=== PATIENT | male | born 1945 | race Caucasian/White ===

== ENCOUNTER 2017-07-15 11:39 | Emergency (ER) | payer MEDICARE, OTHER ==
[2017-07-15 12:06] VITALS: BP 147/75
--- NOTE | 2017-07-15 12:42 | EDM.PDOC ---
ED HPI GENERAL MEDICAL PROBLEM - General Chief Complaint: Gastrointestinal Problem Stated Complaint: PAIN IN BOTTOM Time Seen by Provider: 07/15/17 12:24 Source of Information: Reports: Patient History Limitations: Reports: No Limitations - History of Present Illness INITIAL COMMENTS - FREE TEXT/NARRATIVE: HISTORY AND PHYSICAL: History of present illness: Patient is a 71-year-old male who presents to the emergency room with complaints of abdominal pain related to constipation. He states for the past 3 days he has had difficulty having a bowel movement. He reports he tried to digitally extracted himself but was only able to get "a tablespoon or so out". Has taken several doses of oral laxatives without relief. Does report that he has had difficulty urinating, "because there is so much pressure". He denies any fever, chills, chest pain or shortness of breath. He denies any nausea or vomiting. Review of systems: As per history of present illness and below otherwise all systems reviewed and negative. Past medical history: As per history of present illness and as reviewed below otherwise noncontributory. Surgical history: As per history of present illness and as reviewed below otherwise noncontributory. Social history: No reported history of drug or alcohol abuse. Family history: As per history of present illness and as reviewed below otherwise noncontributory. Physical exam: Gen.: Developed and well-nourished 71-year-old male. Alert and oriented. Nontoxic appearing and in no acute distress. HEENT: Atraumatic, normocephalic, pupils reactive, negative for conjunctival pallor or scleral icterus, mucous membranes moist, throat clear, neck supple, nontender, trachea midline. Lungs: Clear to auscultation, breath sounds equal bilaterally, chest nontender. Heart: S1S2, regular, negative for clicks, rubs, or JVD. Abdomen: Semi-firm, obese, nontender. Negative for masses or hepatosplenomegaly. Negative for costovertebral tenderness. Pelvis: Stable nontender. Genitourinary: Deferred. Rectal: This done with a chaparone at the bedside. Rectal hemorrhoids noted. There is no stool within the distal portion of the rectum that was palpated. Extremities: Atraumatic, moves all extremities per self, negative for cords or calf pain. Neurovascular unremarkable. Neuro: Awake, alert, oriented. Cranial nerves II through XII unremarkable. Cerebellum unremarkable. Motor and sensory unremarkable throughout. Exam nonfocal. Abdominal x-ray shows no obstruction is minimal gas and stool pattern. Patient states he has not been able to void very much. Patient was up to the bathroom and voided approximately 100 mls. Post void bladder scanner was done which showed around 300 left. I will do a CT of the abdomen and pelvis to further assess. CT of the abdomen/pelvis shows no bowel or colonic obstruction. Constipation noted. Obstructive 2 mm stone in the left intrarental collecting system. Labs are within normal limits. This was shared with the patient and at bedside. We discussed in length follow-up with urology. The patient and are adamant that he straight catheter to drain his bladder regardless of him being able to void. He is aware that the urinary retention is likely due to his history of BPH. This does sound chronic in nature. Give him Anusol HC for the rectal pain he is experiencing with straining to have a bowel movement. He will follow-up with urology and/or his primary caregiver in the next couple days. Diagnostics: CBC, CMP, Abdominal Flat Plat, UA Therapeutics: Enema Impression: Constipation Urinary retention Plan: 1. Please take 1/2 bottle of magnesium citrate for constipation. Start taking a Colace daily. Anusol- HC cream has been prescribed for you for the rectal pain. Please apply 2-4 times daily; after bowel movement. 2. Your urinary retention is likely due to BPH. Please follow up with your urologist, Dr Barker within the next week. 3. Follow-up with your primary caregiver in the next 1-2 days. Return to the ED as needed and as discussed. Definitive disposition and diagnosis as appropriate pending reevaluation and review of above. Rectal Pain Score (Numeric/FACES): 10 - Related Data Allergies Allergy/AdvReac Type Severity Reaction Status Date / Time Penicillins Allergy Swelling Verified 07/15/17 12:06 shellfish derived Allergy Airway Verified 07/15/17 12:06 Tightness tetanus immune globulin Allergy Cannot Verified 07/15/17 12:06 Remember Home Meds: Home Meds Levothyroxine [Synthroid] 100 mcg PO DAILY 12/04/13 [History] Metoprolol Succinate 25 mg PO DAILY 12/04/13 [History] Simvastatin 40 tab PO DAILY 12/04/13 [History] Tamsulosin HCl 0.4 mg PO DAILY 12/04/13 [History] Aspirin [Parker Chewable Aspirin] 81 mg PO DAILY 08/01/14 [History] Sennosides/Docusate Sodium [Stool Softener] 1 tab PO BID 08/01/14 [History] Gabapentin [Neurontin] 300 mg PO TID 03/11/16 [History] Isosorbide Mononitrate [Isosorbide Mononitrate ER] 30 mg PO DAILY 03/11/16 [ History] metFORMIN HCl [Metformin HCl] 500 mg PO DAILY 03/11/16 [History] Past Medical History HEENT History: Reports: Hard of Hearing Other HEENT History: wears glasses, has upper and lower dentures, has bilateral hearing aides Cardiovascular History: Reports: High Cholesterol, Hypertension Respiratory History: Reports: Sleep Apnea Other Respiratory History: does NOT use CPAP Gastrointestinal History: Reports: Colon Polyp Genitourinary History: Reports: Prostate Disorder Musculoskeletal History: Reports: Fracture Other Musculoskeletal History: fingers Neurological History: Reports: Neuropathy, Peripheral Psychiatric History: Reports: None Endocrine/Metabolic History: Reports: Hypothyroidism, Obesity/BMI 30+ Other Endocrine/Metabolic History: takes Metformin for diabetes Hematologic History: Reports: Blood Transfusion(s) Immunologic History: Reports: None Oncologic (Cancer) History: Reports: None Dermatologic History: Reports: None - Infectious Disease History Infectious Disease History: Reports: Chicken Pox, Measles, Mumps - Past Surgical History Head Surgeries/Procedures: Reports: None GI Surgical History: Reports: Colonoscopy, Hernia, Abdominal Endocrine Surgical History: Reports: None Musculoskeletal Surgical History: Reports: None Oncologic Surgical History: Reports: None Dermatological Surgical History: Reports: None Social & Family History - Family History Family Medical History: Noncontributory - Tobacco Use Smoking Status *Q: Never Smoker Years of Tobacco use: 40 Second Hand Smoke Exposure: No - Alcohol Use Days Per Week of Alcohol Use: 0 - Recreational Drug Use Recreational Drug Use: No Drug Use in Last 12 Months: No ED ROS GENERAL - Review of Systems Review Of Systems: ROS reveals no pertinent complaints other than HPI. ED EXAM, GI/ABD - Physical Exam Exam: See Below (See dictation) Course - Vital Signs Last Recorded V/S: Last Vital Signs Temp 97.8 F 07/15/17 12:04 Pulse 83 07/15/17 12:04 Resp 18 03/21/18 12:04 BP 147/75 H 03/21/18 12:04 Pulse Ox 94 L 07/15/17 12:04 - Orders/Labs/Meds Orders: Active Orders 24 hr Category Date Time Status Communication Order [RC] STAT Care 07/15/17 12:25 Active Enema [RC] ASDIRECTED Care 07/15/17 13:11 Active Abdomen Pelvis wo Cont [CT] Stat Exams 07/15/17 13:22 Taken Labs: Laboratory Tests 07/15/17 07/15/17 07/15/17 Range/Units 12:46 12:46 13:25 WBC 9.92 (4.0-11.0) K/uL RBC 4.24 L (4.50-5.90) M/uL Hgb 13.8 (13.0-17.0) g/dL Hct 40.0 (38.0-50.0) % MCV 94.3 (80.0-98.0) fL MCH 32.5 H (27.0-32.0) pg MCHC 34.5 (31.0-37.0) g/dL RDW Std Deviation 44.5 (28.0-62.0) fl RDW Coeff of [place] 13 (11.0-15.0) % Plt Count 221 (150-400) K/uL MPV 9.60 (7.40-12.00) fL Neut % (Auto) 72.5 (48.0-80.0) % Lymph % (Auto) 17.5 (16.0-40.0) % Pike % (Auto) 8.3 (0.0-15.0) % Eos % (Auto) 1.4 (0.0-7.0) % Baso % (Auto) 0.3 (0.0-1.5) % Neut # (Auto) 7.2 H (1.4-5.7) K/uL Lymph # (Auto) 1.7 (0.6-2.4) K/uL Pike # (Auto) 0.8 (0.0-0.8) K/uL Eos # (Auto) 0.1 (0.0-0.7) K/uL Baso # (Auto) 0.0 (0.0-0.1) K/uL Nucleated RBC % 0.0 /100WBC Nucleated RBCs # 0 K/uL Sodium 136 (136-148) mmol/L Potassium 4.0 (3.5-5.1) mmol/L Chloride 102 (98-107) mmol/L Carbon Dioxide 26.5 (21.0-32.0) mmol/L BUN 16 (7.0-18.0) mg/dL Creatinine 1.0 (0.8-1.3) mg/dL Est Cr Clr Drug Dosing 70.97 mL/min Estimated GFR (MDRD) > 60.0 ml/min Glucose 96 (74-106) mg/dL Calcium 9.0 (8.5-10.1) mg/dL Total Bilirubin 0.4 (0.2-1.0) mg/dL AST 36 (15-37) IU/L ALT 43 (14-63) IU/L Alkaline Phosphatase 71 (46-116) U/L Total Protein 7.1 (6.4-8.2) g/dL Albumin 3.7 (3.4-5.0) g/dL Globulin 3.4 (2.0-3.5) g/dL Albumin/Globulin Ratio 1.1 L (1.3-2.8) Urine Color YELLOW Urine Appearance CLEAR Urine pH 6.0 (5.0-8.0) Ur Specific Daphne 1.015 (1.001-1.035) Urine Protein NEGATIVE (NEGATIVE) mg/dL Urine Glucose (UA) NEGATIVE (NEGATIVE) mg/dL Urine Ketones NEGATIVE (NEGATIVE) mg/dL Urine Occult Blood NEGATIVE (NEGATIVE) Urine Nitrite NEGATIVE (NEGATIVE) Urine Bilirubin NEGATIVE (NEGATIVE) Urine Urobilinogen 0.2 (<2.0) EU/dL Ur Leukocyte Esterase NEGATIVE (NEGATIVE) Urine RBC 0-1 (0-2/HPF) Urine WBC 0-1 (0-5/HPF) Ur Epithelial Cells RARE (NONE-FEW) Urine Bacteria RARE (NEGATIVE) Departure - Departure Time of Disposition: 15:06 Disposition: Home, Self-Care 01 Clinical Impression: Urinary retention Constipation Qualifiers: Constipation type: unspecified constipation type Qualified Code(s): K59.00 - Constipation, unspecified - Discharge Information Instructions: Constipation, Adult, Acute Urinary Retention, Male, [id number] Referrals: PCP,None [Primary Care Provider] - Forms: ED Department Discharge Additional Instructions: The following information is given to patients seen in the emergency department who are being discharged to home. This information is to outline your options for follow-up care. We provide all patients seen in our emergency department with a follow-up referral. The need for follow-up, as well as the timing and circumstances, are variable depending upon the specifics of your emergency department visit. If you don't have a primary care physician on staff, we will provide you with a referral. We always advise you to contact your personal physician following an emergency department visit to inform them of the circumstance of the visit and for follow-up with them and/or the need for any referrals to a consulting specialist. The emergency department will also refer you to a specialist when appropriate. This referral assures that you have the opportunity for follow-up care with a specialist. All of these measure are taken in an effort to provide you with optimal care, which includes your follow-up. Under all circumstances we always encourage you to contact your private physician who remains a resource for coordinating your care. When calling for follow-up care, please make the office aware that this follow-up is from your recent emergency room visit. If for any reason you are refused follow-up, please contact the [facility] Emergency Department at and asked to speak to the emergency department charge nurse. [facility] - Urology [address] [place] [id number] [facility] [address] [place] [id number] 1. Please take 1/2 bottle of magnesium citrate for constipation (Can pick up operator over the counter). Start taking a Colace once daily. Anusol- HC cream has been prescribed for you for the rectal pain. Please apply 2-4 times daily; after bowel movement. 2. Your urinary retention is likely due to BPH. Please follow up with your urologist, Dr Barker within the next week. 3. Follow-up with your primary caregiver in the next 1-2 days. Return to the ED as needed and as discussed. - My Orders Last 24 Hours: My Active Orders 07/15/17 12:25 Communication Order [RC] STAT 07/15/17 13:11 Enema [RC] ASDIRECTED 07/15/17 13:22 Abdomen Pelvis wo Cont [CT] Stat - Assessment/Plan Last 24 Hours: My Active Orders 07/15/17 12:25 Communication Order [RC] STAT 07/15/17 13:11 Enema [RC] ASDIRECTED 07/15/17 13:22 Abdomen Pelvis wo Cont [CT] Stat
--- NOTE | 2017-07-15 13:06 | CR ---
EXAMINATION: Abdomen HISTORY: Pain COMPARISON: None TECHNIQUE: AP and upright views FINDINGS: There is no free air under the diaphragm. No abnormal calcifications project over the kidne ys. There is a nonobstructive bowel gas pattern with a small amount of stool and gas within the colon . Postsurgical changes projecting over the pelvis. Degenerative changes noted within the lower lumbar spine without acute osseous abdomen bodies. IMPRESSION: No acute findings demonstrated within the abdomen.
[2017-07-15 13:19] LABS: CHLORIDE,CL 102 mmol/L (98-107); SODIUM,NA 136 mmol/L (136-148)
--- NOTE | 2017-07-16 10:29 | CT ---
EXAM DATE: 07/15/17 PATIENT'S AGE: 71 Patient: RADHA COOPER Facility: [place], [place] Site . Site : 1945 Study: CT Abdomen [id number]/21/2018 2:31:05 PM Ordering Physician: Doctor Peterson Final Report: INDICATION: Pain. Bloating. HISTORY: Abdominal pain and bloating. COMPARISON: None. TECHNIQUE: CT of the abdomen and pelvis. No intravenous contrast. Coronal/sagittal reconstruction images. FINDINGS: Lung bases: There is no pleural or pericardial effusion. The heart size is normal. The lung bases demonstrate no acute airspace disease. No basilar pneumothorax. Abdomen/pelvis: There is no solid hepatic mass. The hepatic morphology is normal. No inflammatory changes at the gallbladder. Minor perinephric stranding. Benign right renal cysts. The largest is seen in the right kidney, measuring 4.0 cm in image 59, series 201. Vascular calcifications, along with a 2 mm stone in the left kidney on image 42. No obstructive urolith. Prostate does not appear enlarged. Constipation. Colonic diverticulosis. No findings for diverticulitis. No transition point to indicate a mechanical small bowel or colonic obstruction. Normal caliber appendix. Moderate arterial calcifications in a normal caliber abdominal aorta. No adenopathy by size criteria in the pelvis, retroperitoneum, gastrohepatic ligament, small bowel mesentery. Postoperative changes about the anterior abdominal wall, presumably related to an umbilical hernia repair. The bone windows demonstrate bridging osteophytes at the right SI joint. No lytic or blastic bone lesions. The alignment is preserved. On sagittal reconstruction images, vertebral body heights are maintained. IMPRESSION: 1. No small bowel or colonic obstruction. 2. Constipation. 3. Colonic diverticulosis, but no findings for diverticulitis. 4. Benign right renal cysts. 5. Nonobstructive, 2 mm stone in the left intrarenal collecting system. Additional calcifications about the renal jose antonio are most likely vascular in nature. Dictated by Guerrero Orellana MD @ 07/15/2017 2:53:36 PM Dictated by: Guerrero Orellana MD @ 07/15/2017 14:53:49 (Electronic Signature) Report Signed by Proxy. [facility]
== END 2017-07-15 16:04 | disposition home or self-care (01) ==
LOC: MW.ED 11:39
DX: K59.00 Constipation, unspecified (principal); R33.9 Retention of urine, unspecified; E78.00 Pure hypercholesterolemia, unspecified; I10 Essential (primary) hypertension; E11.42 Type 2 diabetes mellitus with diabetic polyneuropathy; E03.9 Hypothyroidism, unspecified; Z88.0 Allergy status to penicillin; Z91.013 Allergy to seafood; Z79.899 Other long term (current) drug therapy; Z79.84 Long term (current) use of oral hypoglycemic drugs; Z79.82 Long term (current) use of aspirin
CPT/HCPCS: 36415; 74019; 74019-26; 74176; 74176-26; 80053; 81001; 85025; 99283; 99284

== ENCOUNTER 2017-07-18 21:19 | Emergency (ER) | payer MEDICARE, OTHER ==
--- NOTE | 2017-07-18 21:32 | EDM.PDOC ---
ED HPI GENERAL MEDICAL PROBLEM - General Chief Complaint: Genitourinary Problem Stated Complaint: PROSTATE PROBLEMS Time Seen by Provider: 07/18/17 21:31 Source of Information: Reports: Patient - History of Present Illness INITIAL COMMENTS - FREE TEXT/NARRATIVE: HISTORY AND PHYSICAL: History of present illness: [Patient is been in the ER a couple of times over the last week with difficulty with urination history of enlarged prostate on Flomax, he is scheduled to see urology on Thursday in [place] one week from today. He had a complaint of inability to urinate however he was able to urinate and provide a urine sample, 178 mL's post void residual on bladder scan. Secondary complaint is that of hemorrhoids and pain with bowel movement, he was advised to use a laxative such as MiraLAX previously he did this one day with good benefit but discontinued. He has been using Preparation H No fever nausea vomiting chills sweats no chest pain shortness breath headache dizziness or palpitation ] Review of systems: As per history of present illness and below otherwise all systems reviewed and negative. Past medical history: As per history of present illness and as reviewed below otherwise noncontributory. Surgical history: As per history of present illness and as reviewed below otherwise noncontributory. Social history: No reported history of drug or alcohol abuse. Family history: As per history of present illness and as reviewed below otherwise noncontributory. Physical exam: HEENT: Atraumatic, normocephalic, pupils reactive, negative for conjunctival pallor or scleral icterus, mucous membranes moist, throat clear, neck supple, nontender, trachea midline. Lungs: Clear to auscultation, breath sounds equal bilaterally, chest nontender. Heart: S1S2, regular, negative for clicks, rubs, or JVD. Abdomen: Soft, nondistended, nontender. Negative for masses or hepatosplenomegaly. Negative for costovertebral tenderness. Pelvis: Stable nontender. Genitourinary: Deferred. Rectal: Deferred. Extremities: Atraumatic, negative for cords or calf pain. Neurovascular unremarkable. Neuro: Awake, alert, oriented. Cranial nerves II through XII unremarkable. Cerebellum unremarkable. Motor and sensory unremarkable throughout. Exam nonfocal. Diagnostics: [bladder scan cbc, cmp, ua urine culture Patient refuses flat and upright x-ray Therapeutics: ] Continue current medications MiraLAX daily Baby wipes post bowel movement Continue Preparation H, we did discuss rectal suppositories as well Impression: History of prostate enlargement History of hemorrhoids Chronic history of baseline Definitive disposition and diagnosis as appropriate pending reevaluation and review of above. Hypogastric Pain Score (Numeric/FACES): 5 - Related Data Allergies Allergy/AdvReac Type Severity Reaction Status Date / Time Penicillins Allergy Swelling Verified 07/15/17 12:06 shellfish derived Allergy Airway Verified 07/15/17 12:06 Tightness tetanus immune globulin Allergy Cannot Verified 07/15/17 12:06 Remember Home Meds: Home Meds Levothyroxine [Synthroid] 100 mcg PO DAILY 12/04/13 [History] Metoprolol Succinate 25 mg PO DAILY 12/04/13 [History] Simvastatin 40 tab PO DAILY 12/04/13 [History] Tamsulosin HCl 0.4 mg PO DAILY 12/04/13 [History] Aspirin [Parker Chewable Aspirin] 81 mg PO DAILY 08/01/14 [History] Sennosides/Docusate Sodium [Stool Softener] 1 tab PO BID 08/01/14 [History] Gabapentin [Neurontin] 300 mg PO BID 03/11/16 [History] Isosorbide Mononitrate [Isosorbide Mononitrate ER] 30 mg PO DAILY 03/11/16 [ History] metFORMIN HCl [Metformin HCl] 500 mg PO DAILY 03/11/16 [History] Past Medical History HEENT History: Reports: Hard of Hearing Other HEENT History: wears glasses, has upper and lower dentures, has bilateral hearing aides Cardiovascular History: Reports: High Cholesterol, Hypertension Respiratory History: Reports: Sleep Apnea Other Respiratory History: does NOT use CPAP Gastrointestinal History: Reports: Colon Polyp Genitourinary History: Reports: Prostate Disorder Musculoskeletal History: Reports: Fracture Other Musculoskeletal History: fingers Neurological History: Reports: Neuropathy, Peripheral Psychiatric History: Reports: None Endocrine/Metabolic History: Reports: Hypothyroidism, Obesity/BMI 30+ Other Endocrine/Metabolic History: takes Metformin for diabetes Hematologic History: Reports: Blood Transfusion(s) Immunologic History: Reports: None Oncologic (Cancer) History: Reports: None Dermatologic History: Reports: None - Infectious Disease History Infectious Disease History: Reports: Chicken Pox, Measles, Mumps - Past Surgical History Head Surgeries/Procedures: Reports: None GI Surgical History: Reports: Colonoscopy, Hernia, Abdominal Endocrine Surgical History: Reports: None Musculoskeletal Surgical History: Reports: None Oncologic Surgical History: Reports: None Dermatological Surgical History: Reports: None Social & Family History - Family History Family Medical History: Noncontributory - Tobacco Use Smoking Status *Q: Never Smoker Years of Tobacco use: 40 Second Hand Smoke Exposure: No - Alcohol Use Days Per Week of Alcohol Use: 0 - Recreational Drug Use Recreational Drug Use: No Drug Use in Last 12 Months: No ED ROS GENERAL - Review of Systems Review Of Systems: ROS reveals no pertinent complaints other than HPI. ED EXAM, GENERAL - Physical Exam Exam: See Below Course - Vital Signs Last Recorded V/S: Last Vital Signs Temp 98.4 F 07/18/17 21:19 Pulse 70 07/18/17 21:19 Resp 18 07/18/17 21:19 BP 118/68 07/18/17 21:19 Pulse Ox 95 07/18/17 21:19 - Orders/Labs/Meds Orders: Active Orders 24 hr Category Date Time Status CULTURE URINE [RM] Stat Lab 07/18/17 21:55 Received Labs: Laboratory Tests 07/18/17 07/18/17 07/18/17 Range/Units 21:48 21:48 21:48 WBC 7.24 (4.0-11.0) K/uL RBC 4.13 L (4.50-5.90) M/uL Hgb 13.4 (13.0-17.0) g/dL Hct 38.8 (38.0-50.0) % MCV 93.9 (80.0-98.0) fL MCH 32.4 H (27.0-32.0) pg MCHC 34.5 (31.0-37.0) g/dL RDW Std Deviation 44.8 (28.0-62.0) fl RDW Coeff of [place] 13 (11.0-15.0) % Plt Count 228 (150-400) K/uL MPV 9.60 (7.40-12.00) fL Neut % (Auto) 54.2 (48.0-80.0) % Lymph % (Auto) 31.8 (16.0-40.0) % [place] % (Auto) 9.0 (0.0-15.0) % Eos % (Auto) 4.6 (0.0-7.0) % Baso % (Auto) 0.4 (0.0-1.5) % Neut # (Auto) 3.9 (1.4-5.7) K/uL Lymph # (Auto) 2.3 (0.6-2.4) K/uL [place] # (Auto) 0.7 (0.0-0.8) K/uL Eos # (Auto) 0.3 (0.0-0.7) K/uL Baso # (Auto) 0.0 (0.0-0.1) K/uL Nucleated RBC % 0.0 /100WBC Nucleated RBCs # 0 K/uL Sodium 139 (136-148) mmol/L Potassium 3.8 (3.5-5.1) mmol/L Chloride 106 (98-107) mmol/L Carbon Dioxide 24.4 (21.0-32.0) mmol/L BUN 18 (7.0-18.0) mg/dL Creatinine 1.1 (0.8-1.3) mg/dL Est Cr Clr Drug Dosing 64.52 mL/min Estimated GFR (MDRD) > 60.0 ml/min Glucose 100 (74-106) mg/dL Calcium 9.1 (8.5-10.1) mg/dL Total Bilirubin 0.2 (0.2-1.0) mg/dL AST 32 (15-37) IU/L ALT 39 (14-63) IU/L Alkaline Phosphatase 78 (46-116) U/L Total Protein 6.8 (6.4-8.2) g/dL Albumin 3.6 (3.4-5.0) g/dL Globulin 3.2 (2.0-3.5) g/dL Albumin/Globulin Ratio 1.1 L (1.3-2.8) Prostate Specific Ag 1.90 (0.05-4.00) ng/mL Urine Color Urine Appearance Urine pH (5.0-8.0) Ur Specific [place] (1.001-1.035) Urine Protein (NEGATIVE) mg/dL Urine Glucose (UA) (NEGATIVE) mg/dL Urine Ketones (NEGATIVE) mg/dL Urine Occult Blood (NEGATIVE) Urine Nitrite (NEGATIVE) Urine Bilirubin (NEGATIVE) Urine Urobilinogen (<2.0) EU/dL Ur Leukocyte Esterase (NEGATIVE) Urine RBC (0-2/HPF) Urine WBC (0-5/HPF) Ur Epithelial Cells (NONE-FEW) Urine Bacteria (NEGATIVE) Urine Mucus (NONE-MOD) 07/18/17 Range/Units 21:55 WBC (4.0-11.0) K/uL RBC (4.50-5.90) M/uL Hgb (13.0-17.0) g/dL Hct (38.0-50.0) % MCV (80.0-98.0) fL MCH (27.0-32.0) pg MCHC (31.0-37.0) g/dL RDW Std Deviation (28.0-62.0) fl RDW Coeff of [place] (11.0-15.0) % Plt Count (150-400) K/uL MPV (7.40-12.00) fL Neut % (Auto) (48.0-80.0) % Lymph % (Auto) (16.0-40.0) % [place] % (Auto) (0.0-15.0) % Eos % (Auto) (0.0-7.0) % Baso % (Auto) (0.0-1.5) % Neut # (Auto) (1.4-5.7) K/uL Lymph # (Auto) (0.6-2.4) K/uL [place] # (Auto) (0.0-0.8) K/uL Eos # (Auto) (0.0-0.7) K/uL Baso # (Auto) (0.0-0.1) K/uL Nucleated RBC % /100WBC Nucleated RBCs # K/uL Sodium (136-148) mmol/L Potassium (3.5-5.1) mmol/L Chloride (98-107) mmol/L Carbon Dioxide (21.0-32.0) mmol/L BUN (7.0-18.0) mg/dL Creatinine (0.8-1.3) mg/dL Est Cr Clr Drug Dosing mL/min Estimated GFR (MDRD) ml/min Glucose (74-106) mg/dL Calcium (8.5-10.1) mg/dL Total Bilirubin (0.2-1.0) mg/dL AST (15-37) IU/L ALT (14-63) IU/L Alkaline Phosphatase (46-116) U/L Total Protein (6.4-8.2) g/dL Albumin (3.4-5.0) g/dL Globulin (2.0-3.5) g/dL Albumin/Globulin Ratio (1.3-2.8) Prostate Specific Ag (0.05-4.00) ng/mL Urine Color YELLOW Urine Appearance CLEAR Urine pH 6.0 (5.0-8.0) Ur Specific [place] 1.025 (1.001-1.035) Urine Protein NEGATIVE (NEGATIVE) mg/dL Urine Glucose (UA) NEGATIVE (NEGATIVE) mg/dL Urine Ketones NEGATIVE (NEGATIVE) mg/dL Urine Occult Blood NEGATIVE (NEGATIVE) Urine Nitrite NEGATIVE (NEGATIVE) Urine Bilirubin NEGATIVE (NEGATIVE) Urine Urobilinogen 0.2 (<2.0) EU/dL Ur Leukocyte Esterase NEGATIVE (NEGATIVE) Urine RBC NONE SEEN (0-2/HPF) Urine WBC 0-1 (0-5/HPF) Ur Epithelial Cells NOT SEEN (NONE-FEW) Urine Bacteria RARE (NEGATIVE) Urine Mucus FEW (NONE-MOD) Departure - Departure Time of Disposition: 22:50 Disposition: Home, Self-Care 01 Condition: Good Clinical Impression: Hemorrhoids - Discharge Information Referrals: PCP,None [Primary Care Provider] - Forms: ED Department Discharge Additional Instructions: Continue current home medications Again as discussed sitz bath and baby wipes post bowel movement Rectal suppositories may benefit Return if symptoms persist or worsen Follow-up with urology as scheduled next week The following information is given to patients seen in the emergency department who are being discharged to home. This information is to outline your options for follow-up care. We provide all patients seen in our emergency department with a follow-up referral. The need for follow-up, as well as the timing and circumstances, are variable depending upon the specifics of your emergency department visit. If you don't have a primary care physician on staff, we will provide you with a referral. We always advise you to contact your personal physician following an emergency department visit to inform them of the circumstance of the visit and for follow-up with them and/or the need for any referrals to a consulting specialist. The emergency department will also refer you to a specialist when appropriate. This referral assures that you have the opportunity for follow-up care with a specialist. All of these measure are taken in an effort to provide you with optimal care, which includes your follow-up. Under all circumstances we always encourage you to contact your private physician who remains a resource for coordinating your care. When calling for follow-up care, please make the office aware that this follow-up is from your recent emergency room visit. If for any reason you are refused follow-up, please contact the [facility] emergency department at and asked to speak to the emergency department charge nurse. - My Orders Last 24 Hours: My Active Orders 07/18/17 21:55 CULTURE URINE [RM] Stat - Assessment/Plan Last 24 Hours: My Active Orders 07/18/17 21:55 CULTURE URINE [RM] Stat
[2017-07-18] MEDS ORDERED: Enalaprilat 1.25 MG/ML SDV IVPUSH ONE (22:08)
[2017-07-18 22:21] LABS: CHLORIDE,CL 106 mmol/L (98-107); SODIUM,NA 139 mmol/L (136-148)
[2017-07-18 22:53] VITALS: BP 116/70
== END 2017-07-18 22:58 | disposition home or self-care (01) ==
LOC: MW.ED 21:19
DX: K64.9 Unspecified hemorrhoids (principal); I10 Essential (primary) hypertension; E11.9 Type 2 diabetes mellitus without complications; E03.9 Hypothyroidism, unspecified; E78.00 Pure hypercholesterolemia, unspecified; Z79.82 Long term (current) use of aspirin; Z88.0 Allergy status to penicillin; Z88.7 Allergy status to serum and vaccine; Z79.84 Long term (current) use of oral hypoglycemic drugs; Z91.013 Allergy to seafood; Z79.899 Other long term (current) drug therapy
CPT/HCPCS: 36415; 80053; 81001; 84153; 85025; 87086; 99283

== ENCOUNTER 2018-08-11 12:34 | Emergency (ER) | payer MEDICARE, OTHER ==
--- NOTE | 2018-08-11 13:02 | EDM.PDOC ---
ED HPI GENERAL MEDICAL PROBLEM - General Chief Complaint: Gastrointestinal Problem Stated Complaint: CONSTIPATED AND DIFFICULTY URINATING Time Seen by Provider: 08/11/18 12:57 Source of Information: Reports: Patient History Limitations: Reports: No Limitations - History of Present Illness INITIAL COMMENTS - FREE TEXT/NARRATIVE: HISTORY AND PHYSICAL: History of present illness: Patient is a 72-year-old male who presents to the emergency room today with complaints of constipation and decreased urinary output. He states he voided a appropriate amount at 7 AM this morning but has not been able to void since that time. He states he feels like his bladder is full but and able to start her initiate stream. Patient does have a history of enlarged prostate and has been on Flomax in the past. He has also seen Dr. Barker for this issue. He is also concerned as he has not had a bowel movement yet today. He states he routinely has a bowel movement daily and gave himself an enema this morning without any results. Yesterday's BM was normal. Denies any blood or mucousy stools. Patient denies any fever, chills, headache, change in vision, syncope or near syncope. Denies any chest pain, back pain, shortness of breath or cough. Denies any abdominal pain, nausea, vomiting. Has not noted any blood in urine or stool. Patient has been eating and drinking appropriately. Review of systems: As per history of present illness and below otherwise all systems reviewed and negative. Past medical history: As per history of present illness and as reviewed below otherwise noncontributory. Surgical history: As per history of present illness and as reviewed below otherwise noncontributory. Social history: See social history for further information Family history: As per history of present illness and as reviewed below otherwise noncontributory. Physical exam: General: Well-developed and well-nourished 72-year-old male. Alert and oriented. Nontoxic appearing and in no acute distress. HEENT: Atraumatic, normocephalic, pupils equal and reactive bilaterally, negative for conjunctival pallor or scleral icterus, mucous membranes moist, TMs normal bilaterally, throat clear, neck supple, nontender, trachea midline. No drooling or trismus noted. No meningeal signs. No hot potato voice noted. Lungs: Clear to auscultation, breath sounds equal bilaterally, chest nontender. Heart: S1S2, regular rate and rhythm without overt murmur Abdomen: Obese, semifirm, nontender. Negative for masses. Negative for costovertebral tenderness. Pelvis: Stable nontender. Genitourinary: Deferred. Rectal: Deferred. Skin: Intact, warm, dry. No lesions or rashes noted. Extremities: Atraumatic, moves all extremities per self with difficulty or deficits, negative for cords or calf pain. Neurovascular unremarkable. Neuro: Awake, alert, oriented. Cranial nerves II through XII unremarkable. Cerebellum unremarkable. Motor and sensory unremarkable throughout. Exam nonfocal. Notes: Upon patient arrival he states he needs to have a bowel movement. Patient states he had a large bowel movement and no longer has concerns of his constipation. Therefore the x-ray will be canceled at this time. We discussed [id number] medications he can take for routine/regular bowel movements. Bladder scanner shows 396cc preop void. Patient states he is unable to give a urine sample. Fully catheter was inserted for urinalysis. UA shows no evidence of a bladder infection. Dr Barker was consulted on this patient. Findings and my discussion with Dr. Barker were reviewed with the patient. Lucero recommends that the patient take 2 tabs of the Flomax daily until Thursday along with 3 days of Cipro to prevent UTI. Keep the Frazier catheter in place and patient may remove per himself on Thursday or return to the emergency room to have this removed by staff. This information was shared with the patient. Patient will be discharged to home. Supportive care measures were reviewed and discussed. Voices understanding and is agreeable to plan of care. Denies any further questions or concerns at this time. Diagnostics: Bladder scan, flat and upright, UA Therapeutics: Frazier catheter Impression: History of enlarged prostate Urinary retention Plan: 1. Dr Barker wants you to take 2 tabs of your Flomax daily (2 tabs of Flomax 0.4mg) until Thursday. On Thursday, you may return to taking one dose daily. Keep the catheter in until Thursday. You may return on Thursday to have this removed if your uncomfortable doing this yourself. 2. Colace or MiraLAX as needed for your constipation concerns. 3. Take antbiotic as directed. Drink plenty of water. 4. Return to the ED as needed and as discussed. Definitive disposition and diagnosis as appropriate pending reevaluation and review of above. Abdominal Pain Score (Numeric/FACES): 10 - Related Data Allergies Allergy/AdvReac Type Severity Reaction Status Date / Time Penicillins Allergy Swelling Verified 08/11/18 12:55 shellfish derived Allergy Airway Verified 08/11/18 12:55 Tightness tetanus immune globulin Allergy Cannot Verified 08/11/18 12:55 Remember Home Meds: Home Meds Levothyroxine [Synthroid] 100 mcg PO DAILY 12/04/13 [History] Metoprolol Succinate 25 mg PO DAILY 12/04/13 [History] Simvastatin 40 tab PO DAILY 12/04/13 [History] Tamsulosin HCl 0.4 mg PO DAILY 12/04/13 [History] Sennosides/Docusate Sodium [Stool Softener] 1 tab PO BID 08/01/14 [History] Gabapentin [Neurontin] 300 mg PO BID 03/11/16 [History] Isosorbide Mononitrate [Isosorbide Mononitrate ER] 30 mg PO DAILY 03/11/16 [ History] metFORMIN HCl [Metformin HCl] 500 mg PO DAILY 03/11/16 [History] Ciprofloxacin HCl [Cipro] 500 mg PO BID 3 Days #6 tablet 08/11/18 [Rx] Past Medical History HEENT History: Reports: Hard of Hearing Other HEENT History: wears glasses, has upper and lower dentures, has bilateral hearing aides Cardiovascular History: Reports: High Cholesterol, Hypertension Respiratory History: Reports: Sleep Apnea Other Respiratory History: does NOT use CPAP Gastrointestinal History: Reports: Colon Polyp Genitourinary History: Reports: Prostate Disorder Musculoskeletal History: Reports: Fracture Other Musculoskeletal History: fingers Neurological History: Reports: Neuropathy, Peripheral Psychiatric History: Reports: None Endocrine/Metabolic History: Reports: Hypothyroidism, Obesity/BMI 30+ Other Endocrine/Metabolic History: takes Metformin for diabetes Hematologic History: Reports: Blood Transfusion(s) Immunologic History: Reports: None Oncologic (Cancer) History: Reports: None Dermatologic History: Reports: None - Infectious Disease History Infectious Disease History: Reports: Chicken Pox, Measles, Mumps - Past Surgical History Head Surgeries/Procedures: Reports: None GI Surgical History: Reports: Colonoscopy, Hernia, Abdominal Endocrine Surgical History: Reports: None Musculoskeletal Surgical History: Reports: None Oncologic Surgical History: Reports: None Dermatological Surgical History: Reports: None Social & Family History - Family History Family Medical History: Noncontributory ED ROS GENERAL - Review of Systems Review Of Systems: ROS reveals no pertinent complaints other than HPI. ED EXAM, GI/ABD - Physical Exam Exam: See Below (See dictation) Course - Vital Signs Last Recorded V/S: Last Vital Signs Temp 97.8 F 08/11/18 12:56 Pulse 78 08/11/18 15:50 Resp 18 08/11/18 15:50 BP 152/70 H 08/11/18 15:50 Pulse Ox 95 08/11/18 15:50 - Orders/Labs/Meds Orders: Active Orders 24 hr Category Date Time Status Bladder Scan [RC] ASDIRECTED Care 08/11/18 13:00 Active Frazier Catheter Insertion [Insert Urinary Catheter] [OM. Care 08/11/18 14:00 Ordered PC] Q24H Urinary Catheter Assessment [RC] ASDIRECTED Care 08/11/18 13:48 Active Labs: Laboratory Tests 08/11/18 Range/Units 13:41 Urine Color YELLOW Urine Appearance CLEAR Urine pH 6.0 (5.0-8.0) Ur Specific [place] 1.020 (1.001-1.035) Urine Protein NEGATIVE (NEGATIVE) mg/dL Urine Glucose (UA) NEGATIVE (NEGATIVE) mg/dL Urine Ketones NEGATIVE (NEGATIVE) mg/dL Urine Occult Blood NEGATIVE (NEGATIVE) Urine Nitrite NEGATIVE (NEGATIVE) Urine Bilirubin NEGATIVE (NEGATIVE) Urine Urobilinogen 0.2 (<2.0) EU/dL Ur Leukocyte Esterase NEGATIVE (NEGATIVE) Departure - Departure Time of Disposition: 14:27 Disposition: Home, Self-Care 01 Clinical Impression: Urinary retention - Discharge Information Prescriptions: Ciprofloxacin HCl [Cipro] 500 mg PO BID 3 Days #6 tablet Instructions: Indwelling Urinary Catheter Care, Adult, [id number], Acute Urinary Retention, Male, [id number] Referrals: Livan Gold MD [Primary Care Provider] - Forms: ED Department Discharge Additional Instructions: The following information is given to patients seen in the emergency department who are being discharged to home. This information is to outline your options for follow-up care. We provide all patients seen in our emergency department with a follow-up referral. The need for follow-up, as well as the timing and circumstances, are variable depending upon the specifics of your emergency department visit. If you don't have a primary care physician on staff, we will provide you with a referral. We always advise you to contact your personal physician following an emergency department visit to inform them of the circumstance of the visit and for follow-up with them and/or the need for any referrals to a consulting specialist. The emergency department will also refer you to a specialist when appropriate. This referral assures that you have the opportunity for follow-up care with a specialist. All of these measure are taken in an effort to provide you with optimal care, which includes your follow-up. Under all circumstances we always encourage you to contact your private physician who remains a resource for coordinating your care. When calling for follow-up care, please make the office aware that this follow-up is from your recent emergency room visit. If for any reason you are refused follow-up, please contact the [facility] Emergency Department at and asked to speak to the emergency department charge nurse. [facility] [address] [place] [id number] Barker wants you to take 2 tabs of your Flomax daily (2 tabs of Flomax 0.4mg) until Thursday. On Thursday, you may return to taking one dose daily. Keep the catheter in until Thursday. You may return on Thursday to have this removed if your uncomfortable doing this yourself. 2. Colace or MiraLAX as needed for your constipation concerns. 3. Take antbiotic as directed. Drink plenty of water. 4. Return to the ED as needed and as discussed. - My Orders Last 24 Hours: My Active Orders 08/11/18 13:00 Bladder Scan [RC] ASDIRECTED 08/11/18 13:48 Urinary Catheter Assessment [RC] ASDIRECTED 08/11/18 14:00 Frazier Catheter Insertion [Insert Urinary Catheter] [OM.PC] Q24H - Assessment/Plan Last 24 Hours: My Active Orders 08/11/18 13:00 Bladder Scan [RC] ASDIRECTED 08/11/18 13:48 Urinary Catheter Assessment [RC] ASDIRECTED 08/11/18 14:00 Frazier Catheter Insertion [Insert Urinary Catheter] [OM.PC] Q24H
--- NOTE | 2018-08-11 14:51 | CR ---
EXAMINATION: Abdomen HISTORY: Pain COMPARISON: CT dated 07/15/2017 TECHNIQUE: AP and upright views FINDINGS: There is no free air under the diaphragm. There is a nonobstructive bowel gas pattern. No abnormal calcifications project over the kidneys. Visualized osseous structures appear normal. Hernia repair clips project over the pelvis. IMPRESSION: 1. Nonobstructive bowel gas pattern without acute findings.
[2018-08-11 15:50] VITALS: BP 152/70
== END 2018-08-11 15:50 | disposition home or self-care (01) ==
LOC: MW.ED 12:34
DX: R33.9 Retention of urine, unspecified (principal); E03.9 Hypothyroidism, unspecified; E78.00 Pure hypercholesterolemia, unspecified; I10 Essential (primary) hypertension; Z87.438 Personal history of other diseases of male genital organs; Z88.0 Allergy status to penicillin; Z91.013 Allergy to seafood; Z88.7 Allergy status to serum and vaccine; Z79.899 Other long term (current) drug therapy
CPT/HCPCS: 74019; 74019-26; 81003; 99283; 99284-25

== ENCOUNTER 2019-08-26 06:57 | Emergency (ER) | payer MEDICARE, OTHER ==
[2019-08-26] MEDS ORDERED: Sodium Chloride 0.9% 2.5 ML Syringe FLUSH PRN (07:03)
[2019-08-26] MEDS ORDERED: Sodium Chloride 0.9% 10 ML Syringe FLUSH PRN ×2 (07:03)
[2019-08-26] MEDS ORDERED: Aspirin 325 MG Tab.EC PO ONE (07:17)
[2019-08-26] MEDS ORDERED: Aspirin 81 MG Tab.Chew PO ONE (07:23)
--- NOTE | 2019-08-26 07:25 | EDM.PDOC ---
ED HPI GENERAL MEDICAL PROBLEM - General Chief Complaint: Chest Pain Stated Complaint: CHEST PAIN AND SHORTNESS OF BREATH Time Seen by Provider: 08/26/19 07:02 Source of Information: Reports: Patient - History of Present Illness INITIAL COMMENTS - FREE TEXT/NARRATIVE: Patient is a 73-year-old male with a history of hypertension, hyperlipidemia, hypothyroidism, diabetes presenting with now 2 out of 10 substernal chest tightness with some radiation to the right arm woke him up from sleep at midnight tonight. At time of symptom onset the pain was 7 out of 10 it is subsequently improved to 2 out of 10. It is associated with her shortness of breath. He denies worsening with exertion he reports that it does feel worse when he lays back which also worsens the shortness of breath associated with this. He denies any lower extremity pain or swelling. He denies prior history of CHF or CAD he is a non-smoker. He reports that he is supposed to see "Dr. Snow " next Thursday this is for evaluation to see if he can be cleared to have an intervention done on his neck related to chronic arthritis and neck pain. He took some of his morning meds but cannot recall which ones. He denies taking aspirin or any other medicines for this pain. - Related Data Allergies Allergy/AdvReac Type Severity Reaction Status Date / Time Penicillins Allergy Swelling Verified 08/26/19 07:08 shellfish derived Allergy Airway Verified 08/26/19 07:08 Tightness tetanus immune globulin Allergy Cannot Verified 08/26/19 07:08 Remember Home Meds: Home Meds Levothyroxine [Synthroid] 100 mcg PO DAILY 12/04/13 [History] Metoprolol Succinate 25 mg PO DAILY 12/04/13 [History] Simvastatin 40 tab PO DAILY 12/04/13 [History] Tamsulosin HCl 0.4 mg PO DAILY 12/04/13 [History] Sennosides/Docusate Sodium [Stool Softener] 1 tab PO BID 08/01/14 [History] Gabapentin [Neurontin] 300 mg PO BID 03/11/16 [History] Isosorbide Mononitrate [Isosorbide Mononitrate ER] 30 mg PO DAILY 03/11/16 [ History] metFORMIN HCl [Metformin HCl] 500 mg PO DAILY 03/11/16 [History] Past Medical History HEENT History: Reports: Hard of Hearing Other HEENT History: wears glasses, has upper and lower dentures, has bilateral hearing aides Cardiovascular History: Reports: High Cholesterol, Hypertension Respiratory History: Reports: Sleep Apnea Other Respiratory History: does NOT use CPAP Gastrointestinal History: Reports: Colon Polyp Genitourinary History: Reports: Prostate Disorder Musculoskeletal History: Reports: Fracture Other Musculoskeletal History: fingers Neurological History: Reports: Neuropathy, Peripheral Psychiatric History: Reports: None Endocrine/Metabolic History: Reports: Hypothyroidism, Obesity/BMI 30+ Other Endocrine/Metabolic History: takes Metformin for diabetes Hematologic History: Reports: Blood Transfusion(s) Immunologic History: Reports: None Oncologic (Cancer) History: Reports: None Dermatologic History: Reports: None - Infectious Disease History Infectious Disease History: Reports: None - Past Surgical History Head Surgeries/Procedures: Reports: None GI Surgical History: Reports: Colonoscopy, Hernia, Abdominal Endocrine Surgical History: Reports: None Musculoskeletal Surgical History: Reports: None Oncologic Surgical History: Reports: None Dermatological Surgical History: Reports: None Social & Family History - Family History Family Medical History: Noncontributory - Tobacco Use Smoking Status *Q: Never Smoker - Caffeine Use Caffeine Use: Reports: None - Recreational Drug Use Recreational Drug Use: No ED ROS GENERAL - Review of Systems Review Of Systems: See Below Free Text/Narrative/Comment: General: No fever. Skin: No rash. Eyes: No vision problems. ENT: No sore throat. Neck: No neck stiffness. Respiratory: Per HPI Cardiac: Per HPI Gastrointestinal: No nausea, vomiting or abdominal pain. Urinary: No dysuria. Musculoskeletal: No myalgias/arthralgias. Neurologic: No headache. ED EXAM, GENERAL - Physical Exam Exam: See Below Free Text/Narrative:: General Appearance: No acute distress, appears comfortable Skin: No rash HEENT: Normocephalic/atraumatic, sclera anicteric, mucous membranes moist Neck: Normal range of motion Chest and Lungs: Bilateral breath sounds, clear to auscultation Cardiovascular: Regular rate and rhythm, no murmur Abdomen: Soft, non-tender, obese Back: Normal Musculoskeletal: No edema or tenderness Neurologic: Awake, alert, no obvious deficits, moving all extremities Psychiatric: Appropriate, cooperative EKG INTERPRETATION EKG Date: 08/26/19 Rhythm: NSR Rate (Beats/Min): 59 EKG Interpretation Comments: Normal axis with no acute ischemia QTC normal at 383 occasional PVC Course - Vital Signs Text/Narrative:: 73-year-old male with no prior cardiac history but multiple cardiac risk factors who is presenting with now spontaneously improving chest pain. Multiple etiologies were considered. ACS needs to be considered his EKG is without any signs of acute ischemia. That said 324 of aspirin was ordered after my initial assessment. The pain is not tearing it is not severe does not radiate to the back I do not have a clinical concern for aortic dissection. Patient is without risk factors for pulmonary embolism and the pain is not pleuritic. He is neither tachycardic nor hypoxic. I do not believe he requires further evaluation for this etiology. The pain does get worse when he lays backwards mild pericarditis could be a consideration. However he has no changes on his EKG that would suggest pericarditis. No GI symptoms that would suggest biliary hepatic or gastrointestinal cause. No cough or fever suggest infectious cause. His lungs are clear on exam no concern for bronchitis. Given lack of any infectious symptoms such as sore throat cough fever etc. I do not believe that this represents coronavirus infection. CBC, CMP, troponin as well as chest x-ray have been ordered to help evaluate for this. Pt's HEART score is 5. He had a normal nuclear stress in May 2018. Patient's initial blood work and chest x-ray is unremarkable. We discussed that I do recommend admission for observation and 3 cardiac enzymes and evaluation by internal medicine in order to exclude unstable angina. We discussed that undiagnosed heart disease can lead to permanent disability or . The patient is not willing to stay for an observation admission for 3- hour enzymes and further evaluation. However he was agreeable to a second cardiac enzyme to be drawn at the 2-hour harvey. This is pending. If this is normal patient will be discharged to follow-up with his pricing manager he already has a formal appointment scheduled in 5 days. Strict return precautions were discussed and understood. I explained to the patient that while the initial work-up in the ED is reassuring, I have not completely ruled out the heart as the cause of the pt's symptoms and because of this it is very important to return to the ED for any worsening pain or new symptoms and to follow up with either primary care doctor or specialist and the patient agreed. Last Recorded V/S: Last Vital Signs Temp 97.9 F 08/26/19 07:09 Pulse 53 L 08/26/19 08:28 Resp 17 08/26/19 08:28 BP 134/76 08/26/19 08:28 Pulse Ox 98 08/26/19 08:28 - Orders/Labs/Meds Orders: Active Orders 24 hr Category Date Time Status EKG Documentation Completion [RC] STAT Care 08/26/19 07:03 Active Sodium Chloride 0.9% [Saline Flush] Med 08/26/19 07:03 Active 10 ml FLUSH ASDIRECTED PRN Sodium Chloride 0.9% [Saline Flush] Med 08/26/19 07:03 Active 10 ml FLUSH ASDIRECTED PRN Sodium Chloride 0.9% [Saline Flush] Med 08/26/19 07:03 Active 2.5 ml FLUSH ASDIRECTED PRN Saline Lock Insert [OM.PC] Stat Oth 08/26/19 07:03 Ordered Medication Orders Sodium Chloride (Saline Flush) 10 ml FLUSH ASDIRECTED PRN PRN Reason: Keep Vein Open Last Admin: 08/26/19 07:33 Dose: 10 ml Sodium Chloride (Saline Flush) 10 ml FLUSH ASDIRECTED PRN PRN Reason: Keep Vein Open Last Admin: 08/26/19 07:33 Dose: 10 ml Sodium Chloride (Saline Flush) 2.5 ml FLUSH ASDIRECTED PRN PRN Reason: Keep Vein Open Last Admin: 08/26/19 07:33 Dose: 2.5 ml Labs: Laboratory Tests 08/26/19 08/26/19 08/26/19 Range/Units 07:01 07:01 07:01 WBC 6.56 (4.0-11.0) K/uL RBC 4.71 (4.50-5.90) M/uL Hgb 15.1 (13.0-17.0) g/dL Hct 44.8 (38.0-50.0) % MCV 95.1 (80.0-98.0) fL MCH 32.1 H (27.0-32.0) pg MCHC 33.7 (31.0-37.0) g/dL RDW Std Deviation 45.3 (28.0-62.0) fl RDW Coeff of [place] 13 (11.0-15.0) % Plt Count 209 (150-400) K/uL MPV 10.10 (7.40-12.00) fL Neut % (Auto) 51.7 (48.0-80.0) % Lymph % (Auto) 32.0 (16.0-40.0) % [place] % (Auto) 11.7 (0.0-15.0) % Eos % (Auto) 4.0 (0.0-7.0) % Baso % (Auto) 0.6 (0.0-1.5) % Neut # (Auto) 3.4 (1.4-5.7) K/uL Lymph # (Auto) 2.1 (0.6-2.4) K/uL [place] # (Auto) 0.8 (0.0-0.8) K/uL Eos # (Auto) 0.3 (0.0-0.7) K/uL Baso # (Auto) 0.0 (0.0-0.1) K/uL Nucleated RBC % 0.0 /100WBC Nucleated RBCs # 0 K/uL Sodium 137 (136-148) mmol/L Potassium 4.3 (3.5-5.1) mmol/L Chloride 103 (98-107) mmol/L Carbon Dioxide 26.4 (21.0-32.0) mmol/L BUN 19 H (7.0-18.0) mg/dL Creatinine 1.1 (0.8-1.3) mg/dL Est Cr Clr Drug Dosing 62.68 mL/min Estimated GFR (MDRD) > 60.0 ml/min Glucose 112 H (74-106) mg/dL Calcium 9.1 (8.5-10.1) mg/dL Total Bilirubin 0.4 (0.2-1.0) mg/dL AST 34 (15-37) IU/L ALT 54 (14-63) IU/L Alkaline Phosphatase 80 (46-116) U/L Troponin I < 0.050 (0.000-0.056) ng/mL B-Natriuretic Peptide 165 H (<100) PG/ML Total Protein 7.0 (6.4-8.2) g/dL Albumin 3.8 (3.4-5.0) g/dL Globulin 3.2 (2.6-4.0) g/dL Albumin/Globulin Ratio 1.2 (0.9-1.6) 08/26/19 Range/Units 09:04 WBC (4.0-11.0) K/uL RBC (4.50-5.90) M/uL Hgb (13.0-17.0) g/dL Hct (38.0-50.0) % MCV (80.0-98.0) fL MCH (27.0-32.0) pg MCHC (31.0-37.0) g/dL RDW Std Deviation (28.0-62.0) fl RDW Coeff of [place] (11.0-15.0) % Plt Count (150-400) K/uL MPV (7.40-12.00) fL Neut % (Auto) (48.0-80.0) % Lymph % (Auto) (16.0-40.0) % [place] % (Auto) (0.0-15.0) % Eos % (Auto) (0.0-7.0) % Baso % (Auto) (0.0-1.5) % Neut # (Auto) (1.4-5.7) K/uL Lymph # (Auto) (0.6-2.4) K/uL [place] # (Auto) (0.0-0.8) K/uL Eos # (Auto) (0.0-0.7) K/uL Baso # (Auto) (0.0-0.1) K/uL Nucleated RBC % /100WBC Nucleated RBCs # K/uL Sodium (136-148) mmol/L Potassium (3.5-5.1) mmol/L Chloride (98-107) mmol/L Carbon Dioxide (21.0-32.0) mmol/L BUN (7.0-18.0) mg/dL Creatinine (0.8-1.3) mg/dL Est Cr Clr Drug Dosing mL/min Estimated GFR (MDRD) ml/min Glucose (74-106) mg/dL Calcium (8.5-10.1) mg/dL Total Bilirubin (0.2-1.0) mg/dL AST (15-37) IU/L ALT (14-63) IU/L Alkaline Phosphatase (46-116) U/L Troponin I < 0.050 (0.000-0.056) ng/mL B-Natriuretic Peptide (<100) PG/ML Total Protein (6.4-8.2) g/dL Albumin (3.4-5.0) g/dL Globulin (2.6-4.0) g/dL Albumin/Globulin Ratio (0.9-1.6) Meds: Medications Generic Name Dose Route Start Last Admin Trade Name Freq PRN Reason Stop Dose Admin Sodium Chloride 10 ml 08/26/19 07:03 08/26/19 07:33 Saline Flush FLUSH 10 ml ASDIRECTED PRN Administration Keep Vein Open Sodium Chloride 10 ml 08/26/19 07:03 08/26/19 07:33 Saline Flush FLUSH 10 ml ASDIRECTED PRN Administration Keep Vein Open Sodium Chloride 2.5 ml 08/26/19 07:03 08/26/19 07:33 Saline Flush FLUSH 2.5 ml ASDIRECTED PRN Administration Keep Vein Open Discontinued Medications Generic Name Dose Route Start Last Admin Trade Name Freq PRN Reason Stop Dose Admin Aspirin 325 mg 08/26/19 09:00 Aspirin PO DAILY STACY Aspirin 324 mg 08/26/19 07:23 08/26/19 07:33 Aspirin PO 08/26/19 07:24 324 mg ONETIME ONE Administration - Re-Assessments/Exams Free Text/Narrative Re-Assessment/Exam: 08/26/19 09:39 Patient symptom-free at this time second troponin negative discharges noted in assessment. Departure - Departure Time of Disposition: 09:39 Disposition: Home, Self-Care 01 Condition: Good Clinical Impression: Chest pain at rest Instructions: Nonspecific Chest Pain, Adult, [id number] Referrals: Josefina Ratliff MD [Physician] - Forms: ED Department Discharge Additional Instructions: As we discussed it is very important that you follow-up with your pricing manager as scheduled. It is also very important that if you have any recurrence of severe chest pain or shortness of breath that you immediately seek medical attention. Though your evaluation today did not show evidence of a heart attack you could have coronary artery disease that is the cause of your symptoms and places you at significant risk for heart attack in the near future. The following information is given to patients seen in the emergency department who are being discharged to home. This information is to outline your options for follow-up care. We provide all patients seen in our emergency department with a follow-up referral. The need for follow-up, as well as the timing and circumstances, are variable depending upon the specifics of your emergency department visit. If you don't have a primary care physician on staff, we will provide you with a referral. We always advise you to contact your personal physician following an emergency department visit to inform them of the circumstance of the visit and for follow-up with them and/or the need for any referrals to a consulting specialist. The emergency department will also refer you to a specialist when appropriate. This referral assures that you have the opportunity for follow-up care with a specialist. All of these measure are taken in an effort to provide you with optimal care, which includes your follow-up. Under all circumstances we always encourage you to contact your private physician who remains a resource for coordinating your care. When calling for follow-up care, please make the office aware that this follow-up is from your recent emergency room visit. If for any reason you are refused follow-up, please contact the [facility] Emergency Department at and asked to speak to the emergency department charge nurse. Sepsis Event Note - Evaluation Sepsis Screening Result: No Definite Risk - Focused Exam Vital Signs: Vital Signs Temp Pulse Resp BP Pulse Ox 08/26/19 08:28 53 L 17 134/76 98 08/26/19 08:13 52 L 17 132/77 97 08/26/19 07:58 56 L 17 135/71 98 08/26/19 07:15 57 L 18 143/88 H 96 08/26/19 07:09 97.9 F 61 18 146/90 H 98 Date Exam was Performed: 08/26/19 Time Exam was Performed: 09:39 - My Orders Last 24 Hours: My Active Orders 08/26/19 07:03 EKG Documentation Completion [RC] STAT Sodium Chloride 0.9% [Saline Flush] 10 ml FLUSH ASDIRECTED PRN Sodium Chloride 0.9% [Saline Flush] 10 ml FLUSH ASDIRECTED PRN Sodium Chloride 0.9% [Saline Flush] 2.5 ml FLUSH ASDIRECTED PRN Saline Lock Insert [OM.PC] Stat - Assessment/Plan Last 24 Hours: My Active Orders 08/26/19 07:03 EKG Documentation Completion [RC] STAT Sodium Chloride 0.9% [Saline Flush] 10 ml FLUSH ASDIRECTED PRN Sodium Chloride 0.9% [Saline Flush] 10 ml FLUSH ASDIRECTED PRN Sodium Chloride 0.9% [Saline Flush] 2.5 ml FLUSH ASDIRECTED PRN Saline Lock Insert [OM.PC] Stat
[2019-08-26 07:35] LABS: BLOOD UREA NITROGEN,BUN 19 mg/dL (7.0-18.0); CARBON DIOXIDE,CO2 26.4 mmol/L (21.0-32.0); CHLORIDE,CL 103 mmol/L (98-107); GLUCOSE RANDOM 112 mg/dL (74-106); POTASSIUM,K 4.3 mmol/L (3.5-5.1); SODIUM,NA 137 mmol/L (136-148)
--- NOTE | 2019-08-26 08:12 | CR ---
Indication: Chest pain. Technique: Chest 2 views Comparison: 04/21/2018. Findings: Cardiomediastinal silhouette is unremarkable. No focal lung consolidation, pleural effusion or pneumothorax. Degenerative changes in the spine. Impression: No acute cardiopulmonary abnormality. Dictated by Johnny Anderson MD @ Aug 26 2019 8:08AM Signed by Dr. Johnny Anderson @ Aug 26 2019 8:11AM
[2019-08-26] MEDS ORDERED: Aspirin 325 MG Tab PO SCH (09:00)
[2019-08-26 09:50] VITALS: BP 134/63; PULSE 52
== END 2019-08-26 09:49 | disposition home or self-care (01) ==
LOC: MW.ED 06:57
DX: R07.89 Other chest pain (principal); E78.00 Pure hypercholesterolemia, unspecified; I10 Essential (primary) hypertension; G62.9 Polyneuropathy, unspecified; E03.9 Hypothyroidism, unspecified; E66.9 Obesity, unspecified; Z68.33 Body mass index [BMI] 33.0-33.9, adult; Z88.0 Allergy status to penicillin; Z91.013 Allergy to seafood; Z91.09 Other allergy status, other than to drugs and biological substances
CPT/HCPCS: 36415; 71046; 80053; 83880; 84484; 85025; 93005; 99285; A9270

== ENCOUNTER 2019-10-02 05:19 | Inpatient (IN) | payer MEDICARE, OTHER ==
[2019-10-02] MEDS ORDERED: Aspirin 81 MG Tab.Chew PO ONE (05:46)
[2019-10-02] MEDS ORDERED: Sodium Chloride 0.9% 10 ML Syringe FLUSH PRN (05:46)
[2019-10-02] MEDS ORDERED: Sodium Chloride 0.9% 2.5 ML Syringe FLUSH PRN ×2 (05:46→07:54)
--- NOTE | 2019-10-02 05:53 | EDM.PDOC ---
ED HPI GENERAL MEDICAL PROBLEM - General Chief Complaint: Respiratory Problem Stated Complaint: SHORT OF BREATH Time Seen by Provider: 10/02/19 05:38 - History of Present Illness INITIAL COMMENTS - FREE TEXT/NARRATIVE: History of present illness: [] Patient presents with shortness of breath. He describes shortness of breath with exertion and pain going into his left arm he denies any fever he has had some chills he had a coughing spell last night he denies any leg pain or leg swelling he is not had any chest pain nothing seems to make it better exertion makes it worse. Review of systems: As per history of present illness and below otherwise all systems reviewed and negative. Past medical history: As per history of present illness and as reviewed below otherwise noncontributory. Surgical history: As per history of present illness and as reviewed below otherwise noncontributory. Social history: No reported history of drug or alcohol abuse. Family history: As per history of present illness and as reviewed below otherwise noncontributory. Physical exam: HEENT: Atraumatic, normocephalic, pupils reactive, negative for conjunctival pallor or scleral icterus, mucous membranes moist, throat clear, neck supple, nontender, trachea midline. Lungs: Clear to auscultation, breath sounds equal bilaterally, chest nontender. Heart: S1S2, regular, negative for clicks, rubs, or JVD. Abdomen: Soft, nondistended, nontender. Negative for masses or hepatosplenomegaly. Negative for costovertebral tenderness. Pelvis: Stable nontender. Genitourinary: Deferred. Rectal: Deferred. Extremities: Atraumatic, negative for cords or calf pain. Neurovascular unremarkable. Neuro: Awake, alert, oriented. Cranial nerves II through XII unremarkable. Cerebellum unremarkable. Motor and sensory unremarkable throughout. Exam nonfocal. Diagnostics: [] Therapeutics: [] Impression: Dyspnea on exertion [] Plan: React work-up will be ordered and patient will be reassessed. [] Definitive disposition and diagnosis as appropriate pending reevaluation and review of above. Right Arm Pain Score (Numeric/FACES): 3 - Related Data Allergies Allergy/AdvReac Type Severity Reaction Status Date / Time Penicillins Allergy Swelling Verified 10/02/19 05:30 shellfish derived Allergy Airway Verified 10/02/19 05:30 Tightness tetanus immune globulin Allergy Cannot Verified 10/02/19 05:30 Remember Home Meds: Home Meds Levothyroxine [Synthroid] 100 mcg PO DAILY 12/04/13 [History] Metoprolol Succinate 25 mg PO DAILY 12/04/13 [History] Simvastatin 40 tab PO DAILY 12/04/13 [History] Tamsulosin HCl 0.4 mg PO DAILY 12/04/13 [History] Sennosides/Docusate Sodium [Stool Softener] 1 tab PO BID 08/01/14 [History] Gabapentin [Neurontin] 300 mg PO BID 03/11/16 [History] Isosorbide Mononitrate [Isosorbide Mononitrate ER] 30 mg PO DAILY 03/11/16 [ History] metFORMIN HCl [Metformin HCl] 500 mg PO DAILY 03/11/16 [History] Finasteride 5 mg PO DAILY 10/02/19 [History] Past Medical History HEENT History: Reports: Hard of Hearing Other HEENT History: wears glasses, has upper and lower dentures, has bilateral hearing aides Cardiovascular History: Reports: High Cholesterol, Hypertension Respiratory History: Reports: Sleep Apnea Other Respiratory History: does NOT use CPAP Gastrointestinal History: Reports: Colon Polyp Genitourinary History: Reports: Prostate Disorder Musculoskeletal History: Reports: Fracture Other Musculoskeletal History: fingers Neurological History: Reports: Neuropathy, Peripheral Psychiatric History: Reports: None Endocrine/Metabolic History: Reports: Hypothyroidism, Obesity/BMI 30+ Other Endocrine/Metabolic History: takes Metformin for diabetes Hematologic History: Reports: Blood Transfusion(s) Immunologic History: Reports: None Oncologic (Cancer) History: Reports: None Dermatologic History: Reports: None - Infectious Disease History Infectious Disease History: Reports: None - Past Surgical History Head Surgeries/Procedures: Reports: None GI Surgical History: Reports: Colonoscopy, Hernia, Abdominal Endocrine Surgical History: Reports: None Musculoskeletal Surgical History: Reports: None Oncologic Surgical History: Reports: None Dermatological Surgical History: Reports: None Social & Family History - Family History Family Medical History: Noncontributory - Tobacco Use Smoking Status *Q: Former Smoker Used Tobacco, but Quit: Yes Month/Year Tobacco Last Used: 1982 - Caffeine Use Caffeine Use: Reports: None - Recreational Drug Use Recreational Drug Use: No ED ROS GENERAL - Review of Systems Review Of Systems: See Below ED EXAM, GENERAL - Physical Exam Exam: See Below EKG INTERPRETATION EKG Interpretation Comments: EKG is a normal sinus rhythm rate of 65 bpm no ischemic changes normal axis read interpreted by me Course - Vital Signs Text/Narrative:: One-view portable chest read interpreted by me there is a right middle and lower lobe pneumonia present At 6:45 AM I discussed the case with Dr. Nava and she will admit the patient Last Recorded V/S: Last Vital Signs Temp 37.9 C 10/02/19 06:33 Pulse 81 10/02/19 06:33 Resp 24 H 10/02/19 06:33 BP 122/57 L 10/02/19 06:33 Pulse Ox 95 10/02/19 06:33 - Orders/Labs/Meds Orders: Active Orders 24 hr Category Date Time Status Chest 1V Frontal [CR] Stat Exams 10/02/19 05:46 Taken B-TYPE NATRIURETIC PEPTIDE,BNP [CHEM] Stat Lab 10/02/19 05:31 Received CORONAVIRUS COVID-19 PCR PHL Stat Lab 10/02/19 06:40 Ordered CULTURE BLOOD [BC] Stat Lab 10/02/19 06:38 Ordered CULTURE BLOOD [BC] Stat Lab 10/02/19 06:38 Ordered LACTIC ACID,WHOLE BLOOD [BG] Stat Lab 10/02/19 06:38 Ordered Azithromycin [Zithromax] 500 mg Med 10/02/19 06:45 Active Sodium Chloride 0.9% [Normal Saline (AdvBag)] 250 ml IV ONETIME Sodium Chloride 0.9% [Normal Saline] 1,000 ml Med 10/02/19 06:39 Active IV .Bolus Sodium Chloride 0.9% [Saline Flush] Med 10/02/19 05:46 Active 10 ml FLUSH ASDIRECTED PRN Sodium Chloride 0.9% [Saline Flush] Med 10/02/19 05:46 Active 2.5 ml FLUSH ASDIRECTED PRN cefTRIAXone [Rocephin in Dextrose,Iso-Osm 1 GM/50 ML] 1 Med 10/02/19 06:36 Active gm Premix Bag 1 bag IV ONETIME Blood Culture x2 Reflex Set [OM.PC] Stat Oth 10/02/19 06:38 Ordered Saline Lock Insert [OM.PC] Stat Oth 10/02/19 05:46 Ordered Medication Orders Azithromycin 500 mg/ Sodium (Chloride) 250 mls @ 250 mls/hr IV ONETIME STACY Ceftriaxone Sodium/Dextrose 1 (gm/ Premix) 50 mls @ 100 mls/hr IV ONETIME ONE Stop: 10/02/19 07:05 Sodium Chloride (Normal Saline) 1,000 mls @ 999 mls/hr IV .Bolus ONE Stop: 10/02/19 07:39 Sodium Chloride (Saline Flush) 10 ml FLUSH ASDIRECTED PRN PRN Reason: Keep Vein Open Last Admin: 10/02/19 06:05 Dose: 10 ml Sodium Chloride (Saline Flush) 2.5 ml FLUSH ASDIRECTED PRN PRN Reason: Keep Vein Open Last Admin: 10/02/19 06:05 Dose: 2.5 ml Labs: Laboratory Tests 10/02/19 10/02/19 Range/Units 05:31 05:31 WBC 10.38 (4.0-11.0) K/uL RBC 4.37 L (4.50-5.90) M/uL Hgb 14.1 (13.0-17.0) g/dL Hct 42.4 (38.0-50.0) % MCV 97.0 (80.0-98.0) fL MCH 32.3 H (27.0-32.0) pg MCHC 33.3 (31.0-37.0) g/dL RDW Std Deviation 47.1 (28.0-62.0) fl RDW Coeff of [place] 13 (11.0-15.0) % Plt Count 202 (150-400) K/uL MPV 10.00 (7.40-12.00) fL Neut % (Auto) 73.3 (48.0-80.0) % Lymph % (Auto) 18.3 (16.0-40.0) % Perry % (Auto) 5.3 (0.0-15.0) % Eos % (Auto) 2.7 (0.0-7.0) % Baso % (Auto) 0.4 (0.0-1.5) % Neut # (Auto) 7.6 H (1.4-5.7) K/uL Lymph # (Auto) 1.9 (0.6-2.4) K/uL Perry # (Auto) 0.6 (0.0-0.8) K/uL Eos # (Auto) 0.3 (0.0-0.7) K/uL Baso # (Auto) 0.0 (0.0-0.1) K/uL Nucleated RBC % 0.0 /100WBC Nucleated RBCs # 0 K/uL Sodium 141 (136-148) mmol/L Potassium 4.3 (3.5-5.1) mmol/L Chloride 104 (98-107) mmol/L Carbon Dioxide 29.4 (21.0-32.0) mmol/L BUN 18 (7.0-18.0) mg/dL Creatinine 1.0 (0.8-1.3) mg/dL Est Cr Clr Drug Dosing 68.94 mL/min Estimated GFR (MDRD) > 60.0 ml/min Glucose 103 (74-106) mg/dL Calcium 8.6 (8.5-10.1) mg/dL Total Bilirubin 0.2 (0.2-1.0) mg/dL AST 28 (15-37) IU/L ALT 49 (14-63) IU/L Alkaline Phosphatase 97 (46-116) U/L Troponin I < 0.050 (0.000-0.056) ng/mL Total Protein 6.9 (6.4-8.2) g/dL Albumin 3.5 (3.4-5.0) g/dL Globulin 3.4 (2.6-4.0) g/dL Albumin/Globulin Ratio 1.0 (0.9-1.6) Meds: Medications Generic Name Dose Route Start Last Admin Trade Name Freq PRN Reason Stop Dose Admin Azithromycin 500 mg/ Sodium 250 mls @ 250 mls/hr 10/02/19 06:45 Chloride IV ONETIME STACY Ceftriaxone Sodium/Dextrose 1 50 mls @ 100 mls/hr 10/02/19 06:36 gm/ Premix IV 10/02/19 07:05 ONETIME ONE Sodium Chloride 1,000 mls @ 999 mls/hr 10/02/19 06:39 Normal Saline IV 10/02/19 07:39 .Bolus ONE Sodium Chloride 10 ml 10/02/19 05:46 10/02/19 06:05 Saline Flush FLUSH 10 ml ASDIRECTED PRN Administration Keep Vein Open Sodium Chloride 2.5 ml 10/02/19 05:46 10/02/19 06:05 Saline Flush FLUSH 2.5 ml ASDIRECTED PRN Administration Keep Vein Open Discontinued Medications Generic Name Dose Route Start Last Admin Trade Name Freq PRN Reason Stop Dose Admin Aspirin 324 mg 10/02/19 05:46 10/02/19 06:00 Aspirin PO 10/02/19 05:47 324 mg ONETIME ONE Administration Departure - Departure Time of Disposition: 06:50 Disposition: Admitted As Inpatient 67 Condition: Good Clinical Impression: Pneumonia Qualifiers: Laterality: right Lung location: middle lobe of lung - Discharge Information *PRESCRIPTION DRUG MONITORING PROGRAM REVIEWED*: Not Applicable *COPY OF PRESCRIPTION DRUG MONITORING REPORT IN PATIENT RICHELLE: Not Applicable Forms: ED Department Discharge Sepsis Event Note - Evaluation Sepsis Screening Result: No Definite Risk - Focused Exam Vital Signs: Vital Signs Temp Temp Pulse Resp BP Pulse Ox 10/02/19 06:33 37.9 C 81 24 H 122/57 L 95 10/02/19 06:05 36.8 C 71 24 H 140/54 L 95 10/02/19 05:26 36.6 C 64 22 H 162/79 H 94 L Date Exam was Performed: 10/02/19 Time Exam was Performed: 06:45 - My Orders Last 24 Hours: My Active Orders 10/02/19 05:31 B-TYPE NATRIURETIC PEPTIDE,BNP [CHEM] Stat 10/02/19 05:46 Chest 1V Frontal [CR] Stat Sodium Chloride 0.9% [Saline Flush] 10 ml FLUSH ASDIRECTED PRN Sodium Chloride 0.9% [Saline Flush] 2.5 ml FLUSH ASDIRECTED PRN Saline Lock Insert [OM.PC] Stat 10/02/19 06:36 cefTRIAXone [Rocephin in Dextrose,Iso-Osm 1 GM/50 ML] 1 gm Premix Bag 1 bag IV ONETIME 10/02/19 06:38 CULTURE BLOOD [BC] Stat CULTURE BLOOD [BC] Stat LACTIC ACID,WHOLE BLOOD [BG] Stat Blood Culture x2 Reflex Set [OM.PC] Stat 10/02/19 06:39 Sodium Chloride 0.9% [Normal Saline] 1,000 ml IV .Bolus 10/02/19 06:40 CORONAVIRUS COVID-19 PCR PHL Stat 10/02/19 06:45 Azithromycin [Zithromax] 500 mg Sodium Chloride 0.9% [Normal Saline (AdvBag)] 250 ml IV ONETIME - Assessment/Plan Last 24 Hours: My Active Orders 10/02/19 05:31 B-TYPE NATRIURETIC PEPTIDE,BNP [CHEM] Stat 10/02/19 05:46 Chest 1V Frontal [CR] Stat Sodium Chloride 0.9% [Saline Flush] 10 ml FLUSH ASDIRECTED PRN Sodium Chloride 0.9% [Saline Flush] 2.5 ml FLUSH ASDIRECTED PRN Saline Lock Insert [OM.PC] Stat 10/02/19 06:36 cefTRIAXone [Rocephin in Dextrose,Iso-Osm 1 GM/50 ML] 1 gm Premix Bag 1 bag IV ONETIME 10/02/19 06:38 CULTURE BLOOD [BC] Stat CULTURE BLOOD [BC] Stat LACTIC ACID,WHOLE BLOOD [BG] Stat Blood Culture x2 Reflex Set [OM.PC] Stat 10/02/19 06:39 Sodium Chloride 0.9% [Normal Saline] 1,000 ml IV .Bolus 10/02/19 06:40 CORONAVIRUS COVID-19 PCR PHL Stat 10/02/19 06:45 Azithromycin [Zithromax] 500 mg Sodium Chloride 0.9% [Normal Saline (AdvBag)] 250 ml IV ONETIME
[2019-10-02 06:36] LABS: BLOOD UREA NITROGEN,BUN 18 mg/dL (7.0-18.0); CARBON DIOXIDE,CO2 29.4 mmol/L (21.0-32.0); CHLORIDE,CL 104 mmol/L (98-107); GLUCOSE RANDOM 103 mg/dL (74-106); POTASSIUM,K 4.3 mmol/L (3.5-5.1); SODIUM,NA 141 mmol/L (136-148)
[2019-10-02] MEDS ORDERED: cefTRIAXone 1 GM in Premix Bag 1 BAG IV ONE (06:36)
[2019-10-02] MEDS ORDERED: Sodium Chloride 0.9% 1,000 ML IV ONE (06:39)
[2019-10-02] MEDS ORDERED: Azithromycin 500 MG in Sodium Chloride 0.9% 250 ML IV SCH (06:45)
--- NOTE | 2019-10-02 06:54 | CR ---
INDICATION: Shortness of breath TECHNIQUE: Chest 1 views COMPARISON: Chest x-ray 08/26/2019 FINDINGS: Cardiovascular and mediastinum: Upper normal heart size. Lungs and pleural spaces: Hazy opacities right mid lung. No pneumothorax or pleural effusion. Bones and soft tissues: No significant findings. IMPRESSION: Hazy opacities in the right mid lung suspicious for pneumonia. Dictated by Fantasma Leo MD @ Oct 02 2019 6:52AM Signed by Dr. Fantasma Leo @ Oct 02 2019 6:54AM
[2019-10-02] MEDS ORDERED: Albuterol/Ipratropium 3.0-0.5 MG/3 ML Neb Soln NEB PRN (07:56)
[2019-10-02] MEDS ORDERED: Lactated Ringers 1,000 ML IV SCH (08:00)
[2019-10-02] MEDS: Insulin Aspart 100 Units/ML 3 ML Pen SUBCUT SCH ×3 (08:29→18:50)
[2019-10-02] MEDS ORDERED: Azithromycin 500 MG in Sodium Chloride 0.9% 250 ML IV ONE (08:30)
--- NOTE | 2019-10-02 11:28 | PCM.HP.2 ---
H&P History of Present Illness - General Date of Service: 10/02/19 Admit Problem/Dx: Admission Diagnosis/Problem Admission Diagnosis/Problem Pneumonia - History of Present Illness Initial Comments - Free Text/Narative: Patient is a 73 y/o M with PMH of HTN, HLD, DM, Hypothyroidism, smoking history , sleep apnea, obesity who presents with shortness of breath with exertion and chest pain with deep breaths. Patient denies any fever but endorses coughing and chills last night. Patient states that he has had pneumonia several times in last few years although he takes his flu shot and pneumonia shot yearly. He states he is scheduled fo ra sleep study in next few weeks. Patient denied any syncope, palpitations, LOC, neurological deficits, leg pain, fever, diaphoresis , urinary symptoms. In the ER most of his lab work was unremarkable, his CXR was significant for right middle lobe opacities significant for pneumonia. Patient was slightly hypoxic on RA sating 94%, started on o2. Patient was started on IV antibiotics and admitted for further management. Right Arm Pain Score (Numeric/FACES): 3 - Related Data Allergies/Adverse Reactions: Allergies Allergy/AdvReac Type Severity Reaction Status Date / Time Penicillins Allergy Swelling Verified 10/02/19 08:03 shellfish derived Allergy Airway Verified 10/02/19 08:03 Tightness tetanus immune globulin Allergy Cannot Verified 10/02/19 08:03 Remember Home Medications: Home Meds Levothyroxine [Synthroid] 100 mcg PO DAILY 12/04/13 [History] Metoprolol Succinate 25 mg PO DAILY 12/04/13 [History] Simvastatin 20 tab PO DAILY 12/04/13 [History] Tamsulosin HCl 0.4 mg PO DAILY 12/04/13 [History] Sennosides/Docusate Sodium [Stool Softener] 1 tab PO BID 08/01/14 [History] Gabapentin [Neurontin] 300 mg PO BID 03/11/16 [History] Isosorbide Mononitrate [Isosorbide Mononitrate ER] 30 mg PO DAILY 03/11/16 [ History] Finasteride 5 mg PO DAILY 10/02/19 [History] Furosemide 40 mg PO DAILY 10/02/19 [History] Nitroglycerin 0.4 mg SL .Q5MIN PRN MDD 3 TABLETS 10/03/19 [History] levoFLOXacin [Levaquin] 750 mg PO DAILY 4 Days #4 tablet 10/03/19 [Rx] metFORMIN HCl [Metformin HCl ER] 500 mg PO DAILY 10/03/19 [History] Past Medical History HEENT History: Reports: Hard of Hearing Other HEENT History: wears glasses, has upper and lower dentures, has bilateral hearing aides Cardiovascular History: Reports: High Cholesterol, Hypertension Respiratory History: Reports: Sleep Apnea Other Respiratory History: does NOT use CPAP Gastrointestinal History: Reports: Colon Polyp Genitourinary History: Reports: Prostate Disorder Musculoskeletal History: Reports: Fracture Other Musculoskeletal History: fingers Neurological History: Reports: Neuropathy, Peripheral Psychiatric History: Reports: None Endocrine/Metabolic History: Reports: Hypothyroidism, Obesity/BMI 30+ Other Endocrine/Metabolic History: takes Metformin for diabetes Hematologic History: Reports: Blood Transfusion(s) Immunologic History: Reports: None Oncologic (Cancer) History: Reports: None Dermatologic History: Reports: None - Infectious Disease History Infectious Disease History: Reports: None - Past Surgical History Head Surgeries/Procedures: Reports: None GI Surgical History: Reports: Colonoscopy, Hernia, Abdominal Endocrine Surgical History: Reports: None Musculoskeletal Surgical History: Reports: None Other Musculoskeletal Surgeries/Procedures:: Dislocated left fingers Oncologic Surgical History: Reports: None Dermatological Surgical History: Reports: None Social & Family History - Family History Family Medical History: Noncontributory - Tobacco Use Smoking Status *Q: Former Smoker Years of Tobacco use: 20 Used Tobacco, but Quit: Yes Month/Year Tobacco Last Used: 1994 Tobacco Use Comment: Quit smoking 25 years ago Second Hand Smoke Exposure: No - Caffeine Use Caffeine Use: Reports: Coffee, Energy Drinks, Soda, Tea - Recreational Drug Use Recreational Drug Use: No H&P Review of Systems - Review of Systems: Review Of Systems: See Below General: Reports: Chills, Fatigue, Decreased Appetite. Denies: Fever, Night Sweats, Diaphoresis HEENT: Denies: Dysphasia, Ear Pain, Eye Pain Pulmonary: Reports: Shortness of Breath, Cough, Sputum. Denies: Wheezing, Pleuritic Chest Pain, Hemoptysis Cardiovascular: Reports: Chest Pain. Denies: Palpitations, Dyspnea on Exertion , Orthopnea Gastrointestinal: Denies: Abdominal Pain, Anorexia, Black Stool, Bloody Stool Genitourinary: Denies: Dysuria, Frequency, Burning Musculoskeletal: Reports: Neck Pain. Denies: Shoulder Pain, Arm Pain Skin: Denies: Cyanosis, Jaundice, Mottled Exam - Exam Exam: See Below - Vital Signs Vital Signs: Last Vital Signs Temp 37 C 10/02/19 08:00 Pulse 71 10/02/19 08:00 Resp 19 10/02/19 08:00 BP 130/62 10/02/19 08:00 Pulse Ox 96 10/02/19 08:00 Weight: 108.454 kg - Exam Quality Assessment: Supplemental Oxygen General: Alert, Oriented HEENT: Conjunctiva Clear Neck: Supple, Trachea Midline Lungs: Decreased Breath Sounds Cardiovascular: Regular Rate, Regular Rhythm, Normal S1, Normal S2 GI/Abdominal Exam: Normal Bowel Sounds, Soft, Non-Tender - Patient Data Lab Results Last 24 hrs: Laboratory Results - last 24 hr 10/02/19 10/02/19 10/02/19 Range/Units 05:31 05:31 05:31 WBC 10.38 (4.0-11.0) K/uL RBC 4.37 L (4.50-5.90) M/uL Hgb 14.1 (13.0-17.0) g/dL Hct 42.4 (38.0-50.0) % MCV 97.0 (80.0-98.0) fL MCH 32.3 H (27.0-32.0) pg MCHC 33.3 (31.0-37.0) g/dL RDW Std Deviation 47.1 (28.0-62.0) fl RDW Coeff of [place] 13 (11.0-15.0) % Plt Count 202 (150-400) K/uL MPV 10.00 (7.40-12.00) fL Neut % (Auto) 73.3 (48.0-80.0) % Lymph % (Auto) 18.3 (16.0-40.0) % [place] % (Auto) 5.3 (0.0-15.0) % Eos % (Auto) 2.7 (0.0-7.0) % Baso % (Auto) 0.4 (0.0-1.5) % Neut # (Auto) 7.6 H (1.4-5.7) K/uL Lymph # (Auto) 1.9 (0.6-2.4) K/uL [place] # (Auto) 0.6 (0.0-0.8) K/uL Eos # (Auto) 0.3 (0.0-0.7) K/uL Baso # (Auto) 0.0 (0.0-0.1) K/uL Nucleated RBC % 0.0 /100WBC Nucleated RBCs # 0 K/uL Lactate (0.20-2.00) mmol/L Sodium 141 (136-148) mmol/L Potassium 4.3 (3.5-5.1) mmol/L Chloride 104 (98-107) mmol/L Carbon Dioxide 29.4 (21.0-32.0) mmol/L BUN 18 (7.0-18.0) mg/dL Creatinine 1.0 (0.8-1.3) mg/dL Est Cr Clr Drug Dosing 68.94 mL/min Estimated GFR (MDRD) > 60.0 ml/min Glucose 103 (74-106) mg/dL POC Glucose (60-110) mg/dL Calcium 8.6 (8.5-10.1) mg/dL Total Bilirubin 0.2 (0.2-1.0) mg/dL AST 28 (15-37) IU/L ALT 49 (14-63) IU/L Alkaline Phosphatase 97 (46-116) U/L Troponin I < 0.050 (0.000-0.056) ng/mL B-Natriuretic Peptide 230 H (<100) PG/ML Total Protein 6.9 (6.4-8.2) g/dL Albumin 3.5 (3.4-5.0) g/dL Globulin 3.4 (2.6-4.0) g/dL Albumin/Globulin Ratio 1.0 (0.9-1.6) SARS-CoV-2 RNA (RT-PCR) (NEGATIVE) 10/02/19 10/02/19 10/02/19 Range/Units 06:45 07:00 08:10 WBC (4.0-11.0) K/uL RBC (4.50-5.90) M/uL Hgb (13.0-17.0) g/dL Hct (38.0-50.0) % MCV (80.0-98.0) fL MCH (27.0-32.0) pg MCHC (31.0-37.0) g/dL RDW Std Deviation (28.0-62.0) fl RDW Coeff of [place] (11.0-15.0) % Plt Count (150-400) K/uL MPV (7.40-12.00) fL Neut % (Auto) (48.0-80.0) % Lymph % (Auto) (16.0-40.0) % [place] % (Auto) (0.0-15.0) % Eos % (Auto) (0.0-7.0) % Baso % (Auto) (0.0-1.5) % Neut # (Auto) (1.4-5.7) K/uL Lymph # (Auto) (0.6-2.4) K/uL [place] # (Auto) (0.0-0.8) K/uL Eos # (Auto) (0.0-0.7) K/uL Baso # (Auto) (0.0-0.1) K/uL Nucleated RBC % /100WBC Nucleated RBCs # K/uL Lactate 1.4 (0.20-2.00) mmol/L Sodium (136-148) mmol/L Potassium (3.5-5.1) mmol/L Chloride (98-107) mmol/L Carbon Dioxide (21.0-32.0) mmol/L BUN (7.0-18.0) mg/dL Creatinine (0.8-1.3) mg/dL Est Cr Clr Drug Dosing mL/min Estimated GFR (MDRD) ml/min Glucose (74-106) mg/dL POC Glucose 120 H (60-110) mg/dL Calcium (8.5-10.1) mg/dL Total Bilirubin (0.2-1.0) mg/dL AST (15-37) IU/L ALT (14-63) IU/L Alkaline Phosphatase (46-116) U/L Troponin I (0.000-0.056) ng/mL B-Natriuretic Peptide (<100) PG/ML Total Protein (6.4-8.2) g/dL Albumin (3.4-5.0) g/dL Globulin (2.6-4.0) g/dL Albumin/Globulin Ratio (0.9-1.6) SARS-CoV-2 RNA (RT-PCR) NEGATIVE (NEGATIVE) 10/02/19 Range/Units 11:03 WBC (4.0-11.0) K/uL RBC (4.50-5.90) M/uL Hgb (13.0-17.0) g/dL Hct (38.0-50.0) % MCV (80.0-98.0) fL MCH (27.0-32.0) pg MCHC (31.0-37.0) g/dL RDW Std Deviation (28.0-62.0) fl RDW Coeff of [place] (11.0-15.0) % Plt Count (150-400) K/uL MPV (7.40-12.00) fL Neut % (Auto) (48.0-80.0) % Lymph % (Auto) (16.0-40.0) % [place] % (Auto) (0.0-15.0) % Eos % (Auto) (0.0-7.0) % Baso % (Auto) (0.0-1.5) % Neut # (Auto) (1.4-5.7) K/uL Lymph # (Auto) (0.6-2.4) K/uL [place] # (Auto) (0.0-0.8) K/uL Eos # (Auto) (0.0-0.7) K/uL Baso # (Auto) (0.0-0.1) K/uL Nucleated RBC % /100WBC Nucleated RBCs # K/uL Lactate (0.20-2.00) mmol/L Sodium (136-148) mmol/L Potassium (3.5-5.1) mmol/L Chloride (98-107) mmol/L Carbon Dioxide (21.0-32.0) mmol/L BUN (7.0-18.0) mg/dL Creatinine (0.8-1.3) mg/dL Est Cr Clr Drug Dosing mL/min Estimated GFR (MDRD) ml/min Glucose (74-106) mg/dL POC Glucose 111 H (60-110) mg/dL Calcium (8.5-10.1) mg/dL Total Bilirubin (0.2-1.0) mg/dL AST (15-37) IU/L ALT (14-63) IU/L Alkaline Phosphatase (46-116) U/L Troponin I (0.000-0.056) ng/mL B-Natriuretic Peptide (<100) PG/ML Total Protein (6.4-8.2) g/dL Albumin (3.4-5.0) g/dL Globulin (2.6-4.0) g/dL Albumin/Globulin Ratio (0.9-1.6) SARS-CoV-2 RNA (RT-PCR) (NEGATIVE) Result Diagrams: 10/03/19 06:00 10/02/19 05:31 Sepsis Event Note - Evaluation Sepsis Screening Result: No Definite Risk - Focused Exam Vital Signs: Vital Signs Temp Temp Pulse Resp BP Pulse Ox 10/02/19 08:00 37 C 71 19 130/62 96 10/02/19 07:37 71 19 127/41 L 96 10/02/19 06:33 37.9 C 81 24 H 122/57 L 95 10/02/19 06:05 36.8 C 71 24 H 140/54 L 95 10/02/19 05:26 36.6 C 64 22 H 162/79 H 94 L Date Exam was Performed: 10/03/19 Time Exam was Performed: 23:46 - Problem List (1) HTN (hypertension) SNOMED Code(s): 78057786 ICD Code: I10 - ESSENTIAL (PRIMARY) HYPERTENSION Status: Acute (2) HLD (hyperlipidemia) SNOMED Code(s): 88122067 ICD Code: E78.5 - HYPERLIPIDEMIA, UNSPECIFIED Status: Acute (3) Diabetes SNOMED Code(s): 91306606 ICD Code: E11.9 - TYPE 2 DIABETES MELLITUS WITHOUT COMPLICATIONS Status: Acute (4) Hypothyroid SNOMED Code(s): 60217107 ICD Code: E03.9 - HYPOTHYROIDISM, UNSPECIFIED Status: Acute (5) Pneumonia SNOMED Code(s): 978431240 ICD Code: J18.9 - PNEUMONIA, UNSPECIFIED ORGANISM Status: Acute Qualifiers: Laterality: right Lung location: middle lobe of lung Problem List Initiated/Reviewed/Updated: Yes Orders Last 24hrs: Active Orders 24 hr Category Date Time Status Admission Status [Patient Status] [ADT] Stat ADT 10/02/19 06:47 Active Blood Glucose Check, Bedside [RC] TIDMEALS Care 10/02/19 07:00 Active Intake and Output [RC] Q12H Care 10/02/19 16:00 Active Oxygen Therapy [RC] ASDIRECTED Care 10/02/19 07:56 Active RT Aerosol Therapy [RC] ASDIRECTED Care 10/02/19 07:57 Active Telemetry Monitoring [Cardiac Monitoring] [RC] Q8H Care 10/02/19 07:43 Active Vital Signs [RC] Q4H Care 10/02/19 08:00 Active [place] Diet [DIET] Diet 10/02/19 Breakfast Active CULTURE BLOOD [BC] Stat Lab 10/02/19 06:50 Received CULTURE BLOOD [BC] Stat Lab 10/02/19 07:00 Received Albuterol/Ipratropium [DuoNeb 3.0-0.5 MG/3 ML] Med 10/02/19 07:56 Active 3 ml NEB Q4HRRT PRN Azithromycin [Zithromax] 500 mg Med 10/03/19 09:00 Active Sodium Chloride 0.9% [Normal Saline (AdvBag)] 250 ml IV DAILY Insulin Aspart [NovoLOG] Med 10/02/19 07:59 Active See Protocol SUBCUT TIDAC Lactated Ringers [Ringers, Lactated] 1,000 ml Med 10/02/19 08:00 Active IV ASDIRECTED Sodium Chloride 0.9% [Saline Flush] Med 10/02/19 07:54 Active 2.5 ml FLUSH ASDIRECTED PRN cefTRIAXone [Rocephin in Dextrose,Iso-Osm 1 GM/50 ML] 1 Med 10/03/19 09:30 Active gm Premix Bag 1 bag IV Q24H Blood Culture x2 Reflex Set [OM.PC] Stat Oth 10/02/19 06:38 Ordered Peripheral IV Insertion Adult [OM.PC] Routine Oth 10/02/19 07:54 Ordered Medication Orders Albuterol/Ipratropium (Duoneb 3.0-0.5 Mg/3 Ml) 3 ml NEB Q4HRRT PRN PRN Reason: Shortness of Breath Azithromycin 500 mg/ Sodium (Chloride) 250 mls @ 250 mls/hr IV DAILY STACY Lactated Ringer's (Ringers, Lactated) 1,000 mls @ 125 mls/hr IV ASDIRECTED STACY Last Admin: 10/02/19 08:20 Dose: 125 mls/hr Ceftriaxone Sodium/Dextrose 1 (gm/ Premix) 50 mls @ 100 mls/hr IV Q24H [facility] Insulin Aspart (Novolog) 0 unit SUBCUT TIDAC [facility]; Protocol Last Admin: 10/02/19 08:29 Dose: Not Given Sodium Chloride (Saline Flush) 2.5 ml FLUSH ASDIRECTED PRN PRN Reason: Keep Vein Open Assessment/Plan Comment:: 74 y/o M admitted for CAP cont IV Azithromycin and Rocephin f/u on blood cultures Stop IV fluids as patient is eating and drinking well H/O CHF so will be judicious with fluids DuoNebs as needed SCD for dvt ppx SSI for DM Resume home Meds as appropriate
[2019-10-02] MEDS: Metoprolol Succinate 25 MG Tab.ER PO SCH (16:01)
[2019-10-02] MEDS: Simvastatin 40 MG Tab PO SCH (16:01)
[2019-10-02] MEDS: Tamsulosin 0.4 MG Cap.ER PO SCH (16:01)
[2019-10-02] MEDS: Finasteride 5 MG Tab PO SCH (16:01)
[2019-10-02] MEDS: Gabapentin 300 MG Cap PO SCH (20:15)
[2019-10-03] MEDS ORDERED: Levothyroxine 100 MCG Tab PO SCH (07:00)
[2019-10-03] MEDS: Insulin Aspart 100 Units/ML 3 ML Pen SUBCUT SCH ×2 (07:26→12:39)
[2019-10-03 07:37] VITALS: BP 147/67; PULSE 62
[2019-10-03] MEDS: Simvastatin 40 MG Tab PO SCH (08:22)
[2019-10-03] MEDS: Finasteride 5 MG Tab PO SCH (08:22)
[2019-10-03] MEDS: Gabapentin 300 MG Cap PO SCH (08:22)
[2019-10-03] MEDS: Metoprolol Succinate 25 MG Tab.ER PO SCH (08:22)
[2019-10-03] MEDS: Tamsulosin 0.4 MG Cap.ER PO SCH (08:22)
[2019-10-03] MEDS ORDERED: Furosemide 40 MG Tab PO SCH (09:00)
[2019-10-03] MEDS ORDERED: Isosorbide Mononitrate 30 MG Tab.ER PO SCH (09:00)
[2019-10-03] MEDS ORDERED: Azithromycin 500 MG in Sodium Chloride 0.9% 250 ML IV SCH (09:00)
[2019-10-03] MEDS ORDERED: cefTRIAXone 1 GM in Premix Bag 1 BAG IV SCH (09:30)
--- NOTE | 2019-10-03 12:54 | CT ---
CT chest Technique: Multiple axial sections through the chest were obtained. Intravenous contrast was not utilized. Comparison: Prior chest x-ray of 08/26/19. Findings: Cys is noted within the right kidney measuring 4.7 cm. Other visualized portions of the upper abdomen shows no discrete abnormality. No pericardial thickening is seen. Extensive coronary artery calcification is noted. Atherosclerotic calcification noted within a non-aneurysmal aorta. Atherosclerotic calcification continues into the branch vessels of the thoracic aorta. No axillary adenopathy is seen. Mediastinum and hilar region show no adenopathy. Patchy areas of increased density are seen within the superior segment of the right lower lobe as well as right upper lung. Findings most likely represent patchy bronchopneumonia. Left lung is clear. Bone window settings were reviewed which shows minimal scattered degenerative change within the spine. Impression: 1. Patchy areas of increased density within the superior segment of the right lower lung as well as right upper lung. Findings most likely represent patchy areas of bronchopneumonia. 2. Other findings believed to be incidental as noted above. Diagnostic code #3 This report was dictated in MDT
--- NOTE | 2019-10-03 13:15 | PCM.DCSUM1 ---
<Kaitlin Richards - Last Filed: 10/03/19 13:21> Discharge Summary - Hospital Course Free Text/Narrative:: Discharge summary Consultations:None Procedures:None Hospital course: Patient is a 73-year-old male with a significant past medical history of hypertension, hyperlipidemia, diabetes, hypothyroidism and tobacco use disorder/ previous; presenting with shortness of breath exertion and mild chest pain with deep inspiration. Troponin negative?COVID negative Endorsed coughing and chills previous night without any fevers; patient has had pneumonia multiple times in the past couple of years. Sleep study performed recently however patient is not on a CPAP machine. Patient otherwise not show any other signs of altered mental status. Chest x-ray significant for right middle lobe infiltrate subsequently diagnosed with pneumonia. Mildly hypoxic at 92% requiring O2. IV antibiotics started; azithromycin and Rocephin. Following morning patient's endorses feeling better would like to go home however concerns about repeated pneumonia despite up-to-date with vaccinations; chest CT performed showing right middle lobe and right upper lower lobe pneumonia; clinically patient no longer requiring supplemental oxygen. Discharged home with additional 4 days of Levaquin 750 daily. Patient advised follow-up primary care and cardiology. Patient also advised to follow-up for repeat sleep study. He will be okay Discharge condition:stable; requesting to gom home. Disposition:Home Follow-up:PCP Cardiology - Discharge Data Discharge Date: 10/03/19 Discharge Disposition: Home, Self-Care 01 Condition: Fair - Referral to Home Health Primary Care Physician: Livan Gold MD - Patient Instructions Diet: Diabetic Diet Notify Provider of: Fever, Increased Pain, Nausea and/or Vomiting - Discharge Plan *PRESCRIPTION DRUG MONITORING PROGRAM REVIEWED*: Not Applicable *COPY OF PRESCRIPTION DRUG MONITORING REPORT IN PATIENT RICHELLE: Not Applicable Prescriptions/Med Rec: levoFLOXacin [Levaquin] 750 mg PO DAILY 4 Days #4 tablet Home Medications: Home Meds Levothyroxine [Synthroid] 100 mcg PO DAILY 12/04/13 [History] Metoprolol Succinate 25 mg PO DAILY 12/04/13 [History] Simvastatin 20 tab PO DAILY 12/04/13 [History] Tamsulosin HCl 0.4 mg PO DAILY 12/04/13 [History] Sennosides/Docusate Sodium [Stool Softener] 1 tab PO BID 08/01/14 [History] Gabapentin [Neurontin] 300 mg PO BID 03/11/16 [History] Isosorbide Mononitrate [Isosorbide Mononitrate ER] 30 mg PO DAILY 03/11/16 [ History] Finasteride 5 mg PO DAILY 10/02/19 [History] Furosemide 40 mg PO DAILY 10/02/19 [History] Nitroglycerin 0.4 mg SL .Q5MIN PRN MDD 3 TABLETS 10/03/19 [History] levoFLOXacin [Levaquin] 750 mg PO DAILY 4 Days #4 tablet 10/03/19 [Rx] metFORMIN HCl [Metformin HCl ER] 500 mg PO DAILY 10/03/19 [History] Oxygen Therapy Mode: Room Air Patient Handouts: Levofloxacin tablets, Community-Acquired Pneumonia, Adult, [id number] Referrals: Livan Gold MD [Primary Care Provider] - Hernan Posey MD [Ordering Only Provider] - 10/13/19 1:00 pm - Discharge Summary/Plan Comment DC Time >30 min.: No - Patient Data Vitals - Most Recent: Last Vital Signs Temp 97.9 F 10/03/19 07:36 Pulse 62 10/03/19 08:22 Resp 19 10/03/19 07:36 BP 147/67 H 10/03/19 08:22 Pulse Ox 95 10/03/19 07:36 Weight - Most Recent: 106.64 kg I&O - Last 24 hours: Intake & Output 10/02/19 10/03/19 10/03/19 22:59 06:59 14:59 Intake Total 2066 550 Output Total 1050 100 Balance 1016 450 Lab Results - Last 24 hrs: Laboratory Results - last 24 hr 10/02/19 10/02/19 10/03/19 Range/Units 05:31 18:24 05:58 WBC (4.0-11.0) K/uL RBC (4.50-5.90) M/uL Hgb (13.0-17.0) g/dL Hct (38.0-50.0) % MCV (80.0-98.0) fL MCH (27.0-32.0) pg MCHC (31.0-37.0) g/dL RDW Std Deviation (28.0-62.0) fl RDW Coeff of [place] (11.0-15.0) % Plt Count (150-400) K/uL MPV (7.40-12.00) fL Neut % (Auto) (48.0-80.0) % Lymph % (Auto) (16.0-40.0) % [place] % (Auto) (0.0-15.0) % Eos % (Auto) (0.0-7.0) % Baso % (Auto) (0.0-1.5) % Neut # (Auto) (1.4-5.7) K/uL Lymph # (Auto) (0.6-2.4) K/uL [place] # (Auto) (0.0-0.8) K/uL Eos # (Auto) (0.0-0.7) K/uL Baso # (Auto) (0.0-0.1) K/uL Nucleated RBC % /100WBC Nucleated RBCs # K/uL POC Glucose 89 128 H (60-110) mg/dL Phosphorus 3.5 (2.6-4.7) mg/dL Magnesium 2.1 (1.8-2.4) mg/dL 10/03/19 Range/Units 06:00 WBC 10.73 (4.0-11.0) K/uL RBC 4.15 L (4.50-5.90) M/uL Hgb 13.1 (13.0-17.0) g/dL Hct 40.3 (38.0-50.0) % MCV 97.1 (80.0-98.0) fL MCH 31.6 (27.0-32.0) pg MCHC 32.5 (31.0-37.0) g/dL RDW Std Deviation 47.3 (28.0-62.0) fl RDW Coeff of [place] 13 (11.0-15.0) % Plt Count 199 (150-400) K/uL MPV 9.90 (7.40-12.00) fL Neut % (Auto) 70.3 (48.0-80.0) % Lymph % (Auto) 18.4 (16.0-40.0) % [place] % (Auto) 9.0 (0.0-15.0) % Eos % (Auto) 2.1 (0.0-7.0) % Baso % (Auto) 0.2 (0.0-1.5) % Neut # (Auto) 7.6 H (1.4-5.7) K/uL Lymph # (Auto) 2.0 (0.6-2.4) K/uL [place] # (Auto) 1.0 H (0.0-0.8) K/uL Eos # (Auto) 0.2 (0.0-0.7) K/uL Baso # (Auto) 0.0 (0.0-0.1) K/uL Nucleated RBC % 0.0 /100WBC Nucleated RBCs # 0 K/uL POC Glucose (60-110) mg/dL Phosphorus (2.6-4.7) mg/dL Magnesium (1.8-2.4) mg/dL ARACELY Results - Last 24 hrs: Microbiology 10/02/19 06:50 Aerobic Blood Culture - Preliminary Blood - Venous - Lab Draw NO GROWTH AFTER 1 DAY Anaerobic Blood Culture - Preliminary NO GROWTH AFTER 1 DAY 10/02/19 07:00 Aerobic Blood Culture - Preliminary Blood - Venous NO GROWTH AFTER 1 DAY Anaerobic Blood Culture - Preliminary NO GROWTH AFTER 1 DAY Med Orders - Current: Current Medications Albuterol/Ipratropium (Duoneb 3.0-0.5 Mg/3 Ml) 3 ml NEB Q4HRRT PRN PRN Reason: Shortness of Breath Finasteride (Proscar) 5 mg PO DAILY [facility] Last Admin: 10/03/19 08:22 Dose: 5 mg Furosemide (Lasix) 40 mg PO DAILY [facility] Last Admin: 10/03/19 08:22 Dose: 40 mg Gabapentin (Neurontin) 300 mg PO BID [facility] Last Admin: 10/03/19 08:22 Dose: 300 mg Azithromycin 500 mg/ Sodium (Chloride) 250 mls @ 250 mls/hr IV DAILY [facility] Last Admin: 10/03/19 08:15 Dose: 250 mls/hr Ceftriaxone Sodium/Dextrose 1 (gm/ Premix) 50 mls @ 100 mls/hr IV Q24H [facility] Last Admin: 10/03/19 09:24 Dose: 100 mls/hr Insulin Aspart (Novolog) 0 unit SUBCUT TIDAC [facility]; Protocol Last Admin: 10/03/19 12:39 Dose: Not Given Isosorbide Mononitrate (Imdur) 30 mg PO DAILY [facility] Last Admin: 10/03/19 08:22 Dose: 30 mg Levothyroxine Sodium (Synthroid) 100 mcg PO DAILY@0700 [facility] Last Admin: 10/03/19 07:26 Dose: 100 mcg Metoprolol Succinate (Toprol Xl) 25 mg PO DAILY [facility] Last Admin: 10/03/19 08:22 Dose: 25 mg Senna/Docusate Sodium (Senna Plus) 1 tab PO BID [facility] Last Admin: 10/03/19 08:22 Dose: 1 tab Simvastatin (Zocor) 40 mg PO DAILY [facility] Last Admin: 10/03/19 08:22 Dose: 40 mg Sodium Chloride (Saline Flush) 2.5 ml FLUSH ASDIRECTED PRN PRN Reason: Keep Vein Open Tamsulosin HCl (Flomax) 0.4 mg PO DAILY [facility] Last Admin: 10/03/19 08:22 Dose: 0.4 mg Discontinued Medications Aspirin (Aspirin) 324 mg PO ONETIME ONE Stop: 10/02/19 05:47 Last Admin: 10/02/19 06:00 Dose: 324 mg Azithromycin 500 mg/ Sodium (Chloride) 250 mls @ 250 mls/hr IV ONETIME [facility] Ceftriaxone Sodium/Dextrose 1 (gm/ Premix) 50 mls @ 100 mls/hr IV ONETIME ONE Stop: 10/02/19 07:05 Last Admin: 10/02/19 07:33 Dose: 100 mls/hr Sodium Chloride (Normal Saline) 1,000 mls @ 999 mls/hr IV .Bolus ONE Stop: 10/02/19 07:39 Last Admin: 10/02/19 07:33 Dose: 999 mls/hr Lactated Ringer's (Ringers, Lactated) 1,000 mls @ 70 mls/hr IV ASDIRECTED [facility] Last Admin: 10/02/19 08:20 Dose: 125 mls/hr Azithromycin 500 mg/ Sodium (Chloride) 250 mls @ 250 mls/hr IV ONETIME ONE Stop: 10/02/19 09:29 Last Admin: 10/02/19 08:28 Dose: 250 mls/hr Sodium Chloride (Saline Flush) 10 ml FLUSH ASDIRECTED PRN PRN Reason: Keep Vein Open Last Admin: 10/02/19 06:05 Dose: 10 ml Sodium Chloride (Saline Flush) 2.5 ml FLUSH ASDIRECTED PRN PRN Reason: Keep Vein Open Last Admin: 10/02/19 06:05 Dose: 2.5 ml <Halima Nava - Last Filed: 10/03/19 23:46> Discharge Summary - Hospital Course Free Text/Narrative:: I have seen and evaluated the patient and agree with the residents note unless specified in my note - Referral to Home Health Primary Care Physician: Livan Gold MD - Discharge Diagnosis/Problem(s) (1) HTN (hypertension) SNOMED Code(s): 47955097 ICD Code: I10 - ESSENTIAL (PRIMARY) HYPERTENSION Status: Acute (2) HLD (hyperlipidemia) SNOMED Code(s): 07298605 ICD Code: E78.5 - HYPERLIPIDEMIA, UNSPECIFIED Status: Acute (3) Diabetes SNOMED Code(s): 17513039 ICD Code: E11.9 - TYPE 2 DIABETES MELLITUS WITHOUT COMPLICATIONS Status: Acute (4) Hypothyroid SNOMED Code(s): 95009617 ICD Code: E03.9 - HYPOTHYROIDISM, UNSPECIFIED Status: Acute (5) Pneumonia SNOMED Code(s): 114175031 ICD Code: J18.9 - PNEUMONIA, UNSPECIFIED ORGANISM Status: Acute Qualifiers: Laterality: right Lung location: middle lobe of lung - Patient Data Vitals - Most Recent: Last Vital Signs Temp 36.6 C 10/03/19 07:36 Pulse 62 10/03/19 08:22 Resp 19 10/03/19 07:36 BP 147/67 H 10/03/19 08:22 Pulse Ox 95 10/03/19 07:36 Lab Results - Last 24 hrs: Laboratory Results - last 24 hr 10/03/19 10/03/19 10/03/19 Range/Units 05:58 06:00 12:21 WBC 10.73 (4.0-11.0) K/uL RBC 4.15 L (4.50-5.90) M/uL Hgb 13.1 (13.0-17.0) g/dL Hct 40.3 (38.0-50.0) % MCV 97.1 (80.0-98.0) fL MCH 31.6 (27.0-32.0) pg MCHC 32.5 (31.0-37.0) g/dL RDW Std Deviation 47.3 (28.0-62.0) fl RDW Coeff of [place] 13 (11.0-15.0) % Plt Count 199 (150-400) K/uL MPV 9.90 (7.40-12.00) fL Neut % (Auto) 70.3 (48.0-80.0) % Lymph % (Auto) 18.4 (16.0-40.0) % [place] % (Auto) 9.0 (0.0-15.0) % Eos % (Auto) 2.1 (0.0-7.0) % Baso % (Auto) 0.2 (0.0-1.5) % Neut # (Auto) 7.6 H (1.4-5.7) K/uL Lymph # (Auto) 2.0 (0.6-2.4) K/uL [place] # (Auto) 1.0 H (0.0-0.8) K/uL Eos # (Auto) 0.2 (0.0-0.7) K/uL Baso # (Auto) 0.0 (0.0-0.1) K/uL Nucleated RBC % 0.0 /100WBC Nucleated RBCs # 0 K/uL POC Glucose 128 H 92 (60-110) mg/dL [facility]ACELY Results - Last 24 hrs: Microbiology 10/02/19 06:50 Aerobic Blood Culture - Preliminary Blood - Venous - Lab Draw NO GROWTH AFTER 1 DAY Anaerobic Blood Culture - Preliminary NO GROWTH AFTER 1 DAY 10/02/19 07:00 Aerobic Blood Culture - Preliminary Blood - Venous NO GROWTH AFTER 1 DAY Anaerobic Blood Culture - Preliminary NO GROWTH AFTER 1 DAY Med Orders - Current: Current Medications Discontinued Medications Albuterol/Ipratropium (Duoneb 3.0-0.5 Mg/3 Ml) 3 ml NEB Q4HRRT PRN PRN Reason: Shortness of Breath Aspirin (Aspirin) 324 mg PO ONETIME ONE Stop: 10/02/19 05:47 Last Admin: 10/02/19 06:00 Dose: 324 mg Finasteride (Proscar) 5 mg PO DAILY [facility] Last Admin: 10/03/19 08:22 Dose: 5 mg Furosemide (Lasix) 40 mg PO DAILY [facility] Last Admin: 10/03/19 08:22 Dose: 40 mg Gabapentin (Neurontin) 300 mg PO BID [facility] Last Admin: 10/03/19 08:22 Dose: 300 mg Azithromycin 500 mg/ Sodium (Chloride) 250 mls @ 250 mls/hr IV ONETIME [facility] Ceftriaxone Sodium/Dextrose 1 (gm/ Premix) 50 mls @ 100 mls/hr IV ONETIME ONE Stop: 10/02/19 07:05 Last Admin: 10/02/19 07:33 Dose: 100 mls/hr Sodium Chloride (Normal Saline) 1,000 mls @ 999 mls/hr IV .Bolus ONE Stop: 10/02/19 07:39 Last Admin: 10/02/19 07:33 Dose: 999 mls/hr Azithromycin 500 mg/ Sodium (Chloride) 250 mls @ 250 mls/hr IV DAILY [facility] Last Admin: 10/03/19 08:15 Dose: 250 mls/hr Lactated Ringer's (Ringers, Lactated) 1,000 mls @ 70 mls/hr IV ASDIRECTED [facility] Last Admin: 10/02/19 08:20 Dose: 125 mls/hr Ceftriaxone Sodium/Dextrose 1 (gm/ Premix) 50 mls @ 100 mls/hr IV Q24H [facility] Last Admin: 10/03/19 09:24 Dose: 100 mls/hr Azithromycin 500 mg/ Sodium (Chloride) 250 mls @ 250 mls/hr IV ONETIME ONE Stop: 10/02/19 09:29 Last Admin: 10/02/19 08:28 Dose: 250 mls/hr Insulin Aspart (Novolog) 0 unit SUBCUT TIDAC [facility]; Protocol Last Admin: 10/03/19 12:39 Dose: Not Given Isosorbide Mononitrate (Imdur) 30 mg PO DAILY [facility] Last Admin: 10/03/19 08:22 Dose: 30 mg Levothyroxine Sodium (Synthroid) 100 mcg PO DAILY@0700 [facility] Last Admin: 10/03/19 07:26 Dose: 100 mcg Metoprolol Succinate (Toprol Xl) 25 mg PO DAILY [facility] Last Admin: 10/03/19 08:22 Dose: 25 mg Senna/Docusate Sodium (Senna Plus) 1 tab PO BID [facility] Last Admin: 10/03/19 08:22 Dose: 1 tab Simvastatin (Zocor) 40 mg PO DAILY [facility] Last Admin: 10/03/19 08:22 Dose: 40 mg Sodium Chloride (Saline Flush) 10 ml FLUSH ASDIRECTED PRN PRN Reason: Keep Vein Open Last Admin: 10/02/19 06:05 Dose: 10 ml Sodium Chloride (Saline Flush) 2.5 ml FLUSH ASDIRECTED PRN PRN Reason: Keep Vein Open Last Admin: 10/02/19 06:05 Dose: 2.5 ml Sodium Chloride (Saline Flush) 2.5 ml FLUSH ASDIRECTED PRN PRN Reason: Keep Vein Open Tamsulosin HCl (Flomax) 0.4 mg PO DAILY [facility] Last Admin: 10/03/19 08:22 Dose: 0.4 mg
== END 2019-10-03 13:35 | disposition home or self-care (01) | DRG 195 ==
LOC: MW.ED 05:19 → MW.MS 06:47
PROVIDERS: ADMIT Student in an Organized Health Care Education/Training Program; ATTEND Student in an Organized Health Care Education/Training Program
DX: J18.9 Pneumonia, unspecified organism (principal); H91.93 Unspecified hearing loss, bilateral; H54.7 Unspecified visual loss; I10 Essential (primary) hypertension; E78.5 Hyperlipidemia, unspecified; E11.9 Type 2 diabetes mellitus without complications; Z86.010 Personal history of colon polyps; N42.9 Disorder of prostate, unspecified; G62.9 Polyneuropathy, unspecified; E03.9 Hypothyroidism, unspecified; E78.00 Pure hypercholesterolemia, unspecified; E66.9 Obesity, unspecified; G47.30 Sleep apnea, unspecified; Z88.8 Allergy status to other drugs, medicaments and biological substances; Z88.0 Allergy status to penicillin; Z91.013 Allergy to seafood; Z88.7 Allergy status to serum and vaccine; Z79.890 Hormone replacement therapy; Z79.899 Other long term (current) drug therapy; Z79.84 Long term (current) use of oral hypoglycemic drugs; Z87.891 Personal history of nicotine dependence; Z68.32 Body mass index [BMI] 32.0-32.9, adult
CPT/HCPCS: 36415; 71045; 80053; 83735; 83880; 84100; 84484; 85025; 93005; A9270; U0002; 71250; 71250-26; 82962; 83605; 87040; 99284; J0456; J0696; J7030; J7050; J7120

== ENCOUNTER 2019-11-05 07:49 | Emergency (ER) | payer MEDICARE, OTHER ==
[2019-11-05] MEDS ORDERED: Sodium Chloride 0.9% 2.5 ML Syringe FLUSH PRN ×2 (08:02)
[2019-11-05] MEDS ORDERED: Aspirin 81 MG Tab.Chew PO ONE (08:02)
[2019-11-05] MEDS ORDERED: Sodium Chloride 0.9% 1,000 ML IV ONE (08:02)
[2019-11-05] MEDS ORDERED: Sodium Chloride 0.9% 10 ML Syringe FLUSH PRN (08:02)
--- NOTE | 2019-11-05 08:07 | EDM.PDOC ---
ED HPI GENERAL MEDICAL PROBLEM - General Chief Complaint: Chest Pain Stated Complaint: CHEST PAIN, SHORTNESS OF BREATH Time Seen by Provider: 11/05/19 07:51 - History of Present Illness INITIAL COMMENTS - FREE TEXT/NARRATIVE: history of present illness: [] Patient presents with complaints of chest pain that began at 5 AM it did not wake him from sleep he says it feels like a prior episode of pneumonia he had several weeks ago he denies any fever chills he has had some shortness of breath he has had some moderate cough he denies any nausea vomiting diarrhea no leg pain or leg swelling nothing seems to make it better or worse history of present illness: [] Review of systems: As per history of present illness and below otherwise all systems reviewed and negative. Past medical history: As per history of present illness and as reviewed below otherwise noncontributory. Surgical history: As per history of present illness and as reviewed below otherwise noncontributory. Social history: No reported history of drug or alcohol abuse. Family history: As per history of present illness and as reviewed below otherwise noncontributory. Physical exam: HEENT: Atraumatic, normocephalic, pupils reactive, negative for conjunctival pallor or scleral icterus, mucous membranes moist, throat clear, neck supple, nontender, trachea midline. Lungs: Clear to auscultation, breath sounds equal bilaterally, chest nontender. Heart: S1S2, regular, negative for clicks, rubs, or JVD. Abdomen: Soft, nondistended, nontender. Negative for masses or hepatosplenomegaly. Negative for costovertebral tenderness. Pelvis: Stable nontender. Genitourinary: Deferred. Rectal: Deferred. Extremities: Atraumatic, negative for cords or calf pain. Neurovascular unremarkable. Neuro: Awake, alert, oriented. Cranial nerves II through XII unremarkable. Cerebellum unremarkable. Motor and sensory unremarkable throughout. Exam nonfocal. Diagnostics: [] Therapeutics: [] Impression: Chest pain Plan: X-ray labs EKG reassess the patient. [] Definitive disposition and diagnosis as appropriate pending reevaluation and review of above. Bilateral Chest Pain Score (Numeric/FACES): 2 - Related Data Allergies Allergy/AdvReac Type Severity Reaction Status Date / Time Penicillins Allergy Swelling Verified 11/05/19 07:55 shellfish derived Allergy Airway Verified 11/05/19 07:55 Tightness tetanus immune globulin Allergy Cannot Verified 11/05/19 07:55 Remember Home Meds: Home Meds Levothyroxine [Synthroid] 100 mcg PO DAILY 12/04/13 [History] Metoprolol Succinate 25 mg PO DAILY 12/04/13 [History] Simvastatin 20 tab PO DAILY 12/04/13 [History] Tamsulosin HCl 0.4 mg PO DAILY 12/04/13 [History] Sennosides/Docusate Sodium [Stool Softener] 1 tab PO BID 08/01/14 [History] Gabapentin [Neurontin] 300 mg PO BID 03/11/16 [History] Isosorbide Mononitrate [Isosorbide Mononitrate ER] 30 mg PO DAILY 03/11/16 [History] Finasteride 5 mg PO DAILY 10/02/19 [History] Furosemide 40 mg PO DAILY 10/02/19 [History] Nitroglycerin 0.4 mg SL .Q5MIN PRN MDD 3 TABLETS 10/03/19 [History] levoFLOXacin [Levaquin] 750 mg PO DAILY 4 Days #4 tablet 10/03/19 [Rx] metFORMIN HCl [Metformin HCl ER] 500 mg PO DAILY 10/03/19 [History] Past Medical History HEENT History: Reports: Hard of Hearing Other HEENT History: wears glasses, has upper and lower dentures, has bilateral hearing aides Cardiovascular History: Reports: High Cholesterol, Hypertension Respiratory History: Reports: Sleep Apnea Other Respiratory History: does NOT use CPAP Gastrointestinal History: Reports: Colon Polyp Genitourinary History: Reports: Prostate Disorder Musculoskeletal History: Reports: Fracture Other Musculoskeletal History: fingers Neurological History: Reports: Neuropathy, Peripheral Psychiatric History: Reports: None Endocrine/Metabolic History: Reports: Hypothyroidism, Obesity/BMI 30+ Other Endocrine/Metabolic History: takes Metformin for diabetes Hematologic History: Reports: Blood Transfusion(s) Immunologic History: Reports: None Oncologic (Cancer) History: Reports: None Dermatologic History: Reports: None - Infectious Disease History Infectious Disease History: Reports: Chicken Pox, Measles, Mumps - Past Surgical History Head Surgeries/Procedures: Reports: None GI Surgical History: Reports: Colonoscopy, Hernia, Abdominal Endocrine Surgical History: Reports: None Musculoskeletal Surgical History: Reports: None Other Musculoskeletal Surgeries/Procedures:: Dislocated left fingers Oncologic Surgical History: Reports: None Dermatological Surgical History: Reports: None Social & Family History - Family History Family Medical History: Noncontributory - Tobacco Use Smoking Status *Q: Never Smoker - Caffeine Use Caffeine Use: Reports: None - Recreational Drug Use Recreational Drug Use: No ED ROS GENERAL - Review of Systems Review Of Systems: See Below ED EXAM, GENERAL - Physical Exam Exam: See Below EKG INTERPRETATION EKG Interpretation Comments: EKG is a normal sinus rhythm with a rate of 94 bpm there is a unifocal PVC nonspecific ST-T changes no specific ischemia read and interpreted by me Course - Vital Signs Text/Narrative:: One-view portable chest read and interpreted by me no acute cardiopulmonary pathology is evident Patient's EKG does not appear to be ischemic to troponins are negative he is pain-free in the emergency department will be discharged home follow-up with primary care. Last Recorded V/S: Last Vital Signs Temp 36.9 C 11/05/19 07:55 Pulse 72 11/05/19 10:36 Resp 14 11/05/19 10:36 BP 107/52 L 11/05/19 10:36 Pulse Ox 95 11/05/19 10:36 - Orders/Labs/Meds Orders: Active Orders 24 hr Category Date Time Status EKG Documentation Completion [RC] STAT Care 11/05/19 08:02 Active Sodium Chloride 0.9% [Saline Flush] Med 11/05/19 08:02 Active 10 ml FLUSH ASDIRECTED PRN Sodium Chloride 0.9% [Saline Flush] Med 11/05/19 08:02 Active 2.5 ml FLUSH ASDIRECTED PRN Sodium Chloride 0.9% [Saline Flush] Med 11/05/19 08:02 Active 2.5 ml FLUSH ASDIRECTED PRN Saline Lock Insert [OM.PC] Stat Oth 11/05/19 08:02 Ordered Medication Orders Sodium Chloride (Saline Flush) 10 ml FLUSH ASDIRECTED PRN PRN Reason: Keep Vein Open Last Admin: 11/05/19 08:07 Dose: 10 ml Documented by: [email or web address] Sodium Chloride (Saline Flush) 2.5 ml FLUSH ASDIRECTED PRN PRN Reason: Keep Vein Open Last Admin: 11/05/19 08:07 Dose: 2.5 ml Documented by: [id number] Sodium Chloride (Saline Flush) 2.5 ml FLUSH ASDIRECTED PRN PRN Reason: Keep Vein Open Last Admin: 11/05/19 08:07 Dose: 2.5 ml Documented by: [id number] Labs: Laboratory Tests 11/05/19 11/05/19 11/05/19 Range/Units 07:55 07:55 07:55 WBC 13.39 H (4.0-11.0) K/uL RBC 4.49 L (4.50-5.90) M/uL Hgb 14.6 (13.0-17.0) g/dL Hct 43.3 (38.0-50.0) % MCV 96.4 (80.0-98.0) fL MCH 32.5 H (27.0-32.0) pg MCHC 33.7 (31.0-37.0) g/dL RDW Std Deviation 46.1 (28.0-62.0) fl RDW Coeff of [place] 13 (11.0-15.0) % Plt Count 204 (150-400) K/uL MPV 9.50 (7.40-12.00) fL Neut % (Auto) 79.4 (48.0-80.0) % Lymph % (Auto) 15.6 L (16.0-40.0) % [place] % (Auto) 4.1 (0.0-15.0) % Eos % (Auto) 0.8 (0.0-7.0) % Baso % (Auto) 0.1 (0.0-1.5) % Neut # (Auto) 10.6 H (1.4-5.7) K/uL Lymph # (Auto) 2.1 (0.6-2.4) K/uL [place] # (Auto) 0.6 (0.0-0.8) K/uL Eos # (Auto) 0.1 (0.0-0.7) K/uL Baso # (Auto) 0.0 (0.0-0.1) K/uL Nucleated RBC % 0.0 /100WBC Nucleated RBCs # 0 K/uL Sodium 139 (136-148) mmol/L Potassium 4.4 (3.5-5.1) mmol/L Chloride 103 (98-107) mmol/L Carbon Dioxide 28.5 (21.0-32.0) mmol/L BUN 18 (7.0-18.0) mg/dL Creatinine 1.1 (0.8-1.3) mg/dL Est Cr Clr Drug Dosing 62.68 mL/min Estimated GFR (MDRD) > 60.0 ml/min Glucose 143 H (74-106) mg/dL Calcium 9.3 (8.5-10.1) mg/dL Total Bilirubin 0.3 (0.2-1.0) mg/dL AST 31 (15-37) IU/L ALT 45 (14-63) IU/L Alkaline Phosphatase 77 (46-116) U/L Troponin I < 0.050 (0.000-0.056) ng/mL B-Natriuretic Peptide 91 (<100) PG/ML Total Protein 7.2 (6.4-8.2) g/dL Albumin 3.8 (3.4-5.0) g/dL Globulin 3.4 (2.6-4.0) g/dL Albumin/Globulin Ratio 1.1 (0.9-1.6) 11/05/19 Range/Units 09:54 WBC (4.0-11.0) K/uL RBC (4.50-5.90) M/uL Hgb (13.0-17.0) g/dL Hct (38.0-50.0) % MCV (80.0-98.0) fL MCH (27.0-32.0) pg MCHC (31.0-37.0) g/dL RDW Std Deviation (28.0-62.0) fl RDW Coeff of [place] (11.0-15.0) % Plt Count (150-400) K/uL MPV (7.40-12.00) fL Neut % (Auto) (48.0-80.0) % Lymph % (Auto) (16.0-40.0) % [place] % (Auto) (0.0-15.0) % Eos % (Auto) (0.0-7.0) % Baso % (Auto) (0.0-1.5) % Neut # (Auto) (1.4-5.7) K/uL Lymph # (Auto) (0.6-2.4) K/uL [place] # (Auto) (0.0-0.8) K/uL Eos # (Auto) (0.0-0.7) K/uL Baso # (Auto) (0.0-0.1) K/uL Nucleated RBC % /100WBC Nucleated RBCs # K/uL Sodium (136-148) mmol/L Potassium (3.5-5.1) mmol/L Chloride (98-107) mmol/L Carbon Dioxide (21.0-32.0) mmol/L BUN (7.0-18.0) mg/dL Creatinine (0.8-1.3) mg/dL Est Cr Clr Drug Dosing mL/min Estimated GFR (MDRD) ml/min Glucose (74-106) mg/dL Calcium (8.5-10.1) mg/dL Total Bilirubin (0.2-1.0) mg/dL AST (15-37) IU/L ALT (14-63) IU/L Alkaline Phosphatase (46-116) U/L Troponin I < 0.050 (0.000-0.056) ng/mL B-Natriuretic Peptide (<100) PG/ML Total Protein (6.4-8.2) g/dL Albumin (3.4-5.0) g/dL Globulin (2.6-4.0) g/dL Albumin/Globulin Ratio (0.9-1.6) Meds: Medications Generic Name Dose Route Start Last Admin Trade Name Freq PRN Reason Stop Dose Admin Sodium Chloride 10 ml 11/05/19 08:02 11/05/19 08:07 Saline Flush FLUSH 10 ml ASDIRECTED PRN Administration Keep Vein Open Sodium Chloride 2.5 ml 11/05/19 08:02 11/05/19 08:07 Saline Flush FLUSH 2.5 ml ASDIRECTED PRN Administration Keep Vein Open Sodium Chloride 2.5 ml 11/05/19 08:02 11/05/19 08:07 Saline Flush FLUSH 2.5 ml ASDIRECTED PRN Administration Keep Vein Open Discontinued Medications Generic Name Dose Route Start Last Admin Trade Name Freq PRN Reason Stop Dose Admin Aspirin 324 mg 11/05/19 08:02 11/05/19 08:06 Aspirin PO 11/05/19 08:03 324 mg ONETIME ONE Administration Sodium Chloride 1,000 mls @ 999 mls/hr 11/05/19 08:02 11/05/19 08:06 Normal Saline IV 11/05/19 09:02 999 mls/hr BOLUS ONE Administration Departure - Departure Time of Disposition: 10:40 Disposition: DC/Tfer to Hospice - Home 50 Condition: Good Clinical Impression: Chest pain - Discharge Information *PRESCRIPTION DRUG MONITORING PROGRAM REVIEWED*: Not Applicable *COPY OF PRESCRIPTION DRUG MONITORING REPORT IN PATIENT RICHELLE: Not Applicable Instructions: Nonspecific Chest Pain, Adult Referrals: PCP,None [Primary Care Provider] - Forms: ED Department Discharge Additional Instructions: The following information is given to patients seen in the emergency department who are being discharged to home. This information is to outline your options for follow-up care. We provide all patients seen in our emergency department with a follow-up referral. The need for follow-up, as well as the timing and circumstances, are variable depending upon the specifics of your emergency department visit. If you don't have a primary care physician on staff, we will provide you with a referral. We always advise you to contact your personal physician following an emergency department visit to inform them of the circumstance of the visit and for follow-up with them and/or the need for any referrals to a consulting specialist. The emergency department will also refer you to a specialist when appropriate. This referral assures that you have the opportunity for follow-up care with a specialist. All of these measure are taken in an effort to provide you with optimal care, which includes your follow-up. Under all circumstances we always encourage you to contact your private physician who remains a resource for coordinating your care. When calling for follow-up care, please make the office aware that this follow-up is from your recent emergency room visit. If for any reason you are refused follow-up, please contact the [facility] Emergency Department at and asked to speak to the emergency department charge nurse. Sepsis Event Note (ED) - Evaluation Sepsis Screening Result: No Definite Risk - Focused Exam Vital Signs: Vital Signs Temp Pulse Resp BP Pulse Ox 11/05/19 10:36 72 14 107/52 L 95 11/05/19 09:50 70 15 108/57 L 92 L 11/05/19 09:12 73 15 101/54 L 93 L 11/05/19 08:44 76 15 107/55 L 92 L 11/05/19 08:24 76 15 123/68 96 11/05/19 07:55 36.9 C 95 20 147/79 H 95 - My Orders Last 24 Hours: My Active Orders 11/05/19 08:02 EKG Documentation Completion [RC] STAT Sodium Chloride 0.9% [Saline Flush] 10 ml FLUSH ASDIRECTED PRN Sodium Chloride 0.9% [Saline Flush] 2.5 ml FLUSH ASDIRECTED PRN Sodium Chloride 0.9% [Saline Flush] 2.5 ml FLUSH ASDIRECTED PRN Saline Lock Insert [OM.PC] Stat - Assessment/Plan Last 24 Hours: My Active Orders 11/05/19 08:02 EKG Documentation Completion [RC] STAT Sodium Chloride 0.9% [Saline Flush] 10 ml FLUSH ASDIRECTED PRN Sodium Chloride 0.9% [Saline Flush] 2.5 ml FLUSH ASDIRECTED PRN Sodium Chloride 0.9% [Saline Flush] 2.5 ml FLUSH ASDIRECTED PRN Saline Lock Insert [OM.PC] Stat
[2019-11-05 08:20] LABS: BLOOD UREA NITROGEN,BUN 18 mg/dL (7.0-18.0); CARBON DIOXIDE,CO2 28.5 mmol/L (21.0-32.0); CHLORIDE,CL 103 mmol/L (98-107); GLUCOSE RANDOM 143 mg/dL (74-106); POTASSIUM,K 4.4 mmol/L (3.5-5.1); SODIUM,NA 139 mmol/L (136-148)
--- NOTE | 2019-11-05 08:38 | CR ---
HISTORY: Chest pain. TECHNIQUE: One view of the chest. COMPARISON: 10/02/2019. FINDINGS: The cardiac size is upper limits of normal accounting for technique. There is no pulmonary vascular congestion. No lung consolidation or pulmonary edema. No pneumothorax or pleural effusion. There are degenerative changes of the shoulders. IMPRESSION: No consolidation or pulmonary edema. Dictated by Juan Daniel Shane MD @ 11/05/2019 8:36:59 AM Dictated by: Juan Daniel Shane MD @ 11/05/2019 08:37:04 (Electronically Signed)
[2019-11-05 10:37] VITALS: BP 107/52; PULSE 72
== END 2019-11-05 10:51 | disposition home or self-care (01) ==
LOC: MW.ED 07:49
DX: R07.9 Chest pain, unspecified (principal); E78.00 Pure hypercholesterolemia, unspecified; I10 Essential (primary) hypertension; E03.9 Hypothyroidism, unspecified; E66.9 Obesity, unspecified; Z68.32 Body mass index [BMI] 32.0-32.9, adult; E11.42 Type 2 diabetes mellitus with diabetic polyneuropathy; Z79.84 Long term (current) use of oral hypoglycemic drugs; Z88.0 Allergy status to penicillin; Z91.013 Allergy to seafood; Z88.8 Allergy status to other drugs, medicaments and biological substances; Z79.899 Other long term (current) drug therapy; R06.02 Shortness of breath
CPT/HCPCS: 36415; 71045; 80053; 83880; 84484; 85025; 93005; 99285; A9270; J7030; 93010; 99284

== ENCOUNTER 2020-03-27 03:06 | Emergency (ER) | payer MEDICARE, OTHER ==
[2020-03-27 03:23] VITALS: PULSE 79
[2020-03-27] MEDS ORDERED: Ketorolac 30 MG/ML SDV IM ONE (03:32)
--- NOTE | 2020-03-27 03:40 | EDM.PDOC ---
ED HPI GENERAL MEDICAL PROBLEM - General Chief Complaint: General Stated Complaint: BACK ACHE, BODY ACHES Time Seen by Provider: 03/27/20 03:12 - History of Present Illness INITIAL COMMENTS - FREE TEXT/NARRATIVE: 74-year-old male presenting with thoracic and lumbar back pain. Patient states that he has this type of pain often depends on how much he works. 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 He says that he often has trouble with back pain he takes ibuprofen several times a week but will sometimes managed to go a few days without taking any. He denies a particularly strenuous work schedule today. He describes gradually worsening back pain throughout the day at work and tonight he was unable to get comfortable and fall asleep. He rates the pain at 2 out of 10. He denies any radicular pain he denies any trauma he denies any urinary or bowel incontinence he denies any lower extremity weakness no abdominal pain nausea vomiting lightheadedness dizziness chest pain shortness of breath or any other symptoms. mid back Pain Score (Numeric/FACES): 2 - Related Data Allergies Allergy/AdvReac Type Severity Reaction Status Date / Time Penicillins Allergy Swelling Verified 03/27/20 03:18 shellfish derived Allergy Airway Verified 03/27/20 03:18 Tightness tetanus immune globulin Allergy Cannot Verified 03/27/20 03:18 Remember Home Meds: Home Meds Levothyroxine [Synthroid] 100 mcg PO DAILY 12/04/13 [History] Metoprolol Succinate 25 mg PO DAILY 12/04/13 [History] Simvastatin 20 tab PO DAILY 12/04/13 [History] Tamsulosin HCl 0.4 mg PO DAILY 12/04/13 [History] Sennosides/Docusate Sodium [Stool Softener] 1 tab PO BID 08/01/14 [History] Gabapentin [Neurontin] 300 mg PO BID 03/11/16 [History] Isosorbide Mononitrate [Isosorbide Mononitrate ER] 30 mg PO DAILY 03/11/16 [History] Finasteride 5 mg PO DAILY 10/02/19 [History] Nitroglycerin 0.4 mg SL .Q5MIN PRN MDD 3 TABLETS 10/03/19 [History] metFORMIN HCl [Metformin HCl ER] 500 mg PO DAILY 10/03/19 [History] Allopurinol [Zyloprim] 100 mg PO DAILY 03/27/20 [History] Multivitamin 1 tab PO DAILY 03/27/20 [History] Past Medical History HEENT History: Reports: Hard of Hearing Other HEENT History: wears glasses, has upper and lower dentures, has bilateral hearing aides Cardiovascular History: Reports: High Cholesterol Respiratory History: Reports: Sleep Apnea Other Respiratory History: does NOT use CPAP Gastrointestinal History: Reports: Colon Polyp Genitourinary History: Reports: Prostate Disorder Musculoskeletal History: Reports: Fracture Other Musculoskeletal History: fingers Neurological History: Reports: Neuropathy, Peripheral Psychiatric History: Reports: None Endocrine/Metabolic History: Reports: Hypothyroidism, Obesity/BMI 30+ Other Endocrine/Metabolic History: takes Metformin for diabetes Hematologic History: Reports: Blood Transfusion(s) Immunologic History: Reports: None Oncologic (Cancer) History: Reports: None Dermatologic History: Reports: None - Infectious Disease History Infectious Disease History: Reports: Chicken Pox, Measles, Mumps - Past Surgical History Head Surgeries/Procedures: Reports: None HEENT Surgical History: Reports: None Cardiovascular Surgical History: Reports: None Respiratory Surgical History: Reports: None GI Surgical History: Reports: Colonoscopy, Hernia, Abdominal Other GI Surgeries/Procedures: umbilical hernia Male Surgical History: Reports: None, Other (See Below) Endocrine Surgical History: Reports: None Neurological Surgical History: Reports: None Musculoskeletal Surgical History: Reports: None Other Musculoskeletal Surgeries/Procedures:: Dislocated left fingers Oncologic Surgical History: Reports: None Dermatological Surgical History: Reports: None Social & Family History - Family History Family Medical History: No Pertinent Family History - Tobacco Use Tobacco Use Status *Q: Former Tobacco User Used Tobacco, but Quit: Yes Month/Year Tobacco Last Used: 20 year ago - Caffeine Use Caffeine Use: Reports: None - Recreational Drug Use Recreational Drug Use: No ED ROS GENERAL - Review of Systems Review Of Systems: See Below Free Text/Narrative/Comment: General: No fever. Skin: No rash. Eyes: No vision problems. ENT: No sore throat. Neck: No neck stiffness. Respiratory: No shortness of breath. Cardiac: No chest pain. Gastrointestinal: No nausea, vomiting or abdominal pain. Urinary: No dysuria. Musculoskeletal: Per HPI Neurologic: No headache. ED EXAM, GENERAL - Physical Exam Exam: See Below Free Text/Narrative:: General Appearance: No acute distress, appears comfortable Skin: No rash HEENT: Normocephalic/atraumatic, sclera anicteric, mucous membranes moist Neck: Normal range of motion Chest and Lungs: Bilateral breath sounds, clear to auscultation Cardiovascular: Regular rate and rhythm, no murmur Abdomen: Soft, non-tender Back: Normal Musculoskeletal: No midline tenderness or step-offs, there is poorly localized tenderness in the bilateral paraspinal thoracic and superior lumbar region no crepitus no focal tenderness or clear deformity, lower extremity strength is normal patient ambulates with a steady gait. Neurologic: Awake, alert, no obvious deficits, moving all extremities Psychiatric: Appropriate, cooperative Course - Vital Signs Last Recorded V/S: Last Vital Signs Temp 97.3 F 03/27/20 03:16 Pulse 79 03/27/20 03:16 Resp 18 03/27/20 03:16 BP 160/72 H 03/27/20 03:16 Pulse Ox 94 L 03/27/20 03:16 - Orders/Labs/Meds Meds: Medications Discontinued Medications Generic Name Dose Route Start Last Admin Trade Name Jose Martin PRN Reason Stop Dose Admin Ketorolac Tromethamine 30 mg 03/27/20 03:32 Toradol IM 03/27/20 03:33 ONETIME ONE Departure - Departure Time of Disposition: 03:39 Disposition: Home, Self-Care 01 Condition: Good Clinical Impression: Back pain - Discharge Information *PRESCRIPTION DRUG MONITORING PROGRAM REVIEWED*: Not Applicable *COPY OF PRESCRIPTION DRUG MONITORING REPORT IN PATIENT RICHELLE: Not Applicable Instructions: Chronic Back Pain, [id number] Referrals: Livan Gold MD [Primary Care Provider] - Additional Instructions: I encourage you to follow-up with your primary care doctor. If your pain worsens or you develop any other new symptoms or concern you please call your doctor right away or return to the emergency room. The following information is given to patients seen in the emergency department who are being discharged to home. This information is to outline your options for follow-up care. We provide all patients seen in our emergency department with a follow-up referral. The need for follow-up, as well as the timing and circumstances, are variable depending upon the specifics of your emergency department visit. If you don't have a primary care physician on staff, we will provide you with a referral. We always advise you to contact your personal physician following an emergency department visit to inform them of the circumstance of the visit and for follow-up with them and/or the need for any referrals to a consulting specialist. The emergency department will also refer you to a specialist when appropriate. This referral assures that you have the opportunity for follow-up care with a specialist. All of these measure are taken in an effort to provide you with optimal care, which includes your follow-up. Under all circumstances we always encourage you to contact your private physician who remains a resource for coordinating your care. When calling for follow-up care, please make the office aware that this follow-up is from your recent emergency room visit. If for any reason you are refused follow-up, please contact the [facility] Emergency Department at and asked to speak to the emergency department charge nurse. Sepsis Event Note (ED) - Evaluation Sepsis Screening Result: No Definite Risk - Focused Exam Vital Signs: Vital Signs Temp Pulse Resp BP Pulse Ox 03/27/20 03:16 97.3 F 79 18 160/72 H 94 L - Assessment/Plan Assessment:: 74-year-old male presenting with thoracic back pain. Multiple etiologies were considered he has no chest pain or shortness of breath with suggest a cardiac process he has no cough fever shortness of breath or difficulty breathing that would suggest a pulmonary process he has no abdominal findings that would suggest acute abdominal process such as diverticulitis he does not have severe unilateral pain that would suggest renal colic. His abdominal exam is completely benign. He has no findings of cord compression or cauda equina. He has no risk factors for osteomyelitis or epidural abscess. He has had no chest pain he has never had any severe episodes of pain that would suggest aortic dissection he has stable vital signs nothing that would suggest AAA. He has no dysuria or hematuria that would suggest urinary etiology. He has no fever or other infectious symptoms. Given all of these negative findings I do think musculoskeletal back pain most likely cause given that it gradually worsened throughout the day during work. Provide a dose of Toradol and I recommended follow-up with his primary care provider. Return precautions discussed and understood
[2020-03-27 04:52] VITALS: BP 158/90
== END 2020-03-27 03:57 | disposition home or self-care (01) ==
LOC: MW.ED 03:06
DX: M54.5 Low back pain (principal); M54.6 Pain in thoracic spine; E78.00 Pure hypercholesterolemia, unspecified; E03.9 Hypothyroidism, unspecified; E66.9 Obesity, unspecified; G62.9 Polyneuropathy, unspecified; Z88.0 Allergy status to penicillin; Z91.013 Allergy to seafood; Z88.7 Allergy status to serum and vaccine; Z87.891 Personal history of nicotine dependence; Z68.30 Body mass index [BMI] 30.0-30.9, adult; Z79.899 Other long term (current) drug therapy
CPT/HCPCS: 96372; 99283; J1885

== ENCOUNTER 2020-03-31 02:15 | Emergency (ER) | payer MEDICARE, OTHER ==
[2020-03-31] MEDS ORDERED: Sodium Chloride 0.9% 2.5 ML Syringe FLUSH PRN (02:30)
[2020-03-31] MEDS ORDERED: Sodium Chloride 0.9% 1,000 ML IV ONE (02:30)
[2020-03-31] MEDS ORDERED: Sodium Chloride 0.9% 10 ML Syringe FLUSH PRN (02:30)
[2020-03-31] MEDS ORDERED: LORazepam 2 MG/ML SDV IVPUSH ONE (02:30)
--- NOTE | 2020-03-31 03:05 | CR ---
INDICATION: Shortness of breath, possible COVID TECHNIQUE: Portable upright AP view of the chest COMPARISON: AP chest radiograph 11/05/2019 FINDINGS: The lungs are clear. There is no sizable pleural effusion or pneumothorax. The cardiomediastinal silhouette is normal. The visualized osseous structures are unremarkable. IMPRESSION: No radiographic evidence of pneumonia. Dictated by Brenna Lane MD @ Mar 31 2020 3:03AM Signed by Dr. Brenna Lane @ Mar 31 2020 3:05AM
[2020-03-31 03:10] LABS: BLOOD UREA NITROGEN,BUN 16 mg/dL (7.0-18.0); CARBON DIOXIDE,CO2 25.1 mmol/L (21.0-32.0); CHLORIDE,CL 101 mmol/L (98-107); GLUCOSE RANDOM 119 mg/dL (74-106); POTASSIUM,K 4.2 mmol/L (3.5-5.1); SODIUM,NA 136 mmol/L (136-148)
--- NOTE | 2020-03-31 03:29 | EDM.PDOC ---
ED HPI GENERAL MEDICAL PROBLEM - General Chief Complaint: Respiratory Problem Stated Complaint: SOB Time Seen by Provider: 03/31/20 02:31 - History of Present Illness INITIAL COMMENTS - FREE TEXT/NARRATIVE: HISTORY AND PHYSICAL: History of present illness: This is a 74-year-old gentleman with a history significant for hypertension, hyperlipidemia, borderline diabetes who presents ER today secondary to shortness of breath after being diagnosed with coronavirus yesterday. Patient reports that he went and got a coronavirus test yesterday secondary to having a cough and some slight shortness of breath along with diffuse myalgias. Patient denies any vomiting, admits to multiple loose stools per day, denies dysuria, frequency, urgency, denies any chest pain. Patient denies pain rating to his back jaw or down his arms. Patient reports that he went to sleep this evening and woke up feeling extremely anxious and short of breath. Patient reports he has a nonproductive cough. No fevers, shakes, chills, positive nausea no vomiting. Denies abdominal or chest pain, denies calf pain or lower extremity edema. Review of systems: As per history of present illness and below otherwise all systems reviewed and negative. Past medical history: As per history of present illness and as reviewed below otherwise noncontributory. Surgical history: As per history of present illness and as reviewed below otherwise noncontr ibutory. Social history: No reported history of drug or alcohol abuse. Family history: As per history of present illness and as reviewed below otherwise noncontributory. Physical exam: Constitutional: Patient is oriented to person, place, and time. Appears well- developed and well-nourished. No distress. HEENT: Moist mucous membranes Head: Normocephalic and atraumatic Eyes: Right eye exhibits no discharge. Left eye exhibits no discharge. No scleral icterus Neck: Normal range of motion. No tracheal deviation present. Cardiovascular: Normal rate and regular rhythm. Pulmonary: Effort normal, no respiratory distress. Abdominal: No distention Musculoskeletal: Normal range of motion Neurologic: Alert and oriented to person, place and time. Skin: Hernandez, warm and dry. Psychiatric: Normal mood and affect. Behavior is normal. Judgment and thought content normal. Nursing note and vital signs have been reviewed Diagnostics: Chest Xray: Normal cardiac silhouette No infiltrates or effusions identified. No PTX No evidence of acute bony fracture. As interpreted by ER MD: Darron EKG: As interpreted by ER physician: Darron: Nonspecific ST-T wave abnormalities Normal axis No evidence of ST elevation [place] Normal sinus rhythm heart rate of 65 D-dimer 0.56 Labs otherwise normal Therapeutics: Ativan 0.5 mg IV Assessment and plan: This is a 74-year-old gentleman who presents ER today for shortness of breath. Patient reports that he thinks it is anxiety and was requesting to try a dose of anxiety medicine to see if it helped. Patient's pulse ox upon arrival to the ED has been 95 to 96%. Patient does not appear to be in any acute respiratory distress. Patient is speaking in full sentences without difficulty. Patient's chest x-ray reveals no evidence of pneumonia or significant inflammation or abnormalities. Patient's EKG and troponins are normal. Patient's D-dimer slightly elevated which has been seen frequently in patients with coronavirus. Patient's presentation does not appear to be highly consistent with PE/DVT. Patient reports after receiving the Ativan in the ED he feels much improved. Patient be stable for discharged home. Definitive disposition and diagnosis as appropriate pending reevaluation and review of above. - Related Data Allergies Allergy/AdvReac Type Severity Reaction Status Date / Time Penicillins Allergy Swelling Verified 03/31/20 02:20 shellfish derived Allergy Airway Verified 03/31/20 02:20 Tightness tetanus immune globulin Allergy Cannot Verified 03/31/20 02:20 Remember Home Meds: Home Meds Levothyroxine [Synthroid] 100 mcg PO DAILY 12/04/13 [History] Metoprolol Succinate 25 mg PO DAILY 12/04/13 [History] Simvastatin 40 tab PO DAILY 12/04/13 [History] Tamsulosin HCl 0.4 mg PO DAILY 12/04/13 [History] Sennosides/Docusate Sodium [Stool Softener] 1 tab PO DAILY 08/01/14 [History] Gabapentin [Neurontin] 300 mg PO BID 03/11/16 [History] Isosorbide Mononitrate [Isosorbide Mononitrate ER] 30 mg PO DAILY 03/11/16 [History] Finasteride 5 mg PO DAILY 10/02/19 [History] Nitroglycerin 0.4 mg SL .Q5MIN PRN MDD 3 TABLETS 10/03/19 [History] metFORMIN HCl [Metformin HCl ER] 500 mg PO DAILY 10/03/19 [History] Allopurinol [Zyloprim] 100 mg PO DAILY 03/27/20 [History] Multivitamin 1 tab PO DAILY 03/27/20 [History] LORazepam [Ativan] 0.5 mg PO BEDTIME PRN #10 tablet 03/31/20 [Rx] Past Medical History HEENT History: Reports: Hard of Hearing Other HEENT History: wears glasses, has upper and lower dentures, has bilateral hearing aides Cardiovascular History: Reports: High Cholesterol Respiratory History: Reports: Sleep Apnea Other Respiratory History: does NOT use CPAP Gastrointestinal History: Reports: Colon Polyp Genitourinary History: Reports: Prostate Disorder Musculoskeletal History: Reports: Fracture Other Musculoskeletal History: fingers Neurological History: Reports: Neuropathy, Peripheral Psychiatric History: Reports: None Endocrine/Metabolic History: Reports: Hypothyroidism, Obesity/BMI 30+ Other Endocrine/Metabolic History: takes Metformin for diabetes Hematologic History: Reports: Blood Transfusion(s) Immunologic History: Reports: None Oncologic (Cancer) History: Reports: None Dermatologic History: Reports: None - Infectious Disease History Infectious Disease History: Reports: Chicken Pox, Measles, Mumps - Past Surgical History Head Surgeries/Procedures: Reports: None HEENT Surgical History: Reports: None Cardiovascular Surgical History: Reports: None Respiratory Surgical History: Reports: None GI Surgical History: Reports: Colonoscopy, Hernia, Abdominal Other GI Surgeries/Procedures: umbilical hernia Male Surgical History: Reports: None, Other (See Below) Endocrine Surgical History: Reports: None Neurological Surgical History: Reports: None Musculoskeletal Surgical History: Reports: None Other Musculoskeletal Surgeries/Procedures:: Dislocated left fingers Oncologic Surgical History: Reports: None Dermatological Surgical History: Reports: None Social & Family History - Family History Family Medical History: No Pertinent Family History - Tobacco Use Tobacco Use Status *Q: Former Tobacco User Used Tobacco, but Quit: Yes Month/Year Tobacco Last Used: 1979 - Caffeine Use Caffeine Use: Reports: None - Recreational Drug Use Recreational Drug Use: No ED ROS GENERAL - Review of Systems Review Of Systems: See Below ED EXAM, GENERAL - Physical Exam Exam: See Below #1 Interpretation EKG Interpretation Comments: EKG: As interpreted by ER physician: Darron: Nonspecific ST-T wave abnormalities Normal axis No evidence of ST elevation [place] Normal sinus rhythm heart rate of 65 Course - Vital Signs Last Recorded V/S: Last Vital Signs Temp 98.1 F 12/05/20 02:21 Pulse 67 03/31/20 03:14 Resp 20 03/31/20 03:14 BP 138/75 03/31/20 03:14 Pulse Ox 99 03/31/20 03:14 - Orders/Labs/Meds Orders: Active Orders 24 hr Category Date Time Status EKG Documentation Completion [RC] AM Care 03/31/20 02:30 Active Sodium Chloride 0.9% [Saline Flush] Med 03/31/20 02:30 Active 10 ml FLUSH ASDIRECTED PRN Sodium Chloride 0.9% [Saline Flush] Med 03/31/20 02:30 Active 2.5 ml FLUSH ASDIRECTED PRN Saline Lock Insert [OM.PC] Stat Oth 03/31/20 02:30 Ordered Medication Orders Sodium Chloride (Saline Flush) 10 ml FLUSH ASDIRECTED PRN PRN Reason: Keep Vein Open Sodium Chloride (Saline Flush) 2.5 ml FLUSH ASDIRECTED PRN PRN Reason: Keep Vein Open Labs: Laboratory Tests 03/31/20 03/31/20 03/31/20 Range/Units 02:30 02:30 02:30 WBC 5.90 (4.0-11.0) K/uL RBC 4.46 L (4.50-5.90) M/uL Hgb 14.4 (13.0-17.0) g/dL Hct 42.9 (38.0-50.0) % MCV 96.2 (80.0-98.0) fL MCH 32.3 H (27.0-32.0) pg MCHC 33.6 (31.0-37.0) g/dL RDW Std Deviation 46.0 (28.0-62.0) fl RDW Coeff of [place] 13 (11.0-15.0) % Plt Count 138 L (150-400) K/uL MPV 10.20 (7.40-12.00) fL Neut % (Auto) 71.1 (48.0-80.0) % Lymph % (Auto) 18.8 (16.0-40.0) % [place] % (Auto) 9.2 (0.0-15.0) % Eos % (Auto) 0.7 (0.0-7.0) % Baso % (Auto) 0.2 (0.0-1.5) % Neut # (Auto) 4.2 (1.4-5.7) K/uL Lymph # (Auto) 1.1 (0.6-2.4) K/uL [place] # (Auto) 0.5 (0.0-0.8) K/uL Eos # (Auto) 0.0 (0.0-0.7) K/uL Baso # (Auto) 0.0 (0.0-0.1) K/uL Nucleated RBC % 0.0 /100WBC Nucleated RBCs # 0 K/uL D-Dimer, Quantitative 0.58 H (0.0-0.50) mg/L FEU Sodium 136 (136-148) mmol/L Potassium 4.2 (3.5-5.1) mmol/L Chloride 101 (98-107) mmol/L Carbon Dioxide 25.1 (21.0-32.0) mmol/L BUN 16 (7.0-18.0) mg/dL Creatinine 1.0 (0.8-1.3) mg/dL Est Cr Clr Drug Dosing 67.93 mL/min Estimated GFR (MDRD) > 60.0 ml/min Glucose 119 H (74-106) mg/dL Calcium 8.8 (8.5-10.1) mg/dL Total Bilirubin 0.3 (0.2-1.0) mg/dL AST 34 (15-37) IU/L ALT 48 (14-63) IU/L Alkaline Phosphatase 67 (46-116) U/L Troponin I < 0.050 (0.000-0.056) ng/mL Total Protein 7.0 (6.4-8.2) g/dL Albumin 3.5 (3.4-5.0) g/dL Globulin 3.5 (2.6-4.0) g/dL Albumin/Globulin Ratio 1.0 (0.9-1.6) Meds: Medications Generic Name Dose Route Start Last Admin Trade Name Freq PRN Reason Stop Dose Admin Sodium Chloride 10 ml 03/31/20 02:30 Saline Flush FLUSH ASDIRECTED PRN Keep Vein Open Sodium Chloride 2.5 ml 03/31/20 02:30 Saline Flush FLUSH ASDIRECTED PRN Keep Vein Open Discontinued Medications Generic Name Dose Route Start Last Admin Trade Name Freq PRN Reason Stop Dose Admin Sodium Chloride 1,000 mls @ 999 mls/hr 03/31/20 02:30 03/31/20 02:43 Normal Saline IV 03/31/20 03:30 999 mls/hr .Bolus ONE Administration Lorazepam 0.5 mg 03/31/20 02:30 03/31/20 02:43 Ativan IVPUSH 03/31/20 02:31 0.5 mg ONETIME ONE Administration Departure - Departure Time of Disposition: 03:28 Disposition: Home, Self-Care 01 Condition: Good Clinical Impression: 2019 novel coronavirus disease (COVID-19), Anxiety, Dyspnea - Discharge Information Prescriptions: LORazepam [Ativan] 0.5 mg PO BEDTIME PRN #10 tablet PRN Reason: Anxiety Instructions: COVID-19 Frequently Asked Questions, COVID-19, COVID-19: How to Protect Yourself and Others - [facility] [place], Managing Anxiety, Adult, Prevent the Spread of COVID-19 if You Are Sick - [facility] [place] Referrals: PCP,None [Primary Care Provider] - Forms: ED Department Discharge Additional Instructions: You were seen and evaluated the ER today secondary to shortness of breath. You have tested positive for coronavirus however your oxygen level has remained within normal limits throughout your ER visit. Your oxygen level is greater than 95% while you are here. It is unclear whether or not your shortness of breath is related to the coronavirus itself or secondary to anxiety over the coronavirus. It appears that the Ativan that you were given in the ER helped improve your symptoms. You will be discharged home with a prescription to take Ativan for the next couple days at night to help her get some rest. If you start feeling increasing shortness of breath please return to the ER so we can reevaluate you. The following information is given to patients seen in the emergency department who are being discharged to home. This information is to outline your options for follow-up care. We provide all patients seen in our emergency department with a follow-up referral. The need for follow-up, as well as the timing and circumstances, are variable depending upon the specifics of your emergency department visit. If you don't have a primary care physician on staff, we will provide you with a referral. We always advise you to contact your personal physician following an emergency department visit to inform them of the circumstance of the visit and for follow-up with them and/or the need for any referrals to a consulting specialist. The emergency department will also refer you to a specialist when appropriate. This referral assures that you have the opportunity for follow-up care with a specialist. All of these measure are taken in an effort to provide you with optimal care, which includes your follow-up. Under all circumstances we always encourage you to contact your private physician who remains a resource for coordinating your care. When calling for follow-up care, please make the office aware that this follow-up is from your recent emergency room visit. If for any reason you are refused follow-up, please contact the [facility] Emergency Department at and asked to speak to the emergency department charge nurse. [facility] [address] [place] [id number] [place] [address] Sepsis Event Note (ED) - Evaluation Sepsis Screening Result: No Definite Risk - Focused Exam Vital Signs: Vital Signs Temp Pulse Resp BP Pulse Ox 03/31/20 03:14 67 20 138/75 99 03/31/20 02:21 98.1 F 68 22 H 154/77 H 95 - My Orders Last 24 Hours: My Active Orders 03/31/20 02:30 EKG Documentation Completion [RC] AM Sodium Chloride 0.9% [Saline Flush] 10 ml FLUSH ASDIRECTED PRN Sodium Chloride 0.9% [Saline Flush] 2.5 ml FLUSH ASDIRECTED PRN Saline Lock Insert [OM.PC] Stat - Assessment/Plan Last 24 Hours: My Active Orders 03/31/20 02:30 EKG Documentation Completion [RC] AM Sodium Chloride 0.9% [Saline Flush] 10 ml FLUSH ASDIRECTED PRN Sodium Chloride 0.9% [Saline Flush] 2.5 ml FLUSH ASDIRECTED PRN Saline Lock Insert [OM.PC] Stat
[2020-03-31 03:45] VITALS: BP 142/67; PULSE 69
== END 2020-03-31 03:45 | disposition home or self-care (01) ==
LOC: MW.ED 02:15
DX: U07.1 COVID-19 (principal); F41.9 Anxiety disorder, unspecified; E78.5 Hyperlipidemia, unspecified; I10 Essential (primary) hypertension; N42.9 Disorder of prostate, unspecified; E11.40 Type 2 diabetes mellitus with diabetic neuropathy, unspecified; E03.9 Hypothyroidism, unspecified; E66.9 Obesity, unspecified; Z87.891 Personal history of nicotine dependence; Z68.33 Body mass index [BMI] 33.0-33.9, adult; Z88.0 Allergy status to penicillin; Z91.013 Allergy to seafood; Z88.7 Allergy status to serum and vaccine; Z79.84 Long term (current) use of oral hypoglycemic drugs; Z79.899 Other long term (current) drug therapy
CPT/HCPCS: 36415; 71045; 80053; 84484; 85025; 85379; 93005; 96374; 99285; J2060; J7030; 93010

== ENCOUNTER 2020-03-31 07:20 | Emergency (ER) | payer MEDICARE, OTHER ==
--- NOTE | 2020-03-31 07:36 | EDM.PDOC ---
ED HPI GENERAL MEDICAL PROBLEM - General Stated Complaint: SOB (COVID POSITIVE) Time Seen by Provider: 03/31/20 07:26 - History of Present Illness INITIAL COMMENTS - FREE TEXT/NARRATIVE: History of present illness: [] Patient complains of shortness of breath. He says he feels like he cannot get a breath at all. He left at 3:45 AM this morning. He had been tested positive for COVID-19 a day before and came in because of shortness of breath. The work-up revealed that he was stable for discharge and he was discharged by my partner. He returns saying he cannot get a deep breath. He has no real pain although he does have some muscle aches. Today the patient is noted to be febrile. He has a 95% oxygen saturation in triage. The D-dimer was slightly elevated at 0.58 this morning. The rest of his labs were within normal limits. Review of systems: As per history of present illness and below otherwise all systems reviewed and negative. Past medical history: As per history of present illness and as reviewed below otherwise noncontributor y. Surgical history: As per history of present illness and as reviewed below otherwise noncontributory. Social history: No reported history of drug or alcohol abuse. Family history: As per history of present illness and as reviewed below otherwise noncontributory. Physical exam: Constitutional -patient does have a low-grade fever. Well developed, well- nourished and in no acute distress HEENT - normocephalic, no evidence of trauma - external nose and mouth normal - no mass in neck and no JVD - mucosae moist EYES - full EOM, PERRL, no icterus - no evidence of inflammation, injection, or drainage Respiratory - no respiratory distress, equal bilateral expansion, lungs clear to auscultation and no abnormal lung sounds. The patient does have a cough when he takes a deep inspiration. Cardiovascular - Regular Rhythm with S1 and S2 appreciated and no murmur, gallop or rub. GI - abdomen soft without distension or organomegaly - normal bowel sounds - no guard or rebound Musculoskeletal no gross deformity of long bones or joints - no tenderness, swelling or edema Neurologic - Alert and oriented times four - CN II-XII grossly intact - motor sensory and coordination symmetrically normal Psychiatric - appropriate mood and affect with normal thought content Hematologic - No petechiae or purpura - mucosa appropriate color and sclera not pale - normal nail bed color and refill Integument - no rash or evidence of trauma - normal turgor Diagnostics: [] Therapeutics: [] Impression: [] Plan: [] Definitive disposition and diagnosis as appropriate pending reevaluation and review of above. - Related Data Allergies Allergy/AdvReac Type Severity Reaction Status Date / Time Penicillins Allergy Swelling Verified 03/31/20 07:35 shellfish derived Allergy Airway Verified 03/31/20 07:35 Tightness tetanus immune globulin Allergy Cannot Verified 03/31/20 07:35 Remember Home Meds: Home Meds Levothyroxine [Synthroid] 100 mcg PO DAILY 12/04/13 [History] Metoprolol Succinate 25 mg PO DAILY 12/04/13 [History] Simvastatin 40 tab PO DAILY 12/04/13 [History] Tamsulosin HCl 0.4 mg PO DAILY 12/04/13 [History] Sennosides/Docusate Sodium [Stool Softener] 1 tab PO DAILY 08/01/14 [History] Gabapentin [Neurontin] 300 mg PO BID 03/11/16 [History] Isosorbide Mononitrate [Isosorbide Mononitrate ER] 30 mg PO DAILY 03/11/16 [History] Finasteride 5 mg PO DAILY 10/02/19 [History] Nitroglycerin 0.4 mg SL .Q5MIN PRN MDD 3 TABLETS 10/03/19 [History] metFORMIN HCl [Metformin HCl ER] 500 mg PO DAILY 10/03/19 [History] Allopurinol [Zyloprim] 100 mg PO DAILY 03/27/20 [History] Multivitamin 1 tab PO DAILY 03/27/20 [History] LORazepam [Ativan] 0.5 mg PO BEDTIME PRN #10 tablet 03/31/20 [Rx] Past Medical History HEENT History: Reports: Hard of Hearing Other HEENT History: wears glasses, has upper and lower dentures, has bilateral hearing aides Cardiovascular History: Reports: High Cholesterol Respiratory History: Reports: Sleep Apnea Other Respiratory History: does NOT use CPAP Gastrointestinal History: Reports: Colon Polyp Genitourinary History: Reports: Prostate Disorder Musculoskeletal History: Reports: Fracture Other Musculoskeletal History: fingers Neurological History: Reports: Neuropathy, Peripheral Psychiatric History: Reports: None Endocrine/Metabolic History: Reports: Hypothyroidism, Obesity/BMI 30+ Other Endocrine/Metabolic History: takes Metformin for diabetes Hematologic History: Reports: Blood Transfusion(s) Immunologic History: Reports: None Oncologic (Cancer) History: Reports: None Dermatologic History: Reports: None - Infectious Disease History Infectious Disease History: Reports: Chicken Pox, Measles, Mumps - Past Surgical History Head Surgeries/Procedures: Reports: None HEENT Surgical History: Reports: None Cardiovascular Surgical History: Reports: None Respiratory Surgical History: Reports: None GI Surgical History: Reports: Colonoscopy, Hernia, Abdominal Other GI Surgeries/Procedures: umbilical hernia Male Surgical History: Reports: None, Other (See Below) Endocrine Surgical History: Reports: None Neurological Surgical History: Reports: None Musculoskeletal Surgical History: Reports: None Other Musculoskeletal Surgeries/Procedures:: Dislocated left fingers Oncologic Surgical History: Reports: None Dermatological Surgical History: Reports: None Social & Family History - Family History Family Medical History: No Pertinent Family History - Caffeine Use Caffeine Use: Reports: None ED ROS GENERAL - Review of Systems Review Of Systems: Comprehensive ROS is negative, except as noted in HPI. ED EXAM, GENERAL - Physical Exam Exam: See Below Free Text/Narrative:: My physical exam is in the HPI #1 Interpretation EKG Interpretation Comments: EKG 03/31/2020 at 7:31 AM which was interpreted by myself at 7:30 AM shows a sinus rhythm with a prolonged HI interval and a heart rate of 67.. HI interval 228. And QT interval 383. [place] is 5. Rest ST and T are essentially normal with a late transition to the R wave in the precordium. Compared to 11/05/2019 and the PVCs that were frequent at that time are no longer present. Impression no acute injury Course - Vital Signs Text/Narrative:: 11:02 AM the patient had a history of a severe reaction to shellfish in the remote past. He was resuscitated with adrenaline. The patient said his throat tightness at that time. By talking to [facility] we discovered that this patient has had CT contrast in the past with prep with steroids and in a drill without any adverse effect. The patient underwent a CT angio although he was not very cooperative with holding his arms out of the CT scanner during the procedure. Hopefully will be able to at least see that he does have a large pulmonary embolus. The patient was slightly confused when he returned after receiving Benadryl. Incidentally had had Ativan twice once early in the morning and once on arrival here. When we discussed with the the fact that he had presented with shortness of breath he said that he has been worked up for sleep apnea in the past. He did not follow-up and get any equipment. He remembered that and said that he did not like the mask. It is my opinion that he has COVID-19 with adequate oxygen saturation and respiration. There is an anxiety component and as well possibly a sleep apnea component of his troubles. This point it does not appear that he meets criteria for admission unless he needs that because of pulmonary emboli. 11:45 AM patient maintain his oxygen saturation throughout the stay. He is a mbulatory and not orthostatic. I will release him and recommend primary care follow-up. Last Recorded V/S: Last Vital Signs Temp 38.2 C H 03/31/20 07:21 Pulse 72 03/31/20 10:41 Resp 20 03/31/20 07:21 BP 132/72 03/31/20 10:41 Pulse Ox 96 03/31/20 10:41 - Orders/Labs/Meds Orders: Active Orders 24 hr Category Date Time Status EKG 12 Lead [EKG Documentation Completion] [RC] STAT Care 03/31/20 07:40 Active Nurse Communication: Isolation [RC] ASDIRECTED Care 03/31/20 07:35 Active Sodium Chloride 0.9% [Normal Saline] 500 ml Med 03/31/20 08:00 Active IV .BOLUS Sodium Chloride 0.9% [Saline Flush] Med 03/31/20 07:50 Active 10 ml FLUSH ASDIRECTED PRN Sodium Chloride 0.9% [Saline Flush] Med 03/31/20 07:50 Active 2.5 ml FLUSH ASDIRECTED PRN Isolation [COMM] Stat Oth 03/31/20 07:34 Active Saline Lock Insert [OM.PC] Stat Oth 03/31/20 07:50 Ordered Medication Orders Sodium Chloride (Normal Saline) 500 mls @ 999 mls/hr IV .BOLUS STACY Last Admin: 03/31/20 07:58 Dose: 999 mls/hr Documented by: ENRIQUE Sodium Chloride (Saline Flush) 10 ml FLUSH ASDIRECTED PRN PRN Reason: Keep Vein Open Last Admin: 03/31/20 07:59 Dose: 10 ml Documented by: ENRIQUE Sodium Chloride (Saline Flush) 2.5 ml FLUSH ASDIRECTED PRN PRN Reason: Keep Vein Open Last Admin: 03/31/20 07:59 Dose: 2.5 ml Documented by: ENRIQUE Labs: Laboratory Tests 03/31/20 Range/Units 08:10 ABG pH 7.437 (7.35-7.45) ABG pCO2 35 (35-45) mmHG ABG pO2 69 L (75-100) mmHG ABG HCO3 23 (22-26) mEq/L ABG Total CO2 20.7 ABG Base Excess -0.5 (-2.0-2.0) Meds: Medications Generic Name Dose Route Start Last Admin Trade Name Freq PRN Reason Stop Dose Admin Sodium Chloride 500 mls @ 999 mls/hr 03/31/20 08:00 03/31/20 07:58 Normal Saline IV 999 mls/hr .BOLUS STACY Administration Sodium Chloride 10 ml 03/31/20 07:50 03/31/20 07:59 Saline Flush FLUSH 10 ml ASDIRECTED PRN Administration Keep Vein Open Sodium Chloride 2.5 ml 03/31/20 07:50 03/31/20 07:59 Saline Flush FLUSH 2.5 ml ASDIRECTED PRN Administration Keep Vein Open Discontinued Medications Generic Name Dose Route Start Last Admin Trade Name Freq PRN Reason Stop Dose Admin Diphenhydramine HCl 50 mg 03/31/20 10:11 03/31/20 10:19 Benadryl IVPUSH 03/31/20 10:12 50 mg ONETIME ONE Administration Epinephrine HCl 0.3 mg 03/31/20 10:12 Adrenalin SUBCUT 03/31/20 10:13 ONETIME ONE Epinephrine HCl Confirm 03/31/20 10:16 03/31/20 10:45 Adrenalin Administered 03/31/20 10:17 Not Given Dose 1 mg .ROUTE .STK-MED ONE Iopamidol 100 ml 03/31/20 10:42 Isovue Multipack-370 (76%) IVPUSH 03/31/20 10:43 ONETIME ONE Iopamidol 56 ml 03/31/20 10:42 03/31/20 10:43 Isovue Multipack-370 (76%) IVPUSH 03/31/20 10:43 56 ml ONETIME ONE Administration Lorazepam 0.5 mg 03/31/20 08:05 03/31/20 08:27 Ativan IVPUSH 03/31/20 08:06 0.5 mg ONETIME ONE Administration Methylprednisolone Sodium Succinate 250 mg 03/31/20 19:16 Solu-Medrol IVPUSH 03/31/20 19:17 ONETIME ONE Methylprednisolone Sodium Succinate 250 mg 03/31/20 09:22 03/31/20 09:26 Solu-Medrol IVPUSH 03/31/20 09:23 250 mg ONETIME ONE Administration Methylprednisolone Sodium Succinate Confirm 03/31/20 09:19 03/31/20 09:26 Solu-Medrol Administered 03/31/20 09:20 Not Given Dose 125 mg .ROUTE .STK-MED ONE Methylprednisolone Sodium Succinate Confirm 03/31/20 09:20 03/31/20 09:26 Solu-Medrol Administered 03/31/20 09:21 Not Given Dose 125 mg .ROUTE .STK-MED ONE Departure - Departure Time of Disposition: 11:45 Disposition: Home, Self-Care 01 Condition: Good Clinical Impression: COVID-19 - Discharge Information Instructions: COVID-19 Frequently Asked Questions, COVID-19: How to Protect Yourself and Others - CDC, Prevent the Spread of COVID-19 if You Are Sick - [facility] [place] Referrals: PCP,None [Primary Care Provider] - Additional Instructions: [facility] - Primary Care [address] [place] [address] [place] [address] The following information is given to patients seen in the emergency department who are being discharged to home. This information is to outline your options for follow-up care. We provide all patients seen in our emergency department with a follow-up referral. The need for follow-up, as well as the timing and circumstances, are variable depending upon the specifics of your emergency department visit. If you don't have a primary care physician on staff, we will provide you with a referral. We always advise you to contact your personal physician following an emergency department visit to inform them of the circumstance of the visit and for follow-up with them and/or the need for any referrals to a consulting specialist. The emergency department will also refer you to a specialist when appropriate. This referral assures that you have the opportunity for follow-up care with a sp ecialist. All of these measure are taken in an effort to provide you with optimal care, which includes your follow-up. Under all circumstances we always encourage you to contact your private physicia n who remains a resource for coordinating your care. When calling for follow-up care, please make the office aware that this follow-up is from your recent emergency room visit. If for any reason you are refused follow-up, please contact the [facility] Emergency Department at and asked to speak to the emergency department charge nurse. Sepsis Event Note (ED) - Focused Exam Vital Signs: Vital Signs Temp Pulse Resp BP Pulse Ox 03/31/20 10:41 72 132/72 96 03/31/20 09:44 65 133/68 96 03/31/20 09:33 64 132/72 96 03/31/20 08:43 66 144/74 H 95 03/31/20 07:37 63 142/69 H 95 03/31/20 07:21 38.2 C H 63 20 151/37 H 95 - My Orders Last 24 Hours: My Active Orders 03/31/20 07:34 Isolation [COMM] Stat 03/31/20 07:35 Nurse Communication: Isolation [RC] ASDIRECTED 03/31/20 07:40 EKG 12 Lead [EKG Documentation Completion] [RC] STAT 03/31/20 07:50 Sodium Chloride 0.9% [Saline Flush] 10 ml FLUSH ASDIRECTED PRN Sodium Chloride 0.9% [Saline Flush] 2.5 ml FLUSH ASDIRECTED PRN Saline Lock Insert [OM.PC] Stat 03/31/20 08:00 Sodium Chloride 0.9% [Normal Saline] 500 ml IV .BOLUS - Assessment/Plan Last 24 Hours: My Active Orders 03/31/20 07:34 Isolation [COMM] Stat 03/31/20 07:35 Nurse Communication: Isolation [RC] ASDIRECTED 03/31/20 07:40 EKG 12 Lead [EKG Documentation Completion] [RC] STAT 03/31/20 07:50 Sodium Chloride 0.9% [Saline Flush] 10 ml FLUSH ASDIRECTED PRN Sodium Chloride 0.9% [Saline Flush] 2.5 ml FLUSH ASDIRECTED PRN Saline Lock Insert [OM.PC] Stat 03/31/20 08:00 Sodium Chloride 0.9% [Normal Saline] 500 ml IV .BOLUS
[2020-03-31] MEDS ORDERED: Sodium Chloride 0.9% 10 ML Syringe FLUSH PRN (07:50)
[2020-03-31] MEDS ORDERED: Sodium Chloride 0.9% 2.5 ML Syringe FLUSH PRN (07:50)
[2020-03-31] MEDS ORDERED: Sodium Chloride 0.9% 500 ML IV SCH (08:00)
[2020-03-31] MEDS ORDERED: LORazepam 2 MG/ML SDV IVPUSH ONE (08:05)
[2020-03-31] MEDS ORDERED: methylPREDNISolone Sodium Succinate 125 MG/2 ML SDV ONE ×2 (09:19→09:20)
[2020-03-31] MEDS ORDERED: methylPREDNISolone Sodium Succinate 125 MG/2 ML SDV IVPUSH ONE ×2 (09:22→19:16)
[2020-03-31] MEDS ORDERED: diphenhydrAMINE 50 MG/ML SDV IVPUSH ONE (10:11)
[2020-03-31] MEDS ORDERED: EPINEPHrine 1 MG/1 ML Amp SUBCUT ONE (10:12)
[2020-03-31] MEDS ORDERED: EPINEPHrine 1 MG/ML SDV ONE (10:16)
[2020-03-31] MEDS ORDERED: Iopamidol 755 MG/ML 500 ML Multipack Bottle IVPUSH ONE ×2 (10:42)
--- NOTE | 2020-03-31 11:43 | CT ---
INDICATION: Dyspnea and positive D-dimer. TECHNIQUE: CT chest pulmonary angiogram acquired with IV contrast. 56 mL Isovue 370 COMPARISON: Chest radiograph 03/31/[address] 10/03/2019. FINDINGS: No acute pulmonary embolism to the lobar level. More distal levels are not adequately opacified precluding evaluation. Normal caliber main pulmonary artery and thoracic aorta. Atherosclerotic calcifications of the thoracic aorta and coronary arteries. Normal heart size. There are mildly enlarged bilateral hilar lymph nodes, for example on the right measuring 1.1 cm (series 401, image 391 and 1.4 cm on the left (series 401, image 334). In the upper abdomen there is a small hiatal hernia. There are mild bilateral peripheral, lower lobe predominant patchy ground-glass opacities. No consolidation, pleural effusion or pneumothorax. Degenerative changes affect the spine and both shoulders. No acute osseous abnormality. IMPRESSION: 1. Limited exam for evaluation of pulmonary emboli. No evidence of acute pulmonary embolism to the lobar level. 2. Bilateral peripheral and subpleural ground-glass opacities. This is a typical CT appearance of COVID-19 pneumonia however other processes such is influenza pneumonia and organizing pneumonia,as well as drug toxicity and connective tissue disease can cause similar imaging pattern. 3. A few mildly enlarged hilar lymph are nonspecific but likely reactive. Please note that all CT scans at this facility use dose modulation, iterative reconstruction, and/or weight-based dosing when appropriate to reduce radiation dose to as low as reasonably achievable. Dictated by Casi Anderson MD @ Mar 31 2020 11:27AM Signed by Dr. Casi Anderson @ Mar 31 2020 11:41AM
[2020-03-31 13:36] VITALS: BP 100/83; PULSE 69
== END 2020-03-31 11:58 | disposition home or self-care (01) ==
LOC: MW.ED 07:20
DX: U07.1 COVID-19 (principal); E78.00 Pure hypercholesterolemia, unspecified; N42.9 Disorder of prostate, unspecified; E03.9 Hypothyroidism, unspecified; G62.9 Polyneuropathy, unspecified; E11.42 Type 2 diabetes mellitus with diabetic polyneuropathy; E66.9 Obesity, unspecified; Z68.33 Body mass index [BMI] 33.0-33.9, adult; Z88.0 Allergy status to penicillin; Z91.013 Allergy to seafood; Z88.7 Allergy status to serum and vaccine; Z79.84 Long term (current) use of oral hypoglycemic drugs; Z79.899 Other long term (current) drug therapy
CPT/HCPCS: 36600; 71275; 82803; 96374; 96375; 99285; J1200; J2060; J2930; J7040; Q9967; 93010

== ENCOUNTER 2020-04-02 21:01 | Emergency (ER) | payer MEDICARE, OTHER ==
[2020-04-02] MEDS ORDERED: Sodium Chloride 0.9% 2.5 ML Syringe FLUSH PRN (21:07)
[2020-04-02] MEDS ORDERED: Sodium Chloride 0.9% 10 ML Syringe FLUSH PRN (21:07)
[2020-04-02] MEDS ORDERED: Sodium Chloride 0.9% 1,000 ML IV ONE (21:10)
--- NOTE | 2020-04-02 21:21 | EDM.PDOC ---
ED HPI GENERAL MEDICAL PROBLEM - General Chief Complaint: Neuro Symptoms/Deficits Stated Complaint: SICK Time Seen by Provider: 04/02/20 21:10 - History of Present Illness INITIAL COMMENTS - FREE TEXT/NARRATIVE: History of present illness: [] According to the note from the fifth by my partner the patient was diagnosed with COVID-19 on the third. The says today she thinks it was before that. The says on 18 March he began to gradually deteriorate with cough active fever really increasing weakness. Seen by my partner and by myself on the fifth of this month. He felt like he was short of breath but his oxygen saturation was adequate. He did not need oxygen. He was home and drove himself home. According the he had a good day yesterday but woke up at 2 AM confused and is not really responded appropriately all day. He is too weak to get up out of his wheelchair and the sounds had to pull him out of the car put him in a wheelchair and he participated somewhat but was unable to support his own weight or walk. Review of systems: As per history of present illness and below otherwise all systems reviewed and negative. Past medical history: As per history of present illness and as reviewed below otherwise noncontributory. Surgical history: As per history of present illness and as reviewed below otherwise noncontributory. Social history: No reported history of drug or alcohol abuse. Family history: As per history of present illness and as reviewed below otherwise noncontributory. Physical exam: Constitutional - well developed, well-nourished and in no acute distress HEENT - normocephalic, no evidence of trauma - external nose and mouth normal - no mass in neck and no JVD - mucosae moist EYES - full EOM, PERRL, no icterus - no evidence of inflammation, injection, or drainage Respiratory - no respiratory distress, equal bilateral expansion, lungs wheezes throughout. Patient coughs almost continuously. Cardiovascular - Regular Rhythm with S1 and S2 appreciated and no murmur, gallop or rub. GI - abdomen soft without distension or organomegaly - normal bowel sounds - no guard or rebound Musculoskeletal no gross deformity of long bones or joints - no tenderness, swelling or edema Neurologic - Alert and oriented- CN II-XII grossly intact - motor sensory and coordination symmetrically normal best I can ascertain but he does not cooperate. When given something he holds onto it and does not like to go. He does not follow commands well but intermittently he does open his eyes when asked and he does grasp when asked to squeeze with his hands. Psychiatric -patient is calm but confused. Hematologic - No petechiae or purpura - mucosa appropriate color and sclera not pale - normal nail bed color and refill Integument - no rash or evidence of trauma - normal turgor Diagnostics: [] Therapeutics: [] Impression: [] Plan: [] Definitive disposition and diagnosis as appropriate pending reevaluation and review of above. - Related Data Allergies Allergy/AdvReac Type Severity Reaction Status Date / Time Penicillins Allergy Swelling Verified 04/02/20 21:24 shellfish derived Allergy Airway Verified 04/02/20 21:24 Tightness tetanus immune globulin Allergy Cannot Verified 04/02/20 21:24 Remember Home Meds: Home Meds Levothyroxine [Synthroid] 100 mcg PO DAILY 12/04/13 [History] Metoprolol Succinate 25 mg PO DAILY 12/04/13 [History] Simvastatin 40 tab PO DAILY 12/04/13 [History] Tamsulosin HCl 0.4 mg PO DAILY 12/04/13 [History] Sennosides/Docusate Sodium [Stool Softener] 1 tab PO DAILY 08/01/14 [History] Gabapentin [Neurontin] 300 mg PO BID 03/11/16 [History] Isosorbide Mononitrate [Isosorbide Mononitrate ER] 30 mg PO DAILY 03/11/16 [History] Finasteride 5 mg PO DAILY 10/02/19 [History] Nitroglycerin 0.4 mg SL .Q5MIN PRN MDD 3 TABLETS 10/03/19 [History] metFORMIN HCl [Metformin HCl ER] 500 mg PO DAILY 10/03/19 [History] Allopurinol [Zyloprim] 100 mg PO DAILY 03/27/20 [History] Multivitamin 1 tab PO DAILY 03/27/20 [History] LORazepam [Ativan] 0.5 mg PO BEDTIME PRN #10 tablet 03/31/20 [Rx] Past Medical History HEENT History: Reports: Hard of Hearing Other HEENT History: wears glasses, has upper and lower dentures, has bilateral hearing aides Cardiovascular History: Reports: High Cholesterol Respiratory History: Reports: Sleep Apnea Other Respiratory History: does NOT use CPAP Gastrointestinal History: Reports: Colon Polyp Genitourinary History: Reports: Prostate Disorder Musculoskeletal History: Reports: Fracture Other Musculoskeletal History: fingers Neurological History: Reports: Neuropathy, Peripheral Psychiatric History: Reports: None Endocrine/Metabolic History: Reports: Hypothyroidism, Obesity/BMI 30+ Other Endocrine/Metabolic History: takes Metformin for diabetes Hematologic History: Reports: Blood Transfusion(s) Immunologic History: Reports: None Oncologic (Cancer) History: Reports: None Dermatologic History: Reports: None - Infectious Disease History Infectious Disease History: Reports: Chicken Pox, Measles, Mumps - Past Surgical History Head Surgeries/Procedures: Reports: None HEENT Surgical History: Reports: None Cardiovascular Surgical History: Reports: None Respiratory Surgical History: Reports: None GI Surgical History: Reports: Colonoscopy, Hernia, Abdominal Other GI Surgeries/Procedures: umbilical hernia Male Surgical History: Reports: None, Other (See Below) Endocrine Surgical History: Reports: None Neurological Surgical History: Reports: None Musculoskeletal Surgical History: Reports: None Other Musculoskeletal Surgeries/Procedures:: Dislocated left fingers Oncologic Surgical History: Reports: None Dermatological Surgical History: Reports: None Social & Family History - Family History Family Medical History: No Pertinent Family History - Caffeine Use Caffeine Use: Reports: None ED ROS GENERAL - Review of Systems Review Of Systems: Comprehensive ROS is negative, except as noted in HPI. ED EXAM, GENERAL - Physical Exam Exam: See Below Free Text/Narrative:: My physical exam is in the HPI #1 Interpretation EKG Interpretation Comments: EKG done at 2140 hrs. and read at 2146 dictated at 2150. Sinus rhythm heart rate 86 NE interval 63. QT [address] changes. There did 03/31/2020 no change except addition of a PVC now. Impression no acute injury Course - Vital Signs Text/Narrative:: 2215 hrs. the patient is not able to lay down in CT and is confused. Plan to medicate enough to get a CT and hopefully not too much to cause respiratory depression and develop an airway need. Need to be sedated get CT. Had not seen the thing obvious on the CT. Once the CT is read by the radiologist I will give him Lovenox. We do not have a neurologist and he has an obvious change in mental status related to his Covid pneumonia. ABG and blood glucose do not really explain these changes. Discussed with Dr. MonterrosoEva and he agreed discussed the patient and evaluate him in the emergency room and arrange proper placement and consultations. This patient had an altered mental status that could have indicated a significant ocher hemorrhage. It is hard to manage him and he had to be given anxiolytic medicine and antipsychotic medicine in order to get the CT. Total critical care time was 35 minutes Last Recorded V/S: Last Vital Signs Temp 37.0 C 04/02/20 23:21 Pulse 89 04/02/20 23:21 Resp 20 04/02/20 23:21 BP 157/93 H 04/02/20 23:21 Pulse Ox 97 04/02/20 23:21 - Orders/Labs/Meds Orders: Active Orders 24 hr Category Date Time Status EKG Documentation Completion [RC] AM Care 04/02/20 21:07 Active Head wo Cont [CT] Stat Exams 04/02/20 21:28 Taken CULTURE BLOOD [BC] Stat Lab 04/02/20 21:25 Received CULTURE BLOOD [BC] Stat Lab 04/02/20 21:47 Received UA W/ARACELY RFLX IF INDICATED [URIN] Stat Lab 04/02/20 21:08 Ordered Sodium Chloride 0.9% [Saline Flush] Med 04/02/20 21:07 Active 10 ml FLUSH ASDIRECTED PRN Sodium Chloride 0.9% [Saline Flush] Med 04/02/20 21:07 Active 2.5 ml FLUSH ASDIRECTED PRN Blood Culture x2 Reflex Set [OM.PC] Stat Oth 04/02/20 21:08 Ordered Saline Lock Insert [OM.PC] Stat Oth 04/02/20 21:07 Ordered Medication Orders Sodium Chloride (Saline Flush) 10 ml FLUSH ASDIRECTED PRN PRN Reason: Keep Vein Open Sodium Chloride (Saline Flush) 2.5 ml FLUSH ASDIRECTED PRN PRN Reason: Keep Vein Open Labs: Laboratory Tests 04/02/20 04/02/20 04/02/20 Range/Units 21:25 21:25 21:25 WBC 4.96 (4.0-11.0) K/uL RBC 4.37 L (4.50-5.90) M/uL Hgb 14.0 (13.0-17.0) g/dL Hct 41.6 (38.0-50.0) % MCV 95.2 (80.0-98.0) fL MCH 32.0 (27.0-32.0) pg MCHC 33.7 (31.0-37.0) g/dL RDW Std Deviation 45.1 (28.0-62.0) fl RDW Coeff of Florence 13 (11.0-15.0) % Plt Count 162 (150-400) K/uL MPV 10.20 (7.40-12.00) fL Neut % (Auto) 76.5 (48.0-80.0) % Lymph % (Auto) 17.5 (16.0-40.0) % Barrow % (Auto) 6.0 (0.0-15.0) % Eos % (Auto) 0.0 (0.0-7.0) % Baso % (Auto) 0.0 (0.0-1.5) % Neut # (Auto) 3.8 (1.4-5.7) K/uL Lymph # (Auto) 0.9 (0.6-2.4) K/uL Barrow # (Auto) 0.3 (0.0-0.8) K/uL Eos # (Auto) 0.0 (0.0-0.7) K/uL Baso # (Auto) 0.0 (0.0-0.1) K/uL Nucleated RBC % 0.0 /100WBC Nucleated RBCs # 0 K/uL ABG pH (7.35-7.45) ABG pCO2 (35-45) mmHG ABG pO2 (75-100) mmHG ABG HCO3 (22-26) mEq/L ABG Total CO2 ABG Base Excess (-2.0-2.0) Lactate 1.3 (0.20-2.00) mmol/L Sodium 133 L (136-148) mmol/L Potassium 3.8 (3.5-5.1) mmol/L Chloride 98 (98-107) mmol/L Carbon Dioxide 23.8 (21.0-32.0) mmol/L BUN 16 (7.0-18.0) mg/dL Creatinine 1.2 (0.8-1.3) mg/dL Est Cr Clr Drug Dosing 56.61 mL/min Estimated GFR (MDRD) 59.3 ml/min Glucose 89 (74-106) mg/dL Calcium 8.4 L (8.5-10.1) mg/dL Total Bilirubin 0.4 (0.2-1.0) mg/dL AST 57 H (15-37) IU/L ALT 53 (14-63) IU/L Alkaline Phosphatase 57 (46-116) U/L Troponin I 0.061 H* (0.000-0.056) ng/mL B-Natriuretic Peptide (<100) PG/ML Total Protein 6.9 (6.4-8.2) g/dL Albumin 3.4 (3.4-5.0) g/dL Globulin 3.5 (2.6-4.0) g/dL Albumin/Globulin Ratio 1.0 (0.9-1.6) 04/02/20 04/02/20 Range/Units 21:25 21:36 WBC (4.0-11.0) K/uL RBC (4.50-5.90) M/uL Hgb (13.0-17.0) g/dL Hct (38.0-50.0) % MCV (80.0-98.0) fL MCH (27.0-32.0) pg MCHC (31.0-37.0) g/dL RDW Std Deviation (28.0-62.0) fl RDW Coeff of Florence (11.0-15.0) % Plt Count (150-400) K/uL MPV (7.40-12.00) fL Neut % (Auto) (48.0-80.0) % Lymph % (Auto) (16.0-40.0) % Barrow % (Auto) (0.0-15.0) % Eos % (Auto) (0.0-7.0) % Baso % (Auto) (0.0-1.5) % Neut # (Auto) (1.4-5.7) K/uL Lymph # (Auto) (0.6-2.4) K/uL Barrow # (Auto) (0.0-0.8) K/uL Eos # (Auto) (0.0-0.7) K/uL Baso # (Auto) (0.0-0.1) K/uL Nucleated RBC % /100WBC Nucleated RBCs # K/uL ABG pH 7.510 H (7.35-7.45) ABG pCO2 27 L (35-45) mmHG ABG pO2 69 L (75-100) mmHG ABG HCO3 22 (22-26) mEq/L ABG Total CO2 18.9 ABG Base Excess -0.2 (-2.0-2.0) Lactate (0.20-2.00) mmol/L Sodium (136-148) mmol/L Potassium (3.5-5.1) mmol/L Chloride (98-107) mmol/L Carbon Dioxide (21.0-32.0) mmol/L BUN (7.0-18.0) mg/dL Creatinine (0.8-1.3) mg/dL Est Cr Clr Drug Dosing mL/min Estimated GFR (MDRD) ml/min Glucose (74-106) mg/dL Calcium (8.5-10.1) mg/dL Total Bilirubin (0.2-1.0) mg/dL AST (15-37) IU/L ALT (14-63) IU/L Alkaline Phosphatase (46-116) U/L Troponin I (0.000-0.056) ng/mL B-Natriuretic Peptide 229 H (<100) PG/ML Total Protein (6.4-8.2) g/dL Albumin (3.4-5.0) g/dL Globulin (2.6-4.0) g/dL Albumin/Globulin Ratio (0.9-1.6) Meds: Medications Generic Name Dose Route Start Last Admin Trade Name Freq PRN Reason Stop Dose Admin Sodium Chloride 10 ml 04/02/20 21:07 Saline Flush FLUSH ASDIRECTED PRN Keep Vein Open Sodium Chloride 2.5 ml 04/02/20 21:07 Saline Flush FLUSH ASDIRECTED PRN Keep Vein Open Discontinued Medications Generic Name Dose Route Start Last Admin Trade Name Freq PRN Reason Stop Dose Admin Diphenhydramine HCl 25 mg 04/02/20 22:15 04/02/20 22:37 Benadryl IVPUSH 04/02/20 22:16 25 mg ONETIME ONE Administration Haloperidol Lactate 1 mg 04/02/20 22:14 04/02/20 22:38 Haldol IM 04/02/20 22:15 1 mg ONETIME ONE Administration Sodium Chloride 1,000 mls @ 999 mls/hr 04/02/20 21:10 04/02/20 21:35 Normal Saline IV 04/02/20 22:10 999 mls/hr .Bolus ONE Administration Lorazepam Confirm 04/02/20 22:05 04/02/20 22:55 Ativan Administered 04/02/20 22:06 Not Given Dose 2 mg .ROUTE .STK-MED ONE Lorazepam 1 mg 04/02/20 22:13 04/02/20 22:35 Ativan IVPUSH 04/02/20 22:14 1 mg ONETIME ONE Administration Departure - Departure Time of Disposition: 00:45 Disposition: DC/Tfer to Acute Hospital 02 Condition: Fair Clinical Impression: Altered mental status, Pneumonia due to COVID-19 virus - Discharge Information Referrals: Livan Gold MD [Primary Care Provider] - Forms: ED Department Discharge Sepsis Event Note (ED) - Focused Exam Vital Signs: Vital Signs Temp Pulse Resp BP Pulse Ox 04/02/20 23:21 37.0 C 89 20 157/93 H 97 04/02/20 22:45 88 20 144/69 H 95 04/02/20 21:18 36.7 C 89 20 149/44 H 95 - My Orders Last 24 Hours: My Active Orders 04/02/20 21:07 EKG Documentation Completion [RC] AM Sodium Chloride 0.9% [Saline Flush] 10 ml FLUSH ASDIRECTED PRN Sodium Chloride 0.9% [Saline Flush] 2.5 ml FLUSH ASDIRECTED PRN Saline Lock Insert [OM.PC] Stat 04/02/20 21:08 UA W/ARACELY RFLX IF INDICATED [URIN] Stat Blood Culture x2 Reflex Set [OM.PC] Stat 04/02/20 21:25 CULTURE BLOOD [BC] Stat 04/02/20 21:28 Head wo Cont [CT] Stat 04/02/20 21:47 CULTURE BLOOD [BC] Stat - Assessment/Plan Last 24 Hours: My Active Orders 04/02/20 21:07 EKG Documentation Completion [RC] AM Sodium Chloride 0.9% [Saline Flush] 10 ml FLUSH ASDIRECTED PRN Sodium Chloride 0.9% [Saline Flush] 2.5 ml FLUSH ASDIRECTED PRN Saline Lock Insert [OM.PC] Stat 04/02/20 21:08 UA W/ARACELY RFLX IF INDICATED [URIN] Stat Blood Culture x2 Reflex Set [OM.PC] Stat 04/02/20 21:25 CULTURE BLOOD [BC] Stat 04/02/20 21:28 Head wo Cont [CT] Stat 04/02/20 21:47 CULTURE BLOOD [BC] Stat
--- NOTE | 2020-04-02 21:51 | CR ---
Indication: Cough Technique: Chest 1 view Comparison: 03/31/2020 Findings/Impression: Cardiovascular and mediastinum: Stable cardiomediastinal silhouette. Lungs and pleural space: Bilateral mid and lower lung interstitial and patchy airspace opacities consistent with infectious infiltrates, including COVID-19 pneumonia. Correlate clinically and follow-up. No pleural effusions. No pneumothorax seen. Bones and soft tissues: No significant change. Dictated by Dagoberto Diaz MD @ Apr 02 2020 9:48PM Signed by Dr. Dagoberto Diaz @ Apr 02 2020 9:50PM
[2020-04-02 21:55] LABS: CARBON DIOXIDE,CO2 23.8 mmol/L (21.0-32.0); POTASSIUM,K 3.8 mmol/L (3.5-5.1)
[2020-04-02] MEDS ORDERED: LORazepam 2 MG/ML SDV ONE (22:05)
[2020-04-02] MEDS ORDERED: LORazepam 2 MG/ML SDV IVPUSH ONE ×2 (22:13→23:59)
[2020-04-02] MEDS ORDERED: Haloperidol Lactate 5 MG/ML SDV IM ONE (22:14)
[2020-04-02] MEDS ORDERED: diphenhydrAMINE 50 MG/ML SDV IVPUSH ONE (22:15)
[2020-04-02 23:50] VITALS: BP 148/69; PULSE 90
--- NOTE | 2020-04-03 | CT ---
INDICATION: Confusion. COVID-19 positive. TECHNIQUE: CT head without contrast. COMPARISON: None available FINDINGS: There is mild age-related cortical atrophy. The ventricles are within normal limits for the patient`s age. There is no mass effect or midline shift. There is no loss of alex-white differentiation. There is no evidence of an acute intracranial hemorrhage. No acute calvarial fracture is seen. Slight paranasal sinus mucosal thickening is noted. The mastoid air cells are clear. The visualized orbits are within normal limits. IMPRESSION: No evidence of an acute intracranial hemorrhage, mass effect or loss of alex-white differentiation. Please note that all CT scans at this facility use dose modulation, iterative reconstruction, and/or weight-based dosing when appropriate to reduce radiation dose to as low as reasonably achievable. Dictated by Dagoberto Diaz MD @ Apr 02 2020 11:44PM Signed by Dr. Dagoberto Diaz @ Apr 02 2020 11:59PM
[2020-04-03] MEDS ORDERED: Enoxaparin 100 MG/1 ML Syringe SUBCUT ONE (00:02)
[2020-04-03] MEDS: LORazepam 2 MG/ML SDV ONE ×2 (00:54→01:10)
[2020-04-03] MEDS ORDERED: Haloperidol Lactate 5 MG/ML SDV IM ONE (00:56)
[2020-04-03] MEDS ORDERED: diphenhydrAMINE 50 MG/ML SDV ONE (00:57)
[2020-04-03] MEDS ORDERED: Haloperidol Lactate 5 MG/ML SDV ONE (00:57)
[2020-04-03] MEDS ORDERED: diphenhydrAMINE 50 MG/ML SDV IVPUSH ONE (00:57)
[2020-04-03] MEDS ORDERED: LORazepam 2 MG/ML SDV IVPUSH STA (01:10)
== END 2020-04-03 01:10 ==
LOC: MW.ED 21:01
DX: U07.1 COVID-19 (principal); J12.89 Other viral pneumonia; R41.82 Altered mental status, unspecified; E78.00 Pure hypercholesterolemia, unspecified; E03.9 Hypothyroidism, unspecified; E66.9 Obesity, unspecified; Z68.33 Body mass index [BMI] 33.0-33.9, adult; Z88.0 Allergy status to penicillin; Z91.013 Allergy to seafood; Z88.7 Allergy status to serum and vaccine; Z79.899 Other long term (current) drug therapy; Z79.84 Long term (current) use of oral hypoglycemic drugs
CPT/HCPCS: 36415; 36600; 70450; 71045; 80053; 82803; 83605; 83880; 84484; 85025; 87040; 93005; 96372; 96374; 96375; 96376; 99285; J1200; J1630; J1650; J2060; J7030; 93010

== ENCOUNTER 2020-06-23 09:16 | Emergency (ER) | payer MEDICARE, OTHER ==
--- NOTE | 2020-06-23 09:37 | EDM.PDOC ---
ED HPI GENERAL MEDICAL PROBLEM - General Chief Complaint: Genitourinary Problem Stated Complaint: catheter bleeding Time Seen by Provider: 06/23/20 09:19 - History of Present Illness INITIAL COMMENTS - FREE TEXT/NARRATIVE: 74-year-old male with history of chronic urinary retention with a Frazier catheter requirement for the last few months ever since a course in the ICU in my not related to Covid. He is presenting with penile pain and hematuria after accidentally stepping on his catheter last night as he made his way to the bathroom. No abdominal pain no fevers or chills no other symptoms. Patient unsure if it is still inappropriately or still draining. - Related Data Allergies Allergy/AdvReac Type Severity Reaction Status Date / Time Penicillins Allergy Swelling Verified 04/02/20 21:24 shellfish derived Allergy Airway Verified 04/02/20 21:24 Tightness tetanus immune globulin Allergy Itching Verified 06/23/20 09:55 Home Meds: Home Meds Levothyroxine [Synthroid] 100 mcg PO DAILY 12/04/13 [History] Metoprolol Succinate 25 mg PO DAILY 12/04/13 [History] Simvastatin 40 tab PO DAILY 12/04/13 [History] Tamsulosin HCl 0.4 mg PO DAILY 12/04/13 [History] Sennosides/Docusate Sodium [Stool Softener] 1 tab PO DAILY 08/01/14 [History] Gabapentin [Neurontin] 300 mg PO BID 03/11/16 [History] Isosorbide Mononitrate [Isosorbide Mononitrate ER] 30 mg PO DAILY 03/11/16 [History] Finasteride 5 mg PO DAILY 10/02/19 [History] Nitroglycerin 0.4 mg SL .Q5MIN PRN MDD 3 TABLETS 10/03/19 [History] metFORMIN HCl [Metformin HCl ER] 500 mg PO DAILY 10/03/19 [History] Allopurinol [Zyloprim] 100 mg PO DAILY 03/27/20 [History] Multivitamin 1 tab PO DAILY 03/27/20 [History] LORazepam [Ativan] 0.5 mg PO BEDTIME PRN #10 tablet 03/31/20 [Rx] LORazepam [Lorazepam] 2 mg IV ONETIME PRN #2 ml 04/03/20 [Rx] Past Medical History HEENT History: Reports: Hard of Hearing Other HEENT History: wears glasses, has upper and lower dentures, has bilateral hearing aides Cardiovascular History: Reports: High Cholesterol Respiratory History: Reports: Sleep Apnea Other Respiratory History: does NOT use CPAP Gastrointestinal History: Reports: Colon Polyp Genitourinary History: Reports: Prostate Disorder Musculoskeletal History: Reports: Fracture Other Musculoskeletal History: fingers Neurological History: Reports: Neuropathy, Peripheral Psychiatric History: Reports: None Endocrine/Metabolic History: Reports: Hypothyroidism, Obesity/BMI 30+ Other Endocrine/Metabolic History: takes Metformin for diabetes Hematologic History: Reports: Blood Transfusion(s) Immunologic History: Reports: None Oncologic (Cancer) History: Reports: None Dermatologic History: Reports: None - Infectious Disease History Infectious Disease History: Reports: Chicken Pox, Measles, Mumps - Past Surgical History Head Surgeries/Procedures: Reports: None HEENT Surgical History: Reports: None Cardiovascular Surgical History: Reports: None Respiratory Surgical History: Reports: None GI Surgical History: Reports: Colonoscopy, Hernia, Abdominal Other GI Surgeries/Procedures: umbilical hernia Male Surgical History: Reports: None, Other (See Below) Endocrine Surgical History: Reports: None Neurological Surgical History: Reports: None Musculoskeletal Surgical History: Reports: None Other Musculoskeletal Surgeries/Procedures:: Dislocated left fingers Oncologic Surgical History: Reports: None Dermatological Surgical History: Reports: None Social & Family History - Family History Family Medical History: No Pertinent Family History - Caffeine Use Caffeine Use: Reports: Coffee ED ROS GENERAL - Review of Systems Review Of Systems: See Below Free Text/Narrative/Comment: Gastrointestinal: No nausea, vomiting or abdominal pain. Urinary: Per HPI ED EXAM, GENERAL - Physical Exam Exam: See Below Free Text/Narrative:: General Appearance: No acute distress, appears comfortable HEENT: Normocephalic/atraumatic, sclera anicteric, mucous membranes moist Abdomen: Soft, non-tender : Frazier catheter in place there is a scant amount of light red blood around the Frazier catheter the meatus appears intact without apparent trauma Neurologic: Awake, alert, no obvious deficits, moving all extremities Psychiatric: Appropriate, cooperative Course - Vital Signs Last Recorded V/S: Last Vital Signs Temp 96.8 F L 06/23/20 09:25 Pulse 85 06/23/20 09:25 Resp 18 06/23/20 09:25 BP 114/78 06/23/20 09:25 Pulse Ox 98 06/23/20 09:25 Departure - Departure Time of Disposition: 10:32 Disposition: Home, Self-Care 01 Condition: Good Clinical Impression: Hematuria - Discharge Information *PRESCRIPTION DRUG MONITORING PROGRAM REVIEWED*: Not Applicable *COPY OF PRESCRIPTION DRUG MONITORING REPORT IN PATIENT RICHELLE: Not Applicable Instructions: Indwelling Urinary Catheter Care, Adult Referrals: Livan Gold MD [Primary Care Provider] - Forms: ED Department Discharge Additional Instructions: The blood in your urine should slowly improve as any injury related to the incident last night heals and your UTI is treated. If you have any ongoing issues please follow-up with your doctor. If you have severe pain severe bleeding or your catheter stops draining please call your doctor right away or return to the ER. The following information is given to patients seen in the emergency department who are being discharged to home. This information is to outline your options for follow-up care. We provide all patients seen in our emergency department with a follow-up referral. The need for follow-up, as well as the timing and circumstances, are variable depending upon the specifics of your emergency department visit. If you don't have a primary care physician on staff, we will provide you with a referral. We always advise you to contact your personal physician following an emergency department visit to inform them of the circumstance of the visit and for follow-up with them and/or the need for any referrals to a consulting specialist. The emergency department will also refer you to a specialist when appropriate. This referral assures that you have the opportunity for follow-up care with a specialist. All of these measure are taken in an effort to provide you with optimal care, which includes your follow-up. Under all circumstances we always encourage you to contact your private physician who remains a resource for coordinating your care. When calling for follow-up care, please make the office aware that this follow-up is from your recent emergency room visit. If for any reason you are refused follow-up, please contact the [facility] Emergency Department at and asked to speak to the emergency department charge nurse. Sepsis Event Note (ED) - Focused Exam Vital Signs: Vital Signs Temp Pulse Resp BP Pulse Ox 06/23/20 09:25 96.8 F L 85 18 114/78 98 - Assessment/Plan Assessment:: 74-year-old male presenting with issues related to his Frazier catheter as describ ed. Frazier catheter appears to still be in position but unclear if it is still draining there is some urine still flowing into the catheter. Nursing well assess this and attempt to reposition. We will try and avoid Frazier replacement if possible as this catheter was only placed a week ago. Patient already on Cipro for UTI no signs of sepsis no other symptoms that require emergent evaluation at this time. Frazier easily repositioned by nursing and draining well. Pt discharged with f/u.
[2020-06-23 09:53] VITALS: BP 114/78; PULSE 85
== END 2020-06-23 10:37 | disposition home or self-care (01) ==
LOC: MW.ED 09:16
DX: R31.9 Hematuria, unspecified (principal); E78.00 Pure hypercholesterolemia, unspecified; E03.9 Hypothyroidism, unspecified; E66.9 Obesity, unspecified; Z68.29 Body mass index [BMI] 29.0-29.9, adult; Z88.0 Allergy status to penicillin; Z91.013 Allergy to seafood; Z88.7 Allergy status to serum and vaccine; Z79.899 Other long term (current) drug therapy
CPT/HCPCS: 99283

== ENCOUNTER 2020-07-05 18:53 | Emergency (ER) | payer MEDICARE, OTHER ==
--- NOTE | 2020-07-05 19:10 | EDM.PDOC ---
ED HPI GENERAL MEDICAL PROBLEM - General Chief Complaint: Genitourinary Problem Time Seen by Provider: 07/05/20 18:58 Source of Information: Reports: Patient History Limitations: Reports: No Limitations - History of Present Illness INITIAL COMMENTS - FREE TEXT/NARRATIVE: 74-year-old male past medical history diabetes, hypertension, hyperlipidemia, BPH, anxiety, hypothyroidism, recent COVID-19 infection requiring prolonged ICU hospitalization with placement of an indwelling Frazier catheter presents for Frazier catheter problems. Patient has had the catheter for a few weeks. He notes that he was seen here a little over a week ago for hematuria. He notes that he has had on and off hematuria ever since. Tonight he began to experience pain in his penis roughly 2 hours prior to arrival. He notes that his catheter is still draining. He denies any abdominal pain, nausea, vomiting, fevers. He does note that he finished a course of Cipro recently. He does have follow-up with urology in a couple of weeks. bladder region Pain Score (Numeric/FACES): 8 - Related Data Allergies Allergy/AdvReac Type Severity Reaction Status Date / Time Penicillins Allergy Swelling Verified 07/05/20 19:09 shellfish derived Allergy Airway Verified 07/05/20 19:09 Tightness tetanus immune globulin Allergy Itching Verified 07/05/20 19:09 Home Meds: Home Meds Levothyroxine [Synthroid] 100 mcg PO DAILY 12/04/13 [History] Metoprolol Succinate 25 mg PO DAILY 12/04/13 [History] Simvastatin 40 tab PO DAILY 12/04/13 [History] Tamsulosin HCl 0.4 mg PO DAILY 12/04/13 [History] Sennosides/Docusate Sodium [Stool Softener] 1 tab PO DAILY 08/01/14 [History] Gabapentin [Neurontin] 300 mg PO BID 03/11/16 [History] Isosorbide Mononitrate [Isosorbide Mononitrate ER] 30 mg PO DAILY 03/11/16 [History] Finasteride 5 mg PO DAILY 10/02/19 [History] Nitroglycerin 0.4 mg SL .Q5MIN PRN MDD 3 TABLETS 10/03/19 [History] metFORMIN HCl [Metformin HCl ER] 500 mg PO DAILY 10/03/19 [History] Allopurinol [Zyloprim] 100 mg PO DAILY 03/27/20 [History] Multivitamin 1 tab PO DAILY 03/27/20 [History] LORazepam [Ativan] 0.5 mg PO BEDTIME PRN #10 tablet 03/31/20 [Rx] LORazepam [Lorazepam] 2 mg IV ONETIME PRN #2 ml 04/03/20 [Rx] Miconazole [Miconazole 2% Crm] 1 gm TOP BID #1 tube 07/05/20 [Rx] Rivaroxaban [Xarelto] mg PO DAILY 07/05/20 [History] Past Medical History HEENT History: Reports: Hard of Hearing Other HEENT History: wears glasses, has upper and lower dentures, has bilateral hearing aides Cardiovascular History: Reports: High Cholesterol, Hypertension Respiratory History: Reports: Sleep Apnea Other Respiratory History: does NOT use CPAP; COVID 19 Gastrointestinal History: Reports: Colon Polyp Genitourinary History: Reports: Prostate Disorder Musculoskeletal History: Reports: Fracture Other Musculoskeletal History: fingers Neurological History: Reports: Neuropathy, Peripheral Psychiatric History: Reports: None Endocrine/Metabolic History: Reports: Diabetes, Type II, Hypothyroidism, Obesity/BMI 30+ Other Endocrine/Metabolic History: takes Metformin for diabetes Hematologic History: Reports: Blood Transfusion(s) Immunologic History: Reports: None Oncologic (Cancer) History: Reports: None Dermatologic History: Reports: None - Infectious Disease History Infectious Disease History: Reports: Chicken Pox, Measles, Mumps - Past Surgical History Head Surgeries/Procedures: Reports: None HEENT Surgical History: Reports: None Cardiovascular Surgical History: Reports: None Respiratory Surgical History: Reports: None GI Surgical History: Reports: Colonoscopy, Hernia, Abdominal Other GI Surgeries/Procedures: umbilical hernia Male Surgical History: Reports: None, Other (See Below) Endocrine Surgical History: Reports: None Neurological Surgical History: Reports: None Musculoskeletal Surgical History: Reports: None Other Musculoskeletal Surgeries/Procedures:: Dislocated left fingers Oncologic Surgical History: Reports: None Dermatological Surgical History: Reports: None Social & Family History - Family History Family Medical History: No Pertinent Family History - Caffeine Use Caffeine Use: Reports: None ED ROS GENERAL - Review of Systems Review Of Systems: Comprehensive ROS is negative, except as noted in HPI. ED EXAM, GENERAL - Physical Exam Exam: See Below Exam Limited By: No Limitations General Appearance: Alert, WD/WN, No Apparent Distress Throat/Mouth: Normal Voice, No Airway Compromise Head: Atraumatic, Normocephalic Respiratory/Chest: No Respiratory Distress, Lungs Clear, Normal Breath Sounds, No Accessory Muscle Use Cardiovascular: Normal Peripheral Pulses, Regular Rate, Rhythm GI/Abdominal: Soft, Non-Tender (Male) Exam: Other (Frazier catheter in place draining [employer] colored urine, white plaques consistent with alexsander balanitis ) Extremities: Normal Inspection Neurological: Alert Psychiatric: Normal Affect, Normal Mood Skin Exam: Warm, Dry, Intact, Normal Color Course - Vital Signs Last Recorded V/S: Last Vital Signs Temp 97.0 F 07/05/20 19:09 Pulse 91 07/05/20 19:09 Resp 20 07/05/20 19:09 BP 158/74 H 07/05/20 19:09 Pulse Ox 96 07/05/20 19:09 - Orders/Labs/Meds Orders: Active Orders 24 hr Category Date Time Status Insert Frazier Catheter [Insert Urinary Catheter] [OM.PC] Care 07/05/20 19:22 Ordered Stat Urinary Catheter Assessment [RC] ASDIRECTED Care 07/05/20 19:22 Active CULTURE URINE [RM] Stat Lab 07/05/20 19:50 Received Labs: Laboratory Tests 07/05/20 07/05/20 07/05/20 Range/Units 19:50 19:57 19:57 WBC 7.39 (4.0-11.0) K/uL RBC 3.90 L (4.50-5.90) M/uL Hgb 12.5 L (13.0-17.0) g/dL Hct 38.1 (38.0-50.0) % MCV 97.7 (80.0-98.0) fL MCH 32.1 H (27.0-32.0) pg MCHC 32.8 (31.0-37.0) g/dL RDW Std Deviation 51.4 (28.0-62.0) fl RDW Coeff of Florence 14 (11.0-15.0) % Plt Count 237 (150-400) K/uL MPV 9.10 (7.40-12.00) fL Neut % (Auto) 55.8 (48.0-80.0) % Lymph % (Auto) 30.7 (16.0-40.0) % Hardin % (Auto) 10.4 (0.0-15.0) % Eos % (Auto) 2.7 (0.0-7.0) % Baso % (Auto) 0.4 (0.0-1.5) % Neut # (Auto) 4.1 (1.4-5.7) K/uL Lymph # (Auto) 2.3 (0.6-2.4) K/uL Hardin # (Auto) 0.8 (0.0-0.8) K/uL Eos # (Auto) 0.2 (0.0-0.7) K/uL Baso # (Auto) 0.0 (0.0-0.1) K/uL Nucleated RBC % 0.0 /100WBC Nucleated RBCs # 0 K/uL Sodium 137 (136-148) mmol/L Potassium 4.1 (3.5-5.1) mmol/L Chloride 105 (98-107) mmol/L Carbon Dioxide 22.6 (21.0-32.0) mmol/L BUN 17 (7.0-18.0) mg/dL Creatinine 0.8 (0.8-1.3) mg/dL Est Cr Clr Drug Dosing 84.91 mL/min Estimated GFR (MDRD) > 60.0 ml/min Glucose 165 H (74-106) mg/dL Calcium 8.9 (8.5-10.1) mg/dL Urine Color ENRIQUETA Urine Appearance BLOODY Urine pH 6.5 (5.0-8.0) Ur Specific Sundown 1.025 (1.001-1.035) Urine Protein 30 H (NEGATIVE) mg/dL Urine Glucose (UA) NEGATIVE (NEGATIVE) mg/dL Urine Ketones NEGATIVE (NEGATIVE) mg/dL Urine Occult Blood LARGE H (NEGATIVE) Urine Nitrite POSITIVE H (NEGATIVE) Urine Bilirubin SMALL H (NEGATIVE) Urine Urobilinogen 1.0 (<2.0) EU/dL Ur Leukocyte Esterase TRACE H (NEGATIVE) Urine RBC TOO NUMEROUS TO CT (0-2/HPF) Urine WBC 0-3 (0-5/HPF) Ur Epithelial Cells RARE (NONE-FEW) Urine Bacteria 1+ H (NEGATIVE) - Re-Assessments/Exams Free Text/Narrative Re-Assessment/Exam: 07/05/20 19:25 Will change Frazier catheter for three-way irrigation and irrigate the bladder. Will send urinalysis to look for signs of infection. Will get basic labs to ensure no EDGARDO. 07/05/20 19:37 We will give methimazole for Alexsander balanitis. 07/05/20 19:59 Three-way irrigation catheter was placed without complications. Patient immediately began draining dark urine. I suspect patient's pain is likely secondary to his Alexsander infection rather than any problems with the catheter. We will follow up basic labs including renal function as well as a urinalysis. 07/05/20 20:41 Labs are unremarkable aside from hematuria and nitrates in the urine. Culture is sent although will defer antibiotics as patient recently finished a course of ciprofloxacin and has no white blood cells in his urine. Will discharge with Frazier leg bag and recommend follow-up with urology. Will send prescription for antifungal for Alexsander balanitis. Departure - Departure Time of Disposition: 20:42 Disposition: Home, Self-Care 01 Condition: Good Clinical Impression: Candidal balanitis Frazier catheter problem Qualifiers: Encounter type: initial encounter Qualified Code(s): T83.9XXA - Unspecified complication of genitourinary prosthetic device, implant and graft, initial encounter Hematuria Qualifiers: Hematuria type: unspecified type Qualified Code(s): R31.9 - Hematuria, unspecified - Discharge Information Prescriptions: Miconazole [Miconazole 2% Crm] 1 gm TOP BID #1 tube Instructions: Balanitis, Indwelling Urinary Catheter Care, Adult Referrals: PCP,None [Primary Care Provider] - Forms: ED Department Discharge Additional Instructions: The following information is given to patients seen in the emergency department who are being discharged to home. This information is to outline your options for follow-up care. We provide all patients seen in our emergency department with a follow-up referral. The need for follow-up, as well as the timing and circumstances, are variable depending upon the specifics of your emergency department visit. If you don't have a primary care physician on staff, we will provide you with a referral. We always advise you to contact your personal physician following an emergency department visit to inform them of the circumstance of the visit and for follow-up with them and/or the need for any referrals to a consulting specialist. The emergency department will also refer you to a specialist when appropriate. This referral assures that you have the opportunity for follow-up care with a specialist. All of these measure are taken in an effort to provide you with optimal care, which includes your follow-up. Under all circumstances we always encourage you to contact your private physician who remains a resource for coordinating your care. When calling for follow-up care, please make the office aware that this follow-up is from your recent emergency room visit. If for any reason you are refused follow-up, please contact the [facility] Emergency Department at and asked to speak to the emergency department charge nurse. Please follow up with your primary care physician. If you do not have a primary care physician, see below: [facility] [address] [place] [id number] My [facility] [address] [place] [address] [facility] [address] [place] [id number] Sepsis Event Note (ED) - Focused Exam Vital Signs: Vital Signs Temp Pulse Resp BP Pulse Ox 07/05/20 19:09 97.0 F 91 20 158/74 H 96 - My Orders Last 24 Hours: My Active Orders 07/05/20 19:22 Insert Frazier Catheter [Insert Urinary Catheter] [OM.PC] Stat Urinary Catheter Assessment [RC] ASDIRECTED 07/05/20 19:50 CULTURE URINE [RM] Stat - Assessment/Plan Last 24 Hours: My Active Orders 07/05/20 19:22 Insert Frazier Catheter [Insert Urinary Catheter] [OM.PC] Stat Urinary Catheter Assessment [RC] ASDIRECTED 07/05/20 19:50 CULTURE URINE [RM] Stat
[2020-07-05 19:12] VITALS: BP 158/74; PULSE 91
[2020-07-05] MEDS ORDERED: Clotrimazole 1% Crm 30 GM Tube TOP STA (19:35)
[2020-07-05] MEDS ORDERED: Miconazole 2% Crm 30 GM Tube TOP STA (20:21)
[2020-07-05 20:30] LABS: BLOOD UREA NITROGEN,BUN 17 mg/dL (7.0-18.0); CARBON DIOXIDE,CO2 22.6 mmol/L (21.0-32.0); CHLORIDE,CL 105 mmol/L (98-107); GLUCOSE RANDOM 165 mg/dL (74-106); POTASSIUM,K 4.1 mmol/L (3.5-5.1); SODIUM,NA 137 mmol/L (136-148)
[2020-07-05] MEDS ORDERED: Miconazole 2% Vaginal Crm 45 GM Tube TOP SCH (20:54)
== END 2020-07-05 21:15 | disposition home or self-care (01) ==
LOC: MW.ED 18:53
DX: T83.9XXA Unspecified complication of genitourinary prosthetic device, implant and graft, initial encounter (principal); R31.9 Hematuria, unspecified; B37.42 Candidal balanitis; E78.00 Pure hypercholesterolemia, unspecified; I10 Essential (primary) hypertension; N42.9 Disorder of prostate, unspecified; E03.9 Hypothyroidism, unspecified; E66.9 Obesity, unspecified; E11.42 Type 2 diabetes mellitus with diabetic polyneuropathy; Z88.0 Allergy status to penicillin; Z91.013 Allergy to seafood; Z88.7 Allergy status to serum and vaccine; Z79.84 Long term (current) use of oral hypoglycemic drugs
CPT/HCPCS: 36415; 51702; 80048; 81001; 85025; 87086; 87088; 87186; 99283; A9270

== ENCOUNTER 2020-07-08 09:51 | Emergency (ER) | payer MEDICARE, OTHER ==
[2020-07-08] MEDS ORDERED: Lidocaine 2% Jelly 30 ML Tube MUCMEM STA (12:37)
--- NOTE | 2020-07-08 12:44 | EDM.PDOC ---
ED HPI GENERAL MEDICAL PROBLEM - General Chief Complaint: Genitourinary Problem Stated Complaint: PAIN W CATHETER Time Seen by Provider: 07/08/20 10:01 - History of Present Illness INITIAL COMMENTS - FREE TEXT/NARRATIVE: History of present illness: Patient had a prolonged hospitalization after COVID-19. During that time his bladder had a Marc. He had a Murray catheter placed and he has had it changed out when the time was appropriate to change it. The patient has now had his Murray catheter changed 3 days ago. Now his meatus is terribly sore. He is on treatment for an infection in the area of the meatus. But now he has sharp severe pain especially whenever there is any movement of his thigh or movement of his catheter. [] Review of systems: As per history of present illness and below otherwise all systems reviewed and negative. Past medical history: As per history of present illness and as reviewed below otherwise noncontributory. Surgical history: As per history of present illness and as reviewed below otherwise noncontributory. Social history: No reported history of drug or alcohol abuse. Family history: As per history of present illness and as reviewed below otherwise noncontributory. Physical exam: Constitutional - well developed, well-nourished and in no acute distress HEENT - normocephalic, no evidence of trauma - external nose and mouth normal - no mass in neck and no JVD - mucosae moist EYES - full EOM, PERRL, no icterus - no evidence of inflammation, injection, or drainage Respiratory - no respiratory distress, equal bilateral expansion Musculoskeletal no gross deformity of long bones or joints - no tenderness, swelling or edema You the patient is a normal uncircumcised adult male genitalia. At the meatus there is severe tenderness in this and some minor erosion where the catheter rubs. The patient does not any obvious bleeding or purulent discharge. The catheter bunches up at that area and puts pressure on the meatus because of the proximity of the attachment to the left thigh. Neurologic - Alert and oriented times four - CN II-XII grossly intact - motor sensory and coordination symmetrically normal Psychiatric - appropriate mood and affect with normal thought content Hematologic - No petechiae or purpura - mucosa appropriate color and sclera not pale - normal nail bed color and refill Integument - no rash or evidence of trauma - normal turgor Diagnostics: [] Therapeutics: [] Impression: [] Plan: [] Definitive disposition and diagnosis as appropriate pending reevaluation and review of above. - Related Data Allergies Allergy/AdvReac Type Severity Reaction Status Date / Time Penicillins Allergy Swelling Verified 07/05/20 19:09 shellfish derived Allergy Airway Verified 07/05/20 19:09 Tightness tetanus immune globulin Allergy Itching Verified 07/05/20 19:09 Home Meds: Home Meds Levothyroxine [Synthroid] 100 mcg PO DAILY 12/04/13 [History] Metoprolol Succinate 25 mg PO DAILY 12/04/13 [History] Simvastatin 40 tab PO DAILY 12/04/13 [History] Tamsulosin HCl 0.4 mg PO DAILY 12/04/13 [History] Sennosides/Docusate Sodium [Stool Softener] 1 tab PO DAILY 08/01/14 [History] Gabapentin [Neurontin] 300 mg PO BID 03/11/16 [History] Isosorbide Mononitrate [Isosorbide Mononitrate ER] 30 mg PO DAILY 03/11/16 [History] Finasteride 5 mg PO DAILY 10/02/19 [History] Nitroglycerin 0.4 mg SL .Q5MIN PRN MDD 3 TABLETS 10/03/19 [History] metFORMIN HCl [Metformin HCl ER] 500 mg PO DAILY 10/03/19 [History] Allopurinol [Zyloprim] 100 mg PO DAILY 03/27/20 [History] Multivitamin 1 tab PO DAILY 03/27/20 [History] LORazepam [Ativan] 0.5 mg PO BEDTIME PRN #10 tablet 03/31/20 [Rx] LORazepam [Lorazepam] 2 mg IV ONETIME PRN #2 ml 04/03/20 [Rx] Miconazole [Miconazole 2% Crm] 1 gm TOP BID #1 tube 07/05/20 [Rx] Rivaroxaban [Xarelto] mg PO DAILY 07/05/20 [History] Lidocaine 2% [Lidocaine 2% Jelly] 20 ml TOP TID PRN #1 urojet 07/08/20 [Rx] Past Medical History HEENT History: Reports: Hard of Hearing Other HEENT History: wears glasses, has upper and lower dentures, has bilateral hearing aides Cardiovascular History: Reports: High Cholesterol, Hypertension Respiratory History: Reports: Sleep Apnea Other Respiratory History: does NOT use CPAP; COVID 19 Gastrointestinal History: Reports: Colon Polyp Genitourinary History: Reports: Prostate Disorder Musculoskeletal History: Reports: Fracture Other Musculoskeletal History: fingers Neurological History: Reports: Neuropathy, Peripheral Psychiatric History: Reports: None Endocrine/Metabolic History: Reports: Diabetes, Type II, Hypothyroidism, Obesity/BMI 30+ Other Endocrine/Metabolic History: takes Metformin for diabetes Hematologic History: Reports: Blood Transfusion(s) Immunologic History: Reports: None Oncologic (Cancer) History: Reports: None Dermatologic History: Reports: None - Infectious Disease History Infectious Disease History: Reports: Chicken Pox, Measles, Mumps - Past Surgical History Head Surgeries/Procedures: Reports: None HEENT Surgical History: Reports: None Cardiovascular Surgical History: Reports: None Respiratory Surgical History: Reports: None GI Surgical History: Reports: Colonoscopy, Hernia, Abdominal Other GI Surgeries/Procedures: umbilical hernia Male Surgical History: Reports: None, Other (See Below) Other Male Surgeries/Procedures: with indwelling murray catheter since [facility] admission, pt states "they tried to wean me from it but I dont have bladder control" Endocrine Surgical History: Reports: None Neurological Surgical History: Reports: None Musculoskeletal Surgical History: Reports: None Other Musculoskeletal Surgeries/Procedures:: Dislocated left fingers Oncologic Surgical History: Reports: None Dermatological Surgical History: Reports: None Social & Family History - Family History Family Medical History: No Pertinent Family History - Caffeine Use Caffeine Use: Reports: None ED ROS GENERAL - Review of Systems Review Of Systems: Comprehensive ROS is negative, except as noted in HPI. ED EXAM, GENERAL - Physical Exam Exam: See Below Free Text/Narrative:: My physical exam is in the HPI Course - Vital Signs Text/Narrative:: Meatus at the area where the catheter was putting pressure was painted with lidocaine viscus. Catheter placed on the other leg and placed in a position that would not cause a kink and pressure on the internal meatus. Last Recorded V/S: Last Vital Signs Temp 36.2 C 07/08/20 11:11 Pulse 71 07/08/20 11:11 Resp 17 07/08/20 11:11 BP 123/70 07/08/20 11:11 Pulse Ox 97 07/08/20 11:11 - Orders/Labs/Meds Orders: Active Orders 24 hr Category Date Time Status Communication Order [RC] STAT Care 07/08/20 12:36 Active Meds: Medications Discontinued Medications Generic Name Dose Route Start Last Admin Trade Name Jose Martin PRN Reason Stop Dose Admin Lidocaine HCl Confirm 07/08/20 13:03 07/08/20 13:08 Lidocaine 2% Viscous Solution 15 Ml Cup Administered 07/08/20 13:04 15 ml Dose Administration 15 ml .ROUTE .STK-MED ONE Lidocaine HCl 15 ml 07/08/20 13:11 07/08/20 13:12 Lidocaine 2% Viscous Solution 15 Ml Cup PO 07/08/20 13:12 Not Given ONETIME ONE Departure - Departure Time of Disposition: 13:13 Disposition: Home, Self-Care 01 Condition: Good Clinical Impression: Urethral erosion by catheter - Discharge Information Instructions: Indwelling Urinary Catheter Care, Adult Referrals: PCP,None [Primary Care Provider] - Forms: ED Department Discharge Additional Instructions: [facility] - Urology [address] [place] [id number] The following information is given to patients seen in the emergency department who are being discharged to home. This information is to outline your options for follow-up care. We provide all patients seen in our emergency department with a follow-up referral. The need for follow-up, as well as the timing and circumstances, are variable depending upon the specifics of your emergency department visit. If you don't have a primary care physician on staff, we will provide you with a referral. We always advise you to contact your personal physician following an emergency department visit to inform them of the circumstance of the visit and for follow-up with them and/or the need for any referrals to a consulting specialist. The emergency department will also refer you to a specialist when appropriate. This referral assures that you have the opportunity for follow-up care with a specialist. All of these measure are taken in an effort to provide you with optimal care, which includes your follow-up. Under all circumstances we always encourage you to contact your private physician who remains a resource for coordinating your care. When calling for follow-up care, please make the office aware that this follow-up is from your recent emergency room visit. If for any reason you are refused follow-up, please contact the [facility] Emergency Department at and asked to speak to the emergency department charge nurse. Sepsis Event Note (ED) - Evaluation Sepsis Screening Result: No Definite Risk - Focused Exam Vital Signs: Vital Signs Temp Pulse Resp BP Pulse Ox 07/08/20 11:11 36.2 C 71 17 123/70 97 - My Orders Last 24 Hours: My Active Orders 07/08/20 12:36 Communication Order [RC] STAT - Assessment/Plan Last 24 Hours: My Active Orders 07/08/20 12:36 Communication Order [RC] STAT
[2020-07-08] MEDS ORDERED: Lidocaine 2% Viscous Solution 15 ML Cup ONE (13:03)
[2020-07-08] MEDS ORDERED: Lidocaine 2% Viscous Solution 15 ML Cup PO ONE (13:11)
[2020-07-08 13:27] VITALS: BP 113/70; PULSE 75
== END 2020-07-08 13:26 | disposition home or self-care (01) ==
LOC: MW.ED 09:51
DX: T83.098A Other mechanical complication of other urinary catheter, initial encounter (principal); N36.8 Other specified disorders of urethra; E78.00 Pure hypercholesterolemia, unspecified; I10 Essential (primary) hypertension; N42.9 Disorder of prostate, unspecified; E11.42 Type 2 diabetes mellitus with diabetic polyneuropathy; E03.9 Hypothyroidism, unspecified; E66.9 Obesity, unspecified; Z79.84 Long term (current) use of oral hypoglycemic drugs; Z88.0 Allergy status to penicillin; Z91.013 Allergy to seafood; Z88.7 Allergy status to serum and vaccine; Z79.899 Other long term (current) drug therapy
CPT/HCPCS: 99283; A9270

== ENCOUNTER 2020-07-13 16:30 | Emergency (ER) | payer MEDICARE, OTHER ==
[2020-07-13 16:44] VITALS: BP 143/86; PULSE 77
--- NOTE | 2020-07-13 16:45 | EDM.PDOC ---
ED HPI GENERAL MEDICAL PROBLEM - General Chief Complaint: Genitourinary Problem Stated Complaint: CATHETER ISSUE Time Seen by Provider: 07/13/20 16:30 Source of Information: Reports: Patient History Limitations: Reports: No Limitations - History of Present Illness INITIAL COMMENTS - FREE TEXT/NARRATIVE: HISTORY AND PHYSICAL: History of present illness: Patient is a 74-year-old male who presents to the emergency room with complaints of Murray catheter leaking. Patient had a catheter placed after prolonged hospitalization due to COVID-19. She does do Murray care at home and states he had tried to wean him off of the Murray but he has poor bladder control. This morning he has had leaking around the connection point from the catheter to the collection bag. He denies any injury, trauma or tugging of the Murray itself. Continues to drain adequate amounts of clear yellow urine. Patient denies any fever, chills, headache, change in vision, syncope or near syncope. Denies any chest pain, back pain, shortness of breath or cough. Denies any abdominal pain, nausea, vomiting, diarrhea, constipation or dysuria. Has not noted any blood in urine or stool. Patient has been eating and drinking appropriately. Patient was seen in the ED 5 days ago for penile meatus irritation from the catheter. States he was given a cream which has helped his discomfort greatly. He has no concerns regarding the meatus, urinary output or dysuria. Review of systems: As per history of present illness and below otherwise all systems reviewed and negative. Past medical history: As per history of present illness and as reviewed below otherwise noncontributory. Surgical history: As per history of present illness and as reviewed below otherwise noncontributory. Social history: See social history for further information Family history: As per history of present illness and as reviewed below otherwise noncontributory. Physical exam: General: Well developed and well nourished 74-year-old male. Alert and orientated x 3. Nontoxic in appearance and in no acute distress. Vital signs are stable and have been reviewed by me. Nursing notes were reviewed. HEENT: Atraumatic, normocephalic, pupils equal and reactive bilaterally, negative for conjunctival pallor or scleral icterus, mucous membranes moist, trachea midline. No drooling or trismus noted. No meningeal signs. No hot potato voice noted. Lungs: Clear to auscultation bilaterally. No wheezes, rales, or rhonchi. Chest nontender. Normal work of breathing, no accessory muscles used. Heart: S1S2, regular rate and rhythm without overt murmur, gallops, or rubs. No JVD. No peripheral edema Abdomen: Soft, nondistended, nontender. Normoactive bowel sounds. Negative for masses or costovertebral tenderness. Pelvis: Stable nontender. Genitourinary/Rectal: Uncircumcised. Minimal irritation noted at meatus, no open sores. Murray intact and draining clear yellow urine. Skin: Intact, warm, dry. No lesions or rashes noted. Hematologic: No petechiae or purpra. Mucosa appropriate color and normal nail bed color and refill. Extremities: Atraumatic, moves all extremities per self without difficulty or deficits, negative for cords or calf pain. Neurovascular unremarkable. Neuro: Awake, alert, oriented. Cranial nerves II through XII unremarkable. Cerebellum unremarkable. Motor and sensory unremarkable throughout. Exam no nfocal. Psychiatric: Mood and affect are appropriate. Normal thought process. Answering questions appropriately. Notes: *This patient was seen and evaluated during the 2019 SARS-CoV-2 [facility] pandemic period. Community viral transmission is ongoing at time of this encounter and the emergency department is operating under pandemic response procedures. Murray bag and tubing was replaced. Patient was allowed to sit with new product and it is adequately draining without leakage. Patient is satisfied and ready for discharge. Patient does not have any urinary concerns and does not want any further of a workup (labs). I have talked with the patient about today's findings, in addition to providing specific details for plan of care. Reassessment at the time of disposition demonstrates that the patient is in no acute distress. The patient is stable for discharge, counseling was provided and we discussed in great detail signs and symptoms that would prompt them to return to the Emergency Department. Medication, follow up and supportive care measures were reviewed and discussed. Voices understanding and is agreeable to plan of care. Denies any further questions or concerns at this time. Diagnostics: None Therapeutics: Murray assessment/tubing change Prescription: None Impression: Murray catheter problem Plan: 1. You were evaluated today on an emergent basis. Your murray catheter bag was replaced. 2. You can alternate Tylenol and ibuprofen as needed for pain and fever management. 3. We encourage you to follow up with Urology, Dr Barker, for re-evaluation and further care/management. 4. If your symptoms should worsen, new symptoms develop or any of the signs and symptoms we discussed should arise please return to the emergency room or call 911 (if needed). Definitive disposition and diagnosis as appropriate pending reevaluation and review of above. - Related Data Allergies Allergy/AdvReac Type Severity Reaction Status Date / Time Penicillins Allergy Swelling Verified 07/13/20 23:37 shellfish derived Allergy Airway Verified 07/13/20 23:37 Tightness tetanus immune globulin Allergy Itching Verified 07/13/20 23:37 Home Meds: Home Meds Levothyroxine [Synthroid] 100 mcg PO .6 DAYS A WEEK 12/04/13 [History] Metoprolol Succinate 25 mg PO DAILY 12/04/13 [History] Simvastatin 40 tab PO BEDTIME 12/04/13 [History] Tamsulosin HCl 0.4 mg PO DAILY 12/04/13 [History] Isosorbide Mononitrate [Isosorbide Mononitrate ER] 30 mg PO DAILY 03/11/16 [History] Finasteride 5 mg PO DAILY 10/02/19 [History] Nitroglycerin 0.4 mg SL .Q5MIN PRN MDD 3 TABLETS 10/03/19 [History] metFORMIN HCl [Metformin HCl ER] 1,000 mg PO DAILY 10/03/19 [History] Allopurinol [Zyloprim] 100 mg PO DAILY 03/27/20 [History] Multivitamin 1 tab PO DAILY 03/27/20 [History] Miconazole [Miconazole 2% Crm] 1 gm TOP BID #1 tube 07/05/20 [Rx] Rivaroxaban [Xarelto] 20 mg PO DAILY 07/05/20 [History] Lidocaine 2% [Lidocaine 2% Jelly] 20 ml TOP TID PRN #1 urojet 07/08/20 [Rx] Gabapentin [Neurontin] 400 mg PO TID 07/13/20 [History] Levothyroxine 150 mcg PO .ONE DAY A WEEK 07/13/20 [History] Past Medical History HEENT History: Reports: Hard of Hearing Other HEENT History: wears glasses, has upper and lower dentures, has bilateral hearing aides Cardiovascular History: Reports: High Cholesterol, Hypertension Respiratory History: Reports: Sleep Apnea Other Respiratory History: does NOT use CPAP; intubated for COVID 19 on Mar 2020 Gastrointestinal History: Reports: Colon Polyp Genitourinary History: Reports: Prostate Disorder, Other (See Below) Other Genitourinary History: with indwellin catheter Musculoskeletal History: Reports: Fracture Other Musculoskeletal History: fingers Neurological History: Reports: Neuropathy, Peripheral Psychiatric History: Reports: None Endocrine/Metabolic History: Reports: Diabetes, Type II, Hypothyroidism, Obesity/BMI 30+ Other Endocrine/Metabolic History: takes Metformin for diabetes Hematologic History: Reports: Blood Transfusion(s) Immunologic History: Reports: None Oncologic (Cancer) History: Reports: None Dermatologic History: Reports: None - Infectious Disease History Infectious Disease History: Reports: Chicken Pox, Measles, Mumps - Past Surgical History Head Surgeries/Procedures: Reports: None HEENT Surgical History: Reports: None Cardiovascular Surgical History: Reports: None Respiratory Surgical History: Reports: None GI Surgical History: Reports: Colonoscopy, Hernia, Abdominal Other GI Surgeries/Procedures: umbilical hernia Male Surgical History: Reports: None, Other (See Below) Other Male Surgeries/Procedures: with indwelling murray catheter since [facility] admission, pt states "they tried to wean me from it but I dont have bladder control" Endocrine Surgical History: Reports: None Neurological Surgical History: Reports: None Musculoskeletal Surgical History: Reports: None Other Musculoskeletal Surgeries/Procedures:: Dislocated left fingers Oncologic Surgical History: Reports: None Dermatological Surgical History: Reports: None Social & Family History - Family History Family Medical History: No Pertinent Family History - Caffeine Use Caffeine Use: Reports: None ED ROS GENERAL - Review of Systems Review Of Systems: Comprehensive ROS is negative, except as noted in HPI. ED EXAM, GI/ABD - Physical Exam Exam: See Below (See dictation) Course - Vital Signs Last Recorded V/S: Last Vital Signs Temp 98 F 07/13/20 16:42 Pulse 77 07/13/20 16:42 Resp 16 07/13/20 16:42 BP 143/86 H 07/13/20 16:42 Pulse Ox 95 07/13/20 16:42 Departure - Departure Time of Disposition: 12:21 Disposition: Home, Self-Care 01 Clinical Impression: Murray catheter problem Qualifiers: Encounter type: initial encounter Qualified Code(s): T83.9XXA - Unspecified complication of genitourinary prosthetic device, implant and graft, initial encounter - Discharge Information Instructions: Indwelling Urinary Catheter Care, Adult, [id number] Referrals: Livan Gold MD [Primary Care Provider] - Forms: ED Department Discharge Additional Instructions: The following information is given to patients seen in the emergency department who are being discharged to home. This information is to outline your options for follow-up care. We provide all patients seen in our emergency department with a follow-up referral. The need for follow-up, as well as the timing and circumstances, are variable depending upon the specifics of your emergency department visit. If you don't have a primary care physician on staff, we will provide you with a referral. We always advise you to contact your personal physician following an emergency department visit to inform them of the circumstance of the visit and for follow-up with them and/or the need for any referrals to a consulting specialist. The emergency department will also refer you to a specialist when appropriate. This referral assures that you have the opportunity for follow-up care with a specialist. All of these measure are taken in an effort to provide you with optimal care, which includes your follow-up. Under all circumstances we always encourage you to contact your private physician who remains a resource for coordinating your care. When calling for follow-up care, please make the office aware that this follow-up is from your recent emergency room visit. If for any reason you are refused follow-up, please contact the [facility] Emergency Department at and asked to speak to the emergency department charge nurse. [facility] - Urology [address] [place] [id number] Thank you for choosing the [facility] emergency department in [place] for your medical needs today. It was a pleasure caring for you. Today you were seen in the emergency department for murray catheter leaking. 1. You were evaluated today on an emergent basis. Your murray catheter bag was replaced. 2. You can alternate Tylenol and ibuprofen as needed for pain and fever management. 3. We encourage you to follow up with Urology, Dr Barker, for re-evaluation and further care/management. 4. If your symptoms should worsen, new symptoms develop or any of the signs and symptoms we discussed should arise please return to the emergency room or call 911 (if needed).
== END 2020-07-13 17:25 | disposition home or self-care (01) ==
LOC: MW.ED 16:30
DX: T83.038A Leakage of other urinary catheter, initial encounter (principal); E78.00 Pure hypercholesterolemia, unspecified; I10 Essential (primary) hypertension; E11.42 Type 2 diabetes mellitus with diabetic polyneuropathy; E03.9 Hypothyroidism, unspecified; E66.9 Obesity, unspecified; Z68.30 Body mass index [BMI] 30.0-30.9, adult; Z88.0 Allergy status to penicillin; Z91.013 Allergy to seafood; Z88.7 Allergy status to serum and vaccine; Z79.899 Other long term (current) drug therapy; Z79.84 Long term (current) use of oral hypoglycemic drugs
CPT/HCPCS: 99283

== ENCOUNTER 2020-07-13 23:18 | Emergency (ER) | payer MEDICARE, OTHER ==
[2020-07-13 23:41] VITALS: BP 130/70; PULSE 96
--- NOTE | 2020-07-14 00:09 | EDM.PDOC ---
ED HPI GENERAL MEDICAL PROBLEM - General Chief Complaint: Genitourinary Problem Stated Complaint: UGOEDER STILL LEAKING Time Seen by Provider: 07/13/20 23:41 - History of Present Illness INITIAL COMMENTS - FREE TEXT/NARRATIVE: History of present illness: [] Is here because he not making urine through his catheter into the bag and he is leaking out of another port. He has a three-way catheter and he has lost the cap on one of the lumens that goes into his bladder. Urine comes out of it and he is clamped it with a temporary clamp. He said he was urinating out of that other tube but earlier today when he came in to have his catheter bag replaced because of a leak he went home with it Over the second lumen. He was making urine fine at that time. Review of systems: As per history of present illness and below otherwise all systems reviewed and negative. Past medical history: As per history of present illness and as reviewed below otherwise noncontributory. Surgical history: As per history of present illness and as reviewed below otherwise noncontributory. Social history: No reported history of drug or alcohol abuse. Family history: As per history of present illness and as reviewed below otherwise noncon tributory. Physical exam: Constitutional - well developed, well-nourished and in no acute distress HEENT - normocephalic, no evidence of trauma - external nose and mouth normal - no mass in neck and no JVD - mucosae moist EYES - full EOM, PERRL, no icterus - no evidence of inflammation, injection, or drainage Respiratory - no respiratory distress, equal bilateral expansion -The patient has a three-way catheter in one of the lumens and goes into the bladder has. He has a clamp on it but when the clamps removed he probably makes urine. Musculoskeletal no gross deformity of long bones or joints - no tenderness, swelling or edema Neurologic - Alert and oriented times four - CN II-XII grossly intact - motor sensory and coordination symmetrically normal Psychiatric - appropriate mood and affect with normal thought content Hematologic - No petechiae or purpura - mucosa appropriate color and sclera not pale - normal nail bed color and refill Integument - no rash or evidence of trauma - normal turgor Diagnostics: [] Therapeutics: [] Impression: [] Plan: [] Definitive disposition and diagnosis as appropriate pending reevaluation and review of above. - Related Data Allergies Allergy/AdvReac Type Severity Reaction Status Date / Time Penicillins Allergy Swelling Verified 07/13/20 23:37 shellfish derived Allergy Airway Verified 07/13/20 23:37 Tightness tetanus immune globulin Allergy Itching Verified 07/13/20 23:37 Home Meds: Home Meds Levothyroxine [Synthroid] 100 mcg PO .6 DAYS A WEEK 12/04/13 [History] Metoprolol Succinate 25 mg PO DAILY 12/04/13 [History] Simvastatin 40 tab PO BEDTIME 12/04/13 [History] Tamsulosin HCl 0.4 mg PO DAILY 12/04/13 [History] Isosorbide Mononitrate [Isosorbide Mononitrate ER] 30 mg PO DAILY 03/11/16 [History] Finasteride 5 mg PO DAILY 10/02/19 [History] Nitroglycerin 0.4 mg SL .Q5MIN PRN MDD 3 TABLETS 10/03/19 [History] metFORMIN HCl [Metformin HCl ER] 1,000 mg PO DAILY 10/03/19 [History] Allopurinol [Zyloprim] 100 mg PO DAILY 03/27/20 [History] Multivitamin 1 tab PO DAILY 03/27/20 [History] Miconazole [Miconazole 2% Crm] 1 gm TOP BID #1 tube 07/05/20 [Rx] Rivaroxaban [Xarelto] 20 mg PO DAILY 07/05/20 [History] Lidocaine 2% [Lidocaine 2% Jelly] 20 ml TOP TID PRN #1 urojet 07/08/20 [Rx] Gabapentin [Neurontin] 400 mg PO TID 07/13/20 [History] Levothyroxine 150 mcg PO .ONE DAY A WEEK 07/13/20 [History] Past Medical History HEENT History: Reports: Hard of Hearing Other HEENT History: wears glasses, has upper and lower dentures, has bilateral hearing aides Cardiovascular History: Reports: High Cholesterol, Hypertension Respiratory History: Reports: Sleep Apnea Other Respiratory History: does NOT use CPAP; intubated for COVID 19 on Mar 2020 Gastrointestinal History: Reports: Colon Polyp Genitourinary History: Reports: Prostate Disorder, Other (See Below) Other Genitourinary History: with indwellin catheter Musculoskeletal History: Reports: Fracture Other Musculoskeletal History: fingers Neurological History: Reports: Neuropathy, Peripheral Psychiatric History: Reports: None Endocrine/Metabolic History: Reports: Diabetes, Type II, Hypothyroidism, Obesity/BMI 30+ Other Endocrine/Metabolic History: takes Metformin for diabetes Hematologic History: Reports: Blood Transfusion(s) Immunologic History: Reports: None Oncologic (Cancer) History: Reports: None Dermatologic History: Reports: None - Infectious Disease History Infectious Disease History: Reports: Chicken Pox, Measles, Mumps, Novel Coronavirus - Past Surgical History Head Surgeries/Procedures: Reports: None HEENT Surgical History: Reports: None Cardiovascular Surgical History: Reports: None Respiratory Surgical History: Reports: None GI Surgical History: Reports: Colonoscopy, Hernia, Abdominal Other GI Surgeries/Procedures: umbilical hernia Male Surgical History: Reports: None, Other (See Below) Other Male Surgeries/Procedures: with indwelling murray catheter since [facility] admission, pt states "they tried to wean me from it but I dont have bladder control" Endocrine Surgical History: Reports: None Neurological Surgical History: Reports: None Musculoskeletal Surgical History: Reports: None Other Musculoskeletal Surgeries/Procedures:: Dislocated left fingers Oncologic Surgical History: Reports: None Dermatological Surgical History: Reports: None Social & Family History - Family History Family Medical History: No Pertinent Family History - Caffeine Use Caffeine Use: Reports: Coffee - Recreational Drug Use Recreational Drug Use: No ED ROS GENERAL - Review of Systems Review Of Systems: Comprehensive ROS is negative, except as noted in HPI. ED EXAM, GENERAL - Physical Exam Exam: See Below Free Text/Narrative:: My physical exam is in the HPI Course - Vital Signs Text/Narrative:: We put a plug in the second lumen that comes from the bladder and he is draining urine into the bag properly now. Last Recorded V/S: Last Vital Signs Temp 36.7 C 07/13/20 23:38 Pulse 96 07/13/20 23:38 Resp 18 07/13/20 23:38 BP 130/70 07/13/20 23:38 Pulse Ox 96 07/13/20 23:38 Departure - Departure Time of Disposition: 00:21 Disposition: Home, Self-Care 01 Condition: Good Clinical Impression: Murray catheter problem Qualifiers: Encounter type: initial encounter Qualified Code(s): T83.9XXA - Unspecified complication of genitourinary prosthetic device, implant and graft, initial encounter - Discharge Information Instructions: Indwelling Urinary Catheter Care, Adult, [id number] Referrals: Livan Gold MD [Primary Care Provider] - Forms: ED Department Discharge Additional Instructions: [facility] - Urology [address] [place] [id number] The following information is given to patients seen in the emergency department who are being discharged to home. This information is to outline your options for follow-up care. We provide all patients seen in our emergency department with a follow-up referral. The need for follow-up, as well as the timing and circumstances, are variable depending upon the specifics of your emergency department visit. If you don't have a primary care physician on staff, we will provide you with a referral. We always advise you to contact your personal physician following an emergency department visit to inform them of the circumstance of the visit and for follow-up with them and/or the need for any referrals to a consulting specialist. The emergency department will also refer you to a specialist when appropriate. This referral assures that you have the opportunity for follow-up care with a specialist. All of these measure are taken in an effort to provide you with optimal care, which includes your follow-up. Under all circumstances we always encourage you to contact your private physician who remains a resource for coordinating your care. When calling for follow-up care, please make the office aware that this follow-up is from your recent emergency room visit. If for any reason you are refused follow-up, please contact the [facility] Emergency Department at and asked to speak to the emergency department charge nurse. Sepsis Event Note (ED) - Evaluation Sepsis Screening Result: No Definite Risk - Focused Exam Vital Signs: Vital Signs Temp Pulse Resp BP Pulse Ox 07/13/20 23:38 36.7 C 96 18 130/70 96
== END 2020-07-14 00:35 | disposition home or self-care (01) ==
LOC: MW.ED 23:18
DX: T83.038A Leakage of other urinary catheter, initial encounter (principal); E78.00 Pure hypercholesterolemia, unspecified; I10 Essential (primary) hypertension; E11.42 Type 2 diabetes mellitus with diabetic polyneuropathy; E03.9 Hypothyroidism, unspecified; E66.9 Obesity, unspecified; Z68.1 Body mass index [BMI] 19.9 or less, adult; Z86.16 Personal history of COVID-19; Z88.0 Allergy status to penicillin; Z91.013 Allergy to seafood; Z88.7 Allergy status to serum and vaccine; Z79.84 Long term (current) use of oral hypoglycemic drugs; Z79.01 Long term (current) use of anticoagulants; Z79.899 Other long term (current) drug therapy
CPT/HCPCS: 99283

== ENCOUNTER 2021-03-02 06:51 | Emergency (ER) | payer OTHER, MEDICARE ==
[2021-03-02] MEDS ORDERED: Sodium Chloride 0.9% 10 ML Syringe FLUSH PRN (07:30)
[2021-03-02] MEDS ORDERED: Sodium Chloride 0.9% 2.5 ML Syringe FLUSH PRN (07:30)
[2021-03-02] MEDS ORDERED: Sodium Chloride 0.9% 1,000 ML IV ONE ×2 (07:32→07:35)
[2021-03-02] MEDS ORDERED: Levofloxacin/Dextrose 5%-Water 750 MG in Premix Bag 1 BAG IV ONE (07:36)
--- NOTE | 2021-03-02 07:38 | EDM.PDOC ---
ED HPI GENERAL MEDICAL PROBLEM - General Chief Complaint: General Stated Complaint: vomiting body aches Time Seen by Provider: 03/02/21 06:54 - History of Present Illness INITIAL COMMENTS - FREE TEXT/NARRATIVE: History of present illness: [] The patient says he is got trouble breathing belly pain body aches headache and everything is positive according to him on the first talk but actually his cough is worse and he short of breath. He has a fever and feels feverish. He has had Covid in March last year and had a hard time was admitted for 2 weeks. Patient has severe COPD. Patient symptoms are moderately severe nothing makes them better and worse. He also has redness on the tip of his penis and the is applying athlete's foot medicine that was given to him. Review of systems: As per history of present illness and below otherwise all systems reviewed and negative. Past medical history: As per history of present illness and as reviewed below otherwise noncontributory. Surgical history: As per history of present illness and as reviewed below otherwise noncontributory. Social history: No reported history of drug or alcohol abuse. Family history: As per history of present illness and as reviewed below otherwise noncontributory. Physical exam: Constitutional - well developed, well-nourished and in no acute distress HEENT - normocephalic, no evidence of trauma - external nose and mouth normal - no mass in neck and no JVD - mucosae moist EYES - full EOM, PERRL, no icterus - no evidence of inflammation, injection, or drainage Respiratory - no respiratory distress, equal bilateral expansion, lungs diminished breath sounds throughout with prolonged expiratory phase and bothersome cough that interferes with his ability to talk well. Oxygen saturation 87% on room air-low Cardiovascular - Regular Rhythm with S1 and S2 appreciated and no murmur, gallop or rub. GI - abdomen soft without distension or organomegaly - normal bowel sounds - no guard or rebound Musculoskeletal no gross deformity of long bones or joints - no tenderness, swelling or edema Neurologic - Alert and oriented times four - CN II-XII grossly intact - motor sensory and coordination symmetrically normal -patient is uncircumcised and the glans is erythematous but there is no discharge. Psychiatric - appropriate mood and affect with normal thought content Hematologic - No petechiae or purpura - mucosa appropriate color and sclera not pale - normal nail bed color and refill Integument - no rash or evidence of trauma - normal turgor Diagnostics: [] Therapeutics: [] Impression: [] Plan: [] Definitive disposition and diagnosis as appropriate pending reevaluation and review of above. - Related Data Allergies Allergy/AdvReac Type Severity Reaction Status Date / Time Penicillins Allergy Swelling Verified 03/02/21 07:31 shellfish derived Allergy Airway Verified 03/02/21 07:31 Tightness tetanus immune globulin Allergy Itching Verified 03/02/21 07:31 Home Meds: Home Meds Levothyroxine [Synthroid] 100 mcg PO .6 DAYS A WEEK 12/04/13 [History] Metoprolol Succinate 25 mg PO DAILY 12/04/13 [History] Simvastatin 40 tab PO BEDTIME 12/04/13 [History] Tamsulosin HCl 0.4 mg PO DAILY 12/04/13 [History] Isosorbide Mononitrate [Isosorbide Mononitrate ER] 30 mg PO DAILY 03/11/16 [History] Finasteride 5 mg PO DAILY 10/02/19 [History] Nitroglycerin 0.4 mg SL .Q5MIN PRN MDD 3 TABLETS 10/03/19 [History] metFORMIN HCl [Metformin HCl ER] 1,000 mg PO DAILY 10/03/19 [History] Multivitamin 1 tab PO DAILY 03/27/20 [History] allopurinoL [Zyloprim] 100 mg PO DAILY 03/27/20 [History] Miconazole [Miconazole 2% Crm] 1 gm TOP BID #1 tube 07/05/20 [Rx] Rivaroxaban [Xarelto] 20 mg PO DAILY 07/05/20 [History] Gabapentin [Neurontin] 400 mg PO TID 07/13/20 [History] Levothyroxine 150 mcg PO .ONE DAY A WEEK 07/13/20 [History] levoFLOXacin [Levaquin] 750 mg PO DAILY #7 tab 03/02/21 [Rx] Past Medical History HEENT History: Reports: Hard of Hearing Other HEENT History: wears glasses, has upper and lower dentures, has bilateral hearing aides Cardiovascular History: Reports: High Cholesterol, Hypertension Respiratory History: Reports: Sleep Apnea Other Respiratory History: does NOT use CPAP; intubated for COVID 19 on Mar 2020 Gastrointestinal History: Reports: Colon Polyp Genitourinary History: Reports: Prostate Disorder, Other (See Below) Other Genitourinary History: 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 Musculoskeletal History: Reports: Fracture Other Musculoskeletal History: fingers Neurological History: Reports: Neuropathy, Peripheral Psychiatric History: Reports: None Endocrine/Metabolic History: Reports: Diabetes, Type II, Hypothyroidism, Obesity/BMI 30+ Other Endocrine/Metabolic History: takes Metformin for diabetes Hematologic History: Reports: Blood Transfusion(s) Immunologic History: Reports: None Oncologic (Cancer) History: Reports: None Dermatologic History: Reports: None - Infectious Disease History Infectious Disease History: Reports: Chicken Pox, Measles, Mumps, Novel Coronavirus - Past Surgical History Head Surgeries/Procedures: Reports: None HEENT Surgical History: Reports: None Cardiovascular Surgical History: Reports: None Respiratory Surgical History: Reports: None GI Surgical History: Reports: Colonoscopy, Hernia, Abdominal Other GI Surgeries/Procedures: umbilical hernia Male Surgical History: Reports: None, Other (See Below) Other Male Surgeries/Procedures: with indwelling murray catheter since [facility] admission, pt states "they tried to wean me from it but I dont have bladder control" Endocrine Surgical History: Reports: None Neurological Surgical History: Reports: None Musculoskeletal Surgical History: Reports: None Other Musculoskeletal Surgeries/Procedures:: Dislocated left fingers Oncologic Surgical History: Reports: None Dermatological Surgical History: Reports: None Social & Family History - Family History Family Medical History: No Pertinent Family History - Tobacco Use Tobacco Use Status *Q: Former Tobacco User Used Tobacco, but Quit: Yes Month/Year Tobacco Last Used: apr 1999 - Caffeine Use Caffeine Use: Reports: Coffee - Recreational Drug Use Recreational Drug Use: No ED ROS GENERAL - Review of Systems Review Of Systems: Comprehensive ROS is negative, except as noted in HPI. ED EXAM, GENERAL - Physical Exam Exam: See Below Free Text/Narrative:: My physical exam is in the HPI #1 Interpretation EKG Interpretation Comments: EKG done 03/02/2021 at 7:49 AM sinus rhythm heart rate 88 GA 269 [place] VIII late transition R wave in the precordium nonspecific ST and T abnormalities compared to 04/02/2020 no significant change impression no acute injury Course - Vital Signs Text/Narrative:: Oxygen saturation 92% on room air after treatment and spirometry Last Recorded V/S: Last Vital Signs Temp 39.3 C H 03/02/21 07:15 Pulse 84 03/02/21 09:51 Resp 18 03/02/21 09:51 BP 118/55 L 03/02/21 09:51 Pulse Ox 92 L 03/02/21 09:51 - Orders/Labs/Meds Orders: Active Orders 24 hr Category Date Time Status Incentive Spirometry [RT Incentive Spirometry] [RC] Care 03/02/21 08:52 Active ASDIRECTED RT Aerosol Therapy [RC] ASDIRECTED Care 03/02/21 08:52 Active CULTURE BLOOD [BC] Stat Lab 03/02/21 07:40 Received CULTURE BLOOD [BC] Stat Lab 03/02/21 07:56 Received Sodium Chloride 0.9% [Normal Saline] 500 ml Med 03/02/21 07:45 Active IV .BOLUS Sodium Chloride 0.9% [Saline Flush] Med 03/02/21 07:30 Active 10 ml FLUSH ASDIRECTED PRN Sodium Chloride 0.9% [Saline Flush] Med 03/02/21 07:30 Active 2.5 ml FLUSH ASDIRECTED PRN Blood Culture x2 Reflex Set [OM.PC] Stat Oth 03/02/21 07:31 Ordered Saline Lock Insert [OM.PC] Stat Oth 03/02/21 07:31 Ordered Medication Orders Sodium Chloride (Normal Saline) 500 mls @ 999 mls/hr IV .BOLUS STACY Sodium Chloride (Sodium Chloride 0.9% 10 Ml Syringe) 10 ml FLUSH ASDIRECTED PRN PRN Reason: Keep Vein Open Last Admin: 03/02/21 08:02 Dose: 10 ml Documented by: JONO Sodium Chloride (Sodium Chloride 0.9% 2.5 Ml Syringe) 2.5 ml FLUSH ASDIRECTED PRN PRN Reason: Keep Vein Open Last Admin: 03/02/21 08:02 Dose: 2.5 ml Documented by: JONO Labs: Laboratory Tests 03/02/21 03/02/21 03/02/21 Range/Units 07:15 07:39 07:40 WBC (4.0-11.0) K/uL RBC (4.50-5.90) M/uL Hgb (13.0-17.0) g/dL Hct (38.0-50.0) % MCV (80.0-98.0) fL MCH (27.0-32.0) pg MCHC (31.0-37.0) g/dL RDW Std Deviation (28.0-62.0) fl RDW Coeff of [place] (11.0-15.0) % Plt Count (150-400) K/uL MPV (7.40-12.00) fL Neut % (Auto) (48.0-80.0) % Lymph % (Auto) (16.0-40.0) % [place] % (Auto) (0.0-15.0) % Eos % (Auto) (0.0-7.0) % Baso % (Auto) (0.0-1.5) % Neut # (Auto) (1.4-5.7) K/uL Lymph # (Auto) (0.6-2.4) K/uL [place] # (Auto) (0.0-0.8) K/uL Eos # (Auto) (0.0-0.7) K/uL Baso # (Auto) (0.0-0.1) K/uL Nucleated RBC % /100WBC Nucleated RBCs # K/uL ABG pH (7.35-7.45) ABG pCO2 (35-45) mmHG ABG pO2 (80-105) mmHG ABG HCO3 (22-26) mEq/L ABG Total CO2 (23-27) mmol/L ABG Base Excess (-2.0-3.0) Sodium (136-148) mmol/L Potassium (3.5-5.1) mmol/L Chloride (98-107) mmol/L Carbon Dioxide (21.0-32.0) mmol/L BUN (7.0-18.0) mg/dL Creatinine (0.8-1.3) mg/dL Est Cr Clr Drug Dosing mL/min Estimated GFR (MDRD) ml/min Glucose (74-106) mg/dL Lactic Acid 1.9 (0.4-2.0) mmol/L Calcium (8.5-10.1) mg/dL Total Bilirubin (0.2-1.0) mg/dL AST (15-37) IU/L ALT (14-63) IU/L Alkaline Phosphatase (46-116) U/L Troponin I (0.000-0.056) ng/mL Total Protein (6.4-8.2) g/dL Albumin (3.4-5.0) g/dL Globulin (2.6-4.0) g/dL Albumin/Globulin Ratio (0.9-1.6) Urine Color YELLOW Urine Appearance CLEAR Urine pH 6.5 (5.0-8.0) Ur Specific [place] 1.020 (1.001-1.035) Urine Protein NEGATIVE (NEGATIVE) mg/dL Urine Glucose (UA) NEGATIVE (NEGATIVE) mg/dL Urine Ketones TRACE H (NEGATIVE) mg/dL Urine Occult Blood NEGATIVE (NEGATIVE) Urine Nitrite NEGATIVE (NEGATIVE) Urine Bilirubin NEGATIVE (NEGATIVE) Urine Urobilinogen 0.2 (<2.0) EU/dL Ur Leukocyte Esterase NEGATIVE (NEGATIVE) Influenza Type A RNA NEGATIVE (NEGATIVE) Influenza Type B RNA NEGATIVE (NEGATIVE) SARS-CoV-2 RNA (SKYLER) NEGATIVE (NEGATIVE) 03/02/21 03/02/21 03/02/21 Range/Units 07:40 07:40 08:00 WBC 8.89 (4.0-11.0) K/uL RBC 4.30 L (4.50-5.90) M/uL Hgb 14.1 (13.0-17.0) g/dL Hct 40.4 (38.0-50.0) % MCV 94.0 (80.0-98.0) fL MCH 32.8 H (27.0-32.0) pg MCHC 34.9 (31.0-37.0) g/dL RDW Std Deviation 44.8 (28.0-62.0) fl RDW Coeff of [place] 13 (11.0-15.0) % Plt Count 187 (150-400) K/uL MPV 9.40 (7.40-12.00) fL Neut % (Auto) 86.3 H (48.0-80.0) % Lymph % (Auto) 6.7 L (16.0-40.0) % [place] % (Auto) 6.6 (0.0-15.0) % Eos % (Auto) 0.3 (0.0-7.0) % Baso % (Auto) 0.1 (0.0-1.5) % Neut # (Auto) 7.7 H (1.4-5.7) K/uL Lymph # (Auto) 0.6 (0.6-2.4) K/uL [place] # (Auto) 0.6 (0.0-0.8) K/uL Eos # (Auto) 0.0 (0.0-0.7) K/uL Baso # (Auto) 0.0 (0.0-0.1) K/uL Nucleated RBC % 0.0 /100WBC Nucleated RBCs # 0 K/uL ABG pH 7.44 (7.35-7.45) ABG pCO2 34 L (35-45) mmHG ABG pO2 72 L (80-105) mmHG ABG HCO3 23 (22-26) mEq/L ABG Total CO2 24 (23-27) mmol/L ABG Base Excess 0.0 (-2.0-3.0) Sodium 135 L (136-148) mmol/L Potassium 4.2 (3.5-5.1) mmol/L Chloride 100 (98-107) mmol/L Carbon Dioxide 23.5 (21.0-32.0) mmol/L BUN 18 (7.0-18.0) mg/dL Creatinine 1.1 (0.8-1.3) mg/dL Est Cr Clr Drug Dosing 60.83 mL/min Estimated GFR (MDRD) > 60.0 ml/min Glucose 163 H (74-106) mg/dL Lactic Acid (0.4-2.0) mmol/L Calcium 8.6 (8.5-10.1) mg/dL Total Bilirubin 0.4 (0.2-1.0) mg/dL AST 24 (15-37) IU/L ALT 31 (14-63) IU/L Alkaline Phosphatase 68 (46-116) U/L Troponin I < 0.050 (0.000-0.056) ng/mL Total Protein 7.0 (6.4-8.2) g/dL Albumin 3.2 L (3.4-5.0) g/dL Globulin 3.8 (2.6-4.0) g/dL Albumin/Globulin Ratio 0.8 L (0.9-1.6) Urine Color Urine Appearance Urine pH (5.0-8.0) Ur Specific [place] (1.001-1.035) Urine Protein (NEGATIVE) mg/dL Urine Glucose (UA) (NEGATIVE) mg/dL Urine Ketones (NEGATIVE) mg/dL Urine Occult Blood (NEGATIVE) Urine Nitrite (NEGATIVE) Urine Bilirubin (NEGATIVE) Urine Urobilinogen (<2.0) EU/dL Ur Leukocyte Esterase (NEGATIVE) Influenza Type A RNA (NEGATIVE) Influenza Type B RNA (NEGATIVE) SARS-CoV-2 RNA (SKYLER) (NEGATIVE) Meds: Medications Generic Name Dose Route Start Last Admin Trade Name Freq PRN Reason Stop Dose Admin Sodium Chloride 500 mls @ 999 mls/hr 03/02/21 07:45 Normal Saline IV .BOLUS STACY Sodium Chloride 10 ml 03/02/21 07:30 03/02/21 08:02 Sodium Chloride 0.9% 10 Ml Syringe FLUSH 10 ml ASDIRECTED PRN Administration Keep Vein Open Sodium Chloride 2.5 ml 03/02/21 07:30 03/02/21 08:02 Sodium Chloride 0.9% 2.5 Ml Syringe FLUSH 2.5 ml ASDIRECTED PRN Administration Keep Vein Open Discontinued Medications Generic Name Dose Route Start Last Admin Trade Name Jose Martin PRN Reason Stop Dose Admin Albuterol/Ipratropium 3 ml 03/02/21 08:52 03/02/21 09:01 Albuterol/Ipratropium 3.0-0.5 Mg/3 Ml Neb Soln NEB 03/02/21 08:53 3 ml ONETIME ONE Administration Sodium Chloride 1,000 mls @ 1,000 mls/hr 03/02/21 07:32 03/02/21 07:53 Normal Saline IV 03/02/21 08:31 1,000 mls/hr .Bolus ONE Administration Sodium Chloride 1,000 mls @ 1,000 mls/hr 03/02/21 07:35 03/02/21 08:00 Normal Saline IV 03/02/21 08:34 1,000 mls/hr .Bolus ONE Administration Levofloxacin/Dextrose 750 mg/ 150 mls @ 100 mls/hr 03/02/21 07:36 03/02/21 07:54 Premix IV 03/02/21 09:05 100 mls/hr ONETIME ONE Administration - Re-Assessments/Exams Free Text/Narrative Re-Assessment/Exam: 03/02/21 08:39 X-ray read by teleradiology is normal. By comparison [id number] to prior available films to me the left heart border is today significantly indistinct suggesting a lingular pneumonia. 03/02/21 08:54 Patient's Covid negative. Plan breathing treatment and spirometry because the patient would rather go home. He does not have home oxygen. Departure - Departure Time of Disposition: 09:56 Disposition: Home, Self-Care 01 Condition: Good Clinical Impression: Fever, Balanitis - Discharge Information Prescriptions: levoFLOXacin [Levaquin] 750 mg PO DAILY #7 tab Referrals: Derek Barajas, CONSTRUCTION SERVICES TECHNICIAN [Primary Care Provider] - Forms: ED Department Discharge Additional Instructions: Use metronidazole cream for the rash on the penis. Take antibiotics and drink plenty fluids. Use your spirometer. [facility] - Primary Care [address] [place] [id number] [facility] [address] [place] [id number] The following information is given to patients seen in the emergency department who are being discharged to home. This information is to outline your options for follow-up care. We provide all patients seen in our emergency department with a follow-up referral. The need for follow-up, as well as the timing and circumstances, are variable depending upon the specifics of your emergency department visit. If you don't have a primary care physician on staff, we will provide you with a referral. We always advise you to contact your personal physician following an emergency department visit to inform them of the circumstance of the visit and for follow-up with them and/or the need for any referrals to a consulting specialist. The emergency department will also refer you to a specialist when appropriate. This referral assures that you have the opportunity for follow-up care with a specialist. All of these measure are taken in an effort to provide you with optimal care, which includes your follow-up. Under all circumstances we always encourage you to contact your private physician who remains a resource for coordinating your care. When calling for follow-up care, please make the office aware that this follow-up is from your recent emergency room visit. If for any reason you are refused follow-up, please contact the [facility] Emergency Department at and asked to speak to the emergency department charge nurse. Sepsis Event Note (ED) - Evaluation Sepsis Screening Result: No Definite Risk - Focused Exam Vital Signs: Vital Signs Temp Pulse Resp BP Pulse Ox 03/02/21 09:51 84 18 118/55 L 92 L 03/02/21 07:15 39.3 C H 105 H 20 135/51 L 87 L - My Orders Last 24 Hours: My Active Orders 03/02/21 07:30 Sodium Chloride 0.9% [Saline Flush] 10 ml FLUSH ASDIRECTED PRN Sodium Chloride 0.9% [Saline Flush] 2.5 ml FLUSH ASDIRECTED PRN 03/02/21 07:31 Blood Culture x2 Reflex Set [OM.PC] Stat Saline Lock Insert [OM.PC] Stat 03/02/21 07:40 CULTURE BLOOD [BC] Stat 03/02/21 07:45 Sodium Chloride 0.9% [Normal Saline] 500 ml IV .BOLUS 03/02/21 07:56 CULTURE BLOOD [BC] Stat 03/02/21 08:52 Incentive Spirometry [RT Incentive Spirometry] [RC] ASDIRECTED RT Aerosol Therapy [RC] ASDIRECTED - Assessment/Plan Last 24 Hours: My Active Orders 03/02/21 07:30 Sodium Chloride 0.9% [Saline Flush] 10 ml FLUSH ASDIRECTED PRN Sodium Chloride 0.9% [Saline Flush] 2.5 ml FLUSH ASDIRECTED PRN 03/02/21 07:31 Blood Culture x2 Reflex Set [OM.PC] Stat Saline Lock Insert [OM.PC] Stat 03/02/21 07:40 CULTURE BLOOD [BC] Stat 03/02/21 07:45 Sodium Chloride 0.9% [Normal Saline] 500 ml IV .BOLUS 03/02/21 07:56 CULTURE BLOOD [BC] Stat 03/02/21 08:52 Incentive Spirometry [RT Incentive Spirometry] [RC] ASDIRECTED RT Aerosol Therapy [RC] ASDIRECTED
[2021-03-02] MEDS ORDERED: Sodium Chloride 0.9% 500 ML IV SCH (07:45)
[2021-03-02 08:10] LABS: BLOOD UREA NITROGEN,BUN 18 mg/dL (7.0-18.0); CARBON DIOXIDE,CO2 23.5 mmol/L (21.0-32.0); CHLORIDE,CL 100 mmol/L (98-107); GLUCOSE RANDOM 163 mg/dL (74-106); POTASSIUM,K 4.2 mmol/L (3.5-5.1); SODIUM,NA 135 mmol/L (136-148)
--- NOTE | 2021-03-02 08:27 | CR ---
INDICATION: fever, COPD TECHNIQUE: Chest 1 view COMPARISON: 02/11/2021 FINDINGS: No consolidative infiltrate. No edema or effusion. No pneumothorax. Degenerative changes. Exuberant spurring at the left shoulder glenohumeral joint. Chronic hypertrophic change with the anterior right 5th rib. Cardiac silhouette is similar. IMPRESSION: No acute findings. Dictated by Johnny Devine MD @ 03/02/2021 8:24:59 AM (Electronically Signed)
[2021-03-02 08:45] LABS: CORONAVIRUS COVID-19 NAA NEGATIVE (NEGATIVE)
[2021-03-02] MEDS ORDERED: Albuterol/Ipratropium 3.0-0.5 MG/3 ML Neb Soln NEB ONE (08:52)
[2021-03-02 09:27] LABS: INFLUENZA A NAA NEGATIVE (NEGATIVE); INFLUENZA B NAA NEGATIVE (NEGATIVE)
[2021-03-02 09:52] VITALS: BP 118/55; PULSE 84
== END 2021-03-02 10:18 | disposition home or self-care (01) ==
LOC: MW.ED 06:51
DX: J18.9 Pneumonia, unspecified organism (principal); J44.1 Chronic obstructive pulmonary disease with (acute) exacerbation; N48.1 Balanitis; E78.00 Pure hypercholesterolemia, unspecified; I10 Essential (primary) hypertension; E11.42 Type 2 diabetes mellitus with diabetic polyneuropathy; E03.9 Hypothyroidism, unspecified; E66.9 Obesity, unspecified; Z68.32 Body mass index [BMI] 32.0-32.9, adult; Z87.891 Personal history of nicotine dependence; Z88.0 Allergy status to penicillin; Z91.013 Allergy to seafood; Z88.7 Allergy status to serum and vaccine; Z79.84 Long term (current) use of oral hypoglycemic drugs; Z79.01 Long term (current) use of anticoagulants; Z79.899 Other long term (current) drug therapy; Z20.822 Contact with and (suspected) exposure to COVID-19
CPT/HCPCS: 0240U; 36415; 36600; 71045; 80053; 81003; 82803; 83605; 84484; 85025; 87040; 93005; 94640; 96365; 99285; J1956; J7030; J7620-GY

== ENCOUNTER 2021-10-05 08:00 | Inpatient (IN) | payer MEDICARE, OTHER ==
[2021-10-05] MEDS ORDERED: Acetaminophen 500 MG Tab PO ONE (08:28)
[2021-10-05] MEDS ORDERED: Ondansetron 4 MG/2 ML SDV IVPUSH ONE (08:40)
[2021-10-05 09:10] LABS: BLOOD UREA NITROGEN,BUN 16 mg/dL (7.0-18.0); CARBON DIOXIDE,CO2 25.7 mmol/L (21.0-32.0); CHLORIDE,CL 104 mmol/L (98-107); ESTIMATED GFR > 60.0 ml/min; GLUCOSE RANDOM 156 mg/dL (74-106); LIPASE 51 U/L (73-393); POTASSIUM,K 4.7 mmol/L (3.5-5.1); SODIUM,NA 139 mmol/L (136-148)
[2021-10-05] MEDS ORDERED: Sodium Chloride 0.9% 1,000 ML IV ONE ×2 (09:11→10:24)
[2021-10-05 09:15] LABS: CORONAVIRUS COVID-19 NAA NEGATIVE (NEGATIVE); INFLUENZA A NAA NEGATIVE (NEGATIVE); INFLUENZA B NAA NEGATIVE (NEGATIVE)
[2021-10-05] MEDS ORDERED: Cefepime 2 GM in Sodium Chloride 0.9% 50 ML IV ONE ×2 (09:26→10:45)
[2021-10-05] MEDS ORDERED: Cefepime 2 GM Vial ONE ×2 (09:43→20:36)
[2021-10-05] MEDS ORDERED: Sodium Chloride 0.9% 50 ML ONE ×2 (09:44→20:37)
[2021-10-05] MEDS ORDERED: Lactated Ringers 1,000 ML IV ONE (15:03)
[2021-10-05] MEDS: VANCOmycin 1.5 GM/300 ML 1.5 GM in Premix Bag 1 BAG IV SCH (16:01)
[2021-10-05] MEDS ORDERED: Ondansetron 4 MG/2 ML SDV IVPUSH PRN (16:27)
[2021-10-05] MEDS ORDERED: Polyethylene Glycol 3350 Powder 17 GM Packet PO PRN (16:27)
[2021-10-05] MEDS ORDERED: Albuterol/Ipratropium 3.0-0.5 MG/3 ML Neb Soln NEB PRN (16:27)
[2021-10-05] MEDS ORDERED: Acetaminophen 325 MG Tab PO PRN (16:27)
[2021-10-05] MEDS ORDERED: Glucagon,Human Recombinant 1 MG Vial IM PRN (16:36)
[2021-10-05] MEDS ORDERED: 50% Dextrose in Water 50 ML Syringe IVPUSH PRN (16:36)
[2021-10-05] MEDS: Rivaroxaban 10 MG Tab PO SCH (17:01)
[2021-10-05] MEDS: Insulin Aspart 100 Units/ML 3 ML Pen SUBCUT SCH (17:15)
[2021-10-05] MEDS ORDERED: Iopamidol 755 MG/ML 500 ML Multipack Bottle IVPUSH ONE (18:25)
[2021-10-05] MEDS: Cefepime 2 GM in Sodium Chloride 0.9% 50 ML IV SCH (20:38)
[2021-10-05] MEDS: Gabapentin 100 MG Cap PO SCH (21:41)
[2021-10-05] MEDS: Lactated Ringers 1,000 ML IV SCH (22:14)
[2021-10-06] MEDS: Cefepime 2 GM in Sodium Chloride 0.9% 50 ML IV SCH ×3 (02:14→17:17)
[2021-10-06] MEDS: VANCOmycin 1.5 GM/300 ML 1.5 GM in Premix Bag 1 BAG IV SCH (03:19)
[2021-10-06 06:10] LABS: BLOOD UREA NITROGEN,BUN 13 mg/dL (7.0-18.0); CARBON DIOXIDE,CO2 25.2 mmol/L (21.0-32.0); CHLORIDE,CL 105 mmol/L (98-107); GLUCOSE RANDOM 119 mg/dL (74-106); SODIUM,NA 136 mmol/L (136-148)
[2021-10-06 06:12] LABS: ESTIMATED GFR > 60.0 ml/min
[2021-10-06] MEDS: Gabapentin 100 MG Cap PO SCH ×3 (06:35→21:42)
[2021-10-06] MEDS: Insulin Aspart 100 Units/ML 3 ML Pen SUBCUT SCH ×3 (07:01→17:04)
[2021-10-06] MEDS ORDERED: Levothyroxine 150 MCG Tab PO SCH (08:45)
[2021-10-06] MEDS ORDERED: Levothyroxine 100 MCG Tab PO SCH (09:00)
[2021-10-06] MEDS: Pantoprazole 40 MG in Sodium Chloride 0.9% 10 ML IVPUSH SCH (09:28)
[2021-10-06] MEDS: Allopurinol 100 MG Tab PO SCH (09:28)
[2021-10-06] MEDS: Lactated Ringers 1,000 ML IV SCH ×2 (11:28→22:01)
[2021-10-06] MEDS: Rivaroxaban 10 MG Tab PO SCH (16:56)
[2021-10-07] MEDS: Cefepime 2 GM in Sodium Chloride 0.9% 50 ML IV SCH ×2 (05:16→10:17)
[2021-10-07] MEDS: Gabapentin 100 MG Cap PO SCH ×3 (06:05→21:41)
[2021-10-07] MEDS: Insulin Aspart 100 Units/ML 3 ML Pen SUBCUT SCH ×3 (06:29→17:20)
[2021-10-07 06:53] LABS: BLOOD UREA NITROGEN,BUN 11 mg/dL (7.0-18.0); CARBON DIOXIDE,CO2 26.2 mmol/L (21.0-32.0); CHLORIDE,CL 105 mmol/L (98-107); GLUCOSE RANDOM 119 mg/dL (74-106); POTASSIUM,K 3.8 mmol/L (3.5-5.1); SODIUM,NA 138 mmol/L (136-148)
[2021-10-07 06:55] LABS: ESTIMATED GFR > 60.0 ml/min
[2021-10-07] MEDS: Allopurinol 100 MG Tab PO SCH (09:46)
[2021-10-07] MEDS: Pantoprazole 40 MG in Sodium Chloride 0.9% 10 ML IVPUSH SCH ×2 (09:48→09:53)
[2021-10-07] MEDS: Rivaroxaban 10 MG Tab PO SCH (17:09)
[2021-10-07] MEDS: Cefepime 2 GM in Premix Bag 1 BAG IV SCH (17:09)
[2021-10-07] MEDS ORDERED: Cefepime 2 GM in Sodium Chloride 0.9% 50 ML IV SCH (18:00)
[2021-10-07] MEDS: Lactated Ringers 1,000 ML IV SCH (20:11)
[2021-10-08] MEDS: Cefepime 2 GM in Premix Bag 1 BAG IV SCH ×3 (01:17→18:12)
[2021-10-08] MEDS: Gabapentin 100 MG Cap PO SCH ×3 (06:04→21:30)
[2021-10-08] MEDS: Insulin Aspart 100 Units/ML 3 ML Pen SUBCUT SCH ×3 (06:30→18:12)
[2021-10-08] MEDS: Lactated Ringers 1,000 ML IV SCH ×2 (06:30→18:16)
[2021-10-08 07:55] LABS: BLOOD UREA NITROGEN,BUN 11 mg/dL (7.0-18.0); CARBON DIOXIDE,CO2 24.2 mmol/L (21.0-32.0); CHLORIDE,CL 105 mmol/L (98-107); GLUCOSE RANDOM 122 mg/dL (74-106); POTASSIUM,K 3.5 mmol/L (3.5-5.1); SODIUM,NA 138 mmol/L (136-148)
[2021-10-08 07:58] LABS: ESTIMATED GFR > 60.0 ml/min
[2021-10-08] MEDS: Allopurinol 100 MG Tab PO SCH (09:35)
[2021-10-08] MEDS: Pantoprazole 40 MG in Sodium Chloride 0.9% 10 ML IVPUSH SCH (09:36)
[2021-10-08] MEDS: Rivaroxaban 10 MG Tab PO SCH (18:11)
[2021-10-09] MEDS: Cefepime 2 GM in Premix Bag 1 BAG IV SCH ×2 (01:04→09:00)
[2021-10-09] MEDS: Gabapentin 100 MG Cap PO SCH (05:25)
[2021-10-09] MEDS: Lactated Ringers 1,000 ML IV SCH (05:26)
[2021-10-09] MEDS: Insulin Aspart 100 Units/ML 3 ML Pen SUBCUT SCH (06:35)
[2021-10-09 07:18] LABS: POTASSIUM,K 3.6 mmol/L (3.5-5.1)
[2021-10-09] MEDS: Allopurinol 100 MG Tab PO SCH (08:47)
[2021-10-09] MEDS: Pantoprazole 40 MG in Sodium Chloride 0.9% 10 ML IVPUSH SCH (08:47)
[2021-10-09 09:12] VITALS: BP 152/81; PULSE 61
== END 2021-10-09 11:50 | disposition home or self-care (01) | DRG 193 ==
LOC: MW.ED 08:00 → MW.MS 11:26
PROVIDERS: ADMIT Student in an Organized Health Care Education/Training Program; ATTEND Student in an Organized Health Care Education/Training Program
PROC: 02HV33Z Insertion of Infusion Device into Superior Vena Cava, Percutaneous Approach (ICD-10-PCS; principal; 2021-10-07)
DX: J18.9 Pneumonia, unspecified organism (principal); J96.01 Acute respiratory failure with hypoxia; G47.30 Sleep apnea, unspecified; F05 Delirium due to known physiological condition; R33.9 Retention of urine, unspecified; E11.42 Type 2 diabetes mellitus with diabetic polyneuropathy; E11.9 Type 2 diabetes mellitus without complications; Z86.16 Personal history of COVID-19; Z87.01 Personal history of pneumonia (recurrent); E78.5 Hyperlipidemia, unspecified; I10 Essential (primary) hypertension; E03.9 Hypothyroidism, unspecified; Z88.7 Allergy status to serum and vaccine; Z20.822 Contact with and (suspected) exposure to COVID-19; E78.00 Pure hypercholesterolemia, unspecified; E66.9 Obesity, unspecified; Z79.84 Long term (current) use of oral hypoglycemic drugs; Z79.890 Hormone replacement therapy; M19.90 Unspecified osteoarthritis, unspecified site; R33.8 Other retention of urine; N40.1 Benign prostatic hyperplasia with lower urinary tract symptoms; Z86.711 Personal history of pulmonary embolism; Z79.01 Long term (current) use of anticoagulants; Z79.899 Other long term (current) drug therapy; Z88.8 Allergy status to other drugs, medicaments and biological substances; Z88.0 Allergy status to penicillin; Z91.013 Allergy to seafood; Z86.010 Personal history of colon polyps; Z68.33 Body mass index [BMI] 33.0-33.9, adult
CPT/HCPCS: 0240U; 36415; 71045; 71275; 74177; 80048; 80053; 80202; 81001; 82803; 82947; 83605; 83690; 83735; 83880; 84443; 84484; 85025; 85610; 85730; 86140; 87040; 93005; 96365; 96375; 97110; 97116; 97162; 99285; A9270-GY; C9113; J0692; J1815-GY; J2405; J3370; J3490; J7030; J7050; J7120; Q9967

== ENCOUNTER 2022-11-04 15:54 | Emergency (ER) | payer MEDICARE, OTHER ==
[2022-11-04 16:03] VITALS: BP 121/52; PULSE 64
== END 2022-11-04 16:25 | disposition left against medical advice (07) ==
LOC: MW.ED 15:54
DX: R41.0 Disorientation, unspecified (principal); E78.00 Pure hypercholesterolemia, unspecified; I10 Essential (primary) hypertension; E11.9 Type 2 diabetes mellitus without complications; E03.9 Hypothyroidism, unspecified; E66.9 Obesity, unspecified; Z88.0 Allergy status to penicillin; Z86.16 Personal history of COVID-19; Z91.013 Allergy to seafood; Z88.7 Allergy status to serum and vaccine; Z79.899 Other long term (current) drug therapy; Z79.84 Long term (current) use of oral hypoglycemic drugs; Z68.30 Body mass index [BMI] 30.0-30.9, adult
CPT/HCPCS: 93010; 99281; 99284

== ENCOUNTER 2023-06-09 08:07 | Day surgery (SDC) | payer OTHER, MEDICARE ==
[2023-06-09] MEDS ORDERED: fentaNYL 100 MCG/2 ML SDV ONE (08:20)
[2023-06-09] MEDS ORDERED: Midazolam 1 MG/ML 2 ML SDV ONE (08:20)
[2023-06-09] MEDS ORDERED: Propofol 200 MG/20 ML SDV ONE (08:20)
[2023-06-09] MEDS: Lactated Ringers 1,000 ML IV SCH (08:44)
[2023-06-09 10:36] VITALS: BP 120/61; PULSE 51
== END 2023-06-09 10:50 | disposition home or self-care (01) ==
LOC: MW.SDS 08:07
PROVIDERS: ATTEND Surgery
DX: D12.2 Benign neoplasm of ascending colon (principal); D12.3 Benign neoplasm of transverse colon; K57.30 Diverticulosis of large intestine without perforation or abscess without bleeding; R13.10 Dysphagia, unspecified; R19.5 Other fecal abnormalities; E03.9 Hypothyroidism, unspecified; I25.10 Atherosclerotic heart disease of native coronary artery without angina pectoris; E11.9 Type 2 diabetes mellitus without complications; Z88.0 Allergy status to penicillin; Z91.013 Allergy to seafood; Z79.899 Other long term (current) drug therapy; Z86.010 Personal history of colon polyps; Z87.891 Personal history of nicotine dependence
CPT/HCPCS: 45380; J2250; J2704; J3010; J7120; 88305

== ENCOUNTER 2023-07-21 08:56 | Emergency (ER) | payer MEDICARE, OTHER ==
[2023-07-21] MEDS: Sodium Chloride 0.9% 10 ML Syringe FLUSH PRN (09:50)
[2023-07-21] MEDS: Sodium Chloride 0.9% 2.5 ML Syringe FLUSH PRN (09:50)
[2023-07-21 10:13] LABS: BASOPHILS ABSOLUTE AUTO 0.02 K/uL (0.00-0.20); BASOPHILS PERCENT AUTO 0.2 % (0.0-1.0); EOSINOPHILS ABSOLUTE AUTO 0.11 K/uL (0.00-0.45); EOSINOPHILS PERCENT AUTO 0.9 % (0.0-6.0); HEMATOCRIT 38.4 % (42.0-52.0); HEMOGLOBIN 13.6 g/dL (14.0-18.0); IMMATURE GRAN ABSOLUTE AUTO 0.06 K/uL (0.00-0.05); IMMATURE GRAN PERCENT AUTO 0.5 % (0.0-0.4); LYMPHOCYTES ABSOLUTE AUTO 1.47 K/uL (1.00-4.80); LYMPHOCYTES PERCENT AUTO 11.6 % (24.0-44.0); MEAN CORPUSCULAR HEMOGLOBIN 33.8 pg (28.0-32.0); MEAN CORPUSCULAR HGB CONC 35.4 g/dL (32.0-36.0); MEAN CORPUSCULAR VOLUME 95.5 fL (83.0-99.0); MEAN PLATELET VOLUME 9.2 fL (9.4-12.4); MONOCYTES ABSOLUTE AUTO 0.69 K/uL (0.00-0.80); MONOCYTES PERCENT AUTO 5.5 % (0.0-8.0); NEUTROPHILS ABSOLUTE AUTO 10.29 K/uL (1.80-7.70); NEUTROPHILS PERCENT AUTO 81.3 % (41.0-71.0); PLATELET COUNT,PLT 226 K/uL (150-400); RED BLOOD CELL COUNT 4.02 M/uL (4.52-5.90); WHITE BLOOD CELL COUNT,WBC 12.64 K/uL (3.9-11.3)
[2023-07-21 10:27] LABS: CORONAVIRUS COVID-19 NAA NEGATIVE (NEGATIVE); INFLUENZA A NAA NEGATIVE (NEGATIVE); INFLUENZA B NAA NEGATIVE (NEGATIVE)
[2023-07-21 10:33] LABS: APPEARANCE,URINE SLT CLOUDY; BILIRUBIN,URINE NEGATIVE (NEGATIVE); GLUCOSE,URINE NEGATIVE (NEGATIVE); KETONES,URINE TRACE mg/dL (NEGATIVE); LEUKOCYTE ESTERASE,URINE TRACE (NEGATIVE); NITRITE,URINE NEGATIVE (NEGATIVE); OCCULT BLOOD,URINE NEGATIVE (NEGATIVE); PROTEIN,URINE NEGATIVE (NEGATIVE); UROBILINOGEN,URINE 0.2 EU/dL (<2.0)
[2023-07-21 10:34] LABS: COLOR,URINE AMBER
[2023-07-21 10:37] LABS: BACTERIA,URINE FEW (NEGATIVE); EPITHELIAL CELLS,URINE RARE (NONE-FEW); MUCUS,URINE OCCASIONAL (NONE-MOD); RBC,URINE 0-2 (0-2/HPF)
[2023-07-21 10:46] LABS: A/G RATIO 0.8 (0.9-1.6); ALBUMIN 3.1 g/dL (3.4-5.0); BILIRUBIN TOTAL 0.4 mg/dL (0.2-1.0); CALCIUM 9.5 mg/dL (8.5-10.1); CARBON DIOXIDE,CO2 27.3 mmol/L (21.0-32.0); EST CRCL DRUG DOSING (CG) 64.89 mL/min; LACTIC ACID 1.4 mmol/L (0.4-2.0); POTASSIUM,K 4.8 mmol/L (3.5-5.1); PROTEIN TOTAL,TP 6.9 g/dL (6.4-8.2)
[2023-07-21] MEDS: Acetaminophen 325 MG Tab PO ONE (11:10)
[2023-07-21] MEDS: Sodium Chloride 0.9% 1,000 ML IV ONE ×2 (11:10→13:45)
[2023-07-21] MEDS: cefTRIAXone 1 GM in Sodium Chloride 0.9% 50 ML IV ONE (12:30)
[2023-07-21] MEDS: Azithromycin 500 MG in Sodium Chloride 0.9% 250 ML IV ONE (13:12)
[2023-07-21] MEDS: Sodium Chloride 0.9% 2,000 ML IV ONE (13:36)
[2023-07-21 15:17] VITALS: BP 117/60; PULSE 61
== END 2023-07-21 15:18 | disposition home or self-care (01) ==
LOC: MW.ED 08:56
DX: J18.9 Pneumonia, unspecified organism (principal); I10 Essential (primary) hypertension; E78.00 Pure hypercholesterolemia, unspecified; E66.9 Obesity, unspecified; E11.9 Type 2 diabetes mellitus without complications; E03.9 Hypothyroidism, unspecified; Z88.0 Allergy status to penicillin; Z91.013 Allergy to seafood; Z88.7 Allergy status to serum and vaccine; Z79.84 Long term (current) use of oral hypoglycemic drugs; Z79.899 Other long term (current) drug therapy; Z86.16 Personal history of COVID-19; Z68.28 Body mass index [BMI] 28.0-28.9, adult; Z75.8 Other problems related to medical facilities and other health care; Z79.02 Long term (current) use of antithrombotics/antiplatelets
CPT/HCPCS: 0240U; 36415; 71046; 80053; 81001; 83605; 83880; 84484; 85025; 85379; 87040; 93005; 96361; 96365; 96367; 99284; A9270; J0456; J0696; J3490; J7030; J7050; 93010; 99283

== ENCOUNTER 2023-11-20 12:13 | Emergency (ER) | payer MEDICARE, OTHER ==
[2023-11-20 12:35] VITALS: BP 139/54
[2023-11-20] MEDS: Oxymetazoline 0.05% Nasal Spray 30 ML Bottle NAS ONE (12:48)
[2023-11-20 13:31] VITALS: PULSE 58
== END 2023-11-20 13:31 | disposition home or self-care (01) ==
LOC: MW.ED 12:13
DX: R04.0 Epistaxis (principal); I10 Essential (primary) hypertension; E78.00 Pure hypercholesterolemia, unspecified; K21.9 Gastro-esophageal reflux disease without esophagitis; E11.9 Type 2 diabetes mellitus without complications; E03.9 Hypothyroidism, unspecified; Z75.8 Other problems related to medical facilities and other health care; Z88.0 Allergy status to penicillin; Z91.013 Allergy to seafood; Z88.7 Allergy status to serum and vaccine; Z79.890 Hormone replacement therapy; Z79.01 Long term (current) use of anticoagulants; Z79.84 Long term (current) use of oral hypoglycemic drugs; Z79.899 Other long term (current) drug therapy
CPT/HCPCS: 99283; A9270

== ENCOUNTER 2024-01-05 09:09 | Inpatient (IN) | payer OTHER, MEDICARE ==
[2024-01-05] MEDS ORDERED: Sodium Chloride 0.9% 2.5 ML Syringe FLUSH PRN ×2 (09:50→14:13)
[2024-01-05] MEDS ORDERED: Sodium Chloride 0.9% 10 ML Syringe FLUSH PRN ×2 (09:50→14:13)
[2024-01-05] MEDS: cefTRIAXone 1 GM Vial IV ONE (10:04)
[2024-01-05] MEDS: Acetaminophen 325 MG Tab PO ONE (10:12)
[2024-01-05] MEDS: Sodium Chloride 0.9% 1,000 ML IV ONE ×3 (10:16→10:51)
[2024-01-05] MEDS: cefTRIAXone 1 GM in Sodium Chloride 0.9% 50 ML IV ONE ×2 (10:19→15:52)
[2024-01-05 10:25] LABS: BASOPHILS ABSOLUTE AUTO 0.01 K/uL (0.00-0.20); BASOPHILS PERCENT AUTO 0.1 % (0.0-1.0); EOSINOPHILS ABSOLUTE AUTO 0.01 K/uL (0.00-0.45); EOSINOPHILS PERCENT AUTO 0.1 % (0.0-6.0); HEMOGLOBIN 13.8 g/dL (14.0-18.0); IMMATURE GRAN ABSOLUTE AUTO 0.01 K/uL (0.00-0.05); IMMATURE GRAN PERCENT AUTO 0.1 % (0.0-0.4); LYMPHOCYTES ABSOLUTE AUTO 0.38 K/uL (1.00-4.80); LYMPHOCYTES PERCENT AUTO 3.8 % (24.0-44.0); MEAN CORPUSCULAR HEMOGLOBIN 33.3 pg (28.0-32.0); MEAN CORPUSCULAR HGB CONC 35.4 g/dL (32.0-36.0); MEAN PLATELET VOLUME 9.2 fL (9.4-12.4); MONOCYTES ABSOLUTE AUTO 0.49 K/uL (0.00-0.80); MONOCYTES PERCENT AUTO 4.9 % (0.0-8.0); NEUTROPHILS ABSOLUTE AUTO 9.03 K/uL (1.80-7.70); PLATELET COUNT,PLT 197 K/uL (150-400); RED BLOOD CELL COUNT 4.15 M/uL (4.52-5.90); WHITE BLOOD CELL COUNT,WBC 9.93 K/uL (3.9-11.3)
[2024-01-05] MEDS: VANCOmycin 2 GM/400 ML 2 GM in Premix Bag 1 BAG IV ONE (10:51)
[2024-01-05 10:56] LABS: ALBUMIN 3.4 g/dL (3.4-5.0); BILIRUBIN TOTAL 0.6 mg/dL (0.2-1.0); CALCIUM 9.7 mg/dL (8.5-10.1); CARBON DIOXIDE,CO2 26.6 mmol/L (21.0-32.0); CREATININE 1.2 mg/dL (0.8-1.3); EST CRCL DRUG DOSING (CG) 53.23 mL/min; POTASSIUM,K 3.8 mmol/L (3.5-5.1); PROTEIN TOTAL,TP 6.7 g/dL (6.4-8.2)
[2024-01-05 11:03] LABS: LACTIC ACID 1.7 mmol/L (0.4-2.0)
[2024-01-05 11:04] LABS: CORONAVIRUS COVID-19 NAA NEGATIVE (NEGATIVE); INFLUENZA A NAA NEGATIVE (NEGATIVE); INFLUENZA B NAA NEGATIVE (NEGATIVE)
[2024-01-05 11:52] LABS: APPEARANCE,URINE CLEAR; BILIRUBIN,URINE NEGATIVE (NEGATIVE); COLOR,URINE YELLOW; GLUCOSE,URINE NEGATIVE (NEGATIVE); KETONES,URINE TRACE mg/dL (NEGATIVE); LEUKOCYTE ESTERASE,URINE NEGATIVE (NEGATIVE); NITRITE,URINE NEGATIVE (NEGATIVE); OCCULT BLOOD,URINE NEGATIVE (NEGATIVE); PROTEIN,URINE NEGATIVE (NEGATIVE); UROBILINOGEN,URINE 0.2 EU/dL (<2.0)
[2024-01-05] MEDS: Azithromycin 500 MG in Sodium Chloride 0.9% 250 ML IV ONE (13:33)
[2024-01-05] MEDS ORDERED: Albuterol 0.083% 2.5 MG/3 ML Neb Soln NEB PRN (14:13)
[2024-01-05] MEDS ORDERED: Docusate Sodium 100 MG Cap PO PRN (14:13)
[2024-01-05] MEDS ORDERED: Ondansetron 4 MG/2 ML SDV IVPUSH PRN (14:13)
[2024-01-05] MEDS ORDERED: Polyethylene Glycol 3350 Powder 17 GM Packet PO PRN (14:13)
[2024-01-05] MEDS ORDERED: 50% Dextrose in Water 50 ML Syringe IVPUSH PRN (14:18)
[2024-01-05] MEDS ORDERED: Glucagon,Human Recombinant 1 MG Vial IM PRN (14:18)
[2024-01-05] MEDS: metroNIDAZOLE/Normal Saline 500 MG in Premix Bag 1 BAG IV SCH (15:39)
[2024-01-05] MEDS: Sodium Chloride 0.9% 1,000 ML IV SCH (15:40)
[2024-01-05] MEDS: Insulin Aspart 100 Units/ML 3 ML Pen SUBCUT SCH (17:43)
[2024-01-05] MEDS: atorvaSTATin 20 MG Tab PO SCH (22:09)
[2024-01-05] MEDS: Allopurinol 100 MG Tab PO SCH (22:09)
[2024-01-05] MEDS: Rivaroxaban 10 MG Tab PO SCH (22:09)
[2024-01-06 05:49] LABS: BASOPHILS ABSOLUTE AUTO 0.03 K/uL (0.00-0.20); BASOPHILS PERCENT AUTO 0.2 % (0.0-1.0); EOSINOPHILS ABSOLUTE AUTO 0.07 K/uL (0.00-0.45); EOSINOPHILS PERCENT AUTO 0.5 % (0.0-6.0); HEMATOCRIT 34.7 % (42.0-52.0); HEMOGLOBIN 11.7 g/dL (14.0-18.0); IMMATURE GRAN ABSOLUTE AUTO 0.07 K/uL (0.00-0.05); IMMATURE GRAN PERCENT AUTO 0.5 % (0.0-0.4); LYMPHOCYTES ABSOLUTE AUTO 1.64 K/uL (1.00-4.80); LYMPHOCYTES PERCENT AUTO 10.6 % (24.0-44.0); MEAN CORPUSCULAR HEMOGLOBIN 32.4 pg (28.0-32.0); MEAN CORPUSCULAR HGB CONC 33.7 g/dL (32.0-36.0); MEAN CORPUSCULAR VOLUME 96.1 fL (83.0-99.0); MEAN PLATELET VOLUME 9.6 fL (9.4-12.4); MONOCYTES ABSOLUTE AUTO 0.82 K/uL (0.00-0.80); MONOCYTES PERCENT AUTO 5.3 % (0.0-8.0); NEUTROPHILS PERCENT AUTO 82.9 % (41.0-71.0); PLATELET COUNT,PLT 180 K/uL (150-400); RED BLOOD CELL COUNT 3.61 M/uL (4.52-5.90); WHITE BLOOD CELL COUNT,WBC 15.53 K/uL (3.9-11.3)
[2024-01-06 06:04] LABS: CALCIUM 8.8 mg/dL (8.5-10.1); CARBON DIOXIDE,CO2 23.4 mmol/L (21.0-32.0); CREATININE 0.9 mg/dL (0.8-1.3); EST CRCL DRUG DOSING (CG) 70.97 mL/min; MAGNESIUM 1.8 mg/dL (1.8-2.4); POTASSIUM,K 4.1 mmol/L (3.5-5.1)
[2024-01-06] MEDS: Azithromycin 250 MG Tab PO SCH (08:02)
[2024-01-06] MEDS: Levothyroxine 100 MCG Tab PO SCH (08:02)
[2024-01-06] MEDS: cefTRIAXone 2 GM in Sodium Chloride 0.9% 50 ML IV SCH (10:25)
[2024-01-06] MEDS: Metoprolol Succinate 25 MG Tab.ER PO SCH (10:37)
[2024-01-06] MEDS: Formoterol/Mometasone 100-5 MCG 8.8 GM Inhaler INH SCH (11:35)
[2024-01-06] MEDS: Isosorbide Mononitrate 30 MG Tab.ER PO SCH (11:37)
[2024-01-06 11:41] LABS: HEMOGLOBIN A1C 6.1 %
[2024-01-06] MEDS: Gabapentin 800 MG Tab PO SCH (14:47)
[2024-01-06] MEDS: Acetaminophen 325 MG Tab PO PRN (18:40)
[2024-01-06] MEDS: Finasteride 5 MG Tab PO SCH (22:01)
[2024-01-06] MEDS: Tamsulosin 0.4 MG Cap.ER PO SCH (22:02)
[2024-01-06] MEDS: Donepezil 5 MG Tab PO SCH (22:02)
[2024-01-06] MEDS: Melatonin 3 MG Tab PO PRN (22:05)
[2024-01-07] MEDS: Haloperidol Lactate 5 MG/ML SDV IM ONE (02:28)
[2024-01-07 08:58] LABS: BASOPHILS ABSOLUTE AUTO 0.02 K/uL (0.00-0.20); BASOPHILS PERCENT AUTO 0.2 % (0.0-1.0); EOSINOPHILS ABSOLUTE AUTO 0.05 K/uL (0.00-0.45); EOSINOPHILS PERCENT AUTO 0.5 % (0.0-6.0); HEMATOCRIT 33.8 % (42.0-52.0); HEMOGLOBIN 11.7 g/dL (14.0-18.0); IMMATURE GRAN ABSOLUTE AUTO 0.05 K/uL (0.00-0.05); IMMATURE GRAN PERCENT AUTO 0.5 % (0.0-0.4); LYMPHOCYTES ABSOLUTE AUTO 1.44 K/uL (1.00-4.80); LYMPHOCYTES PERCENT AUTO 14.5 % (24.0-44.0); MEAN CORPUSCULAR HEMOGLOBIN 32.8 pg (28.0-32.0); MEAN CORPUSCULAR HGB CONC 34.6 g/dL (32.0-36.0); MEAN CORPUSCULAR VOLUME 94.7 fL (83.0-99.0); MONOCYTES ABSOLUTE AUTO 0.57 K/uL (0.00-0.80); MONOCYTES PERCENT AUTO 5.7 % (0.0-8.0); NEUTROPHILS PERCENT AUTO 78.6 % (41.0-71.0); PLATELET COUNT,PLT 185 K/uL (150-400); RED BLOOD CELL COUNT 3.57 M/uL (4.52-5.90); WHITE BLOOD CELL COUNT,WBC 9.93 K/uL (3.9-11.3)
[2024-01-07 09:20] LABS: CALCIUM 9.1 mg/dL (8.5-10.1); CARBON DIOXIDE,CO2 27.1 mmol/L (21.0-32.0); CREATININE 0.9 mg/dL (0.8-1.3); EST CRCL DRUG DOSING (CG) 70.97 mL/min; MAGNESIUM 1.8 mg/dL (1.8-2.4); POTASSIUM,K 3.8 mmol/L (3.5-5.1)
[2024-01-07] MEDS: Multivitamin Tab PO SCH (09:45)
[2024-01-07] MEDS: Cefdinir 300 MG Cap PO SCH (09:46)
[2024-01-07 09:51] VITALS: BP 161/77
[2024-01-07 09:55] VITALS: PULSE 54
[2024-01-07] MEDS: Pantoprazole 40 MG Tab.CR PO SCH (10:43)
== END 2024-01-07 11:35 | disposition home or self-care (01) | DRG 871 ==
LOC: MW.ED 09:09 → MW.MS 13:01
PROVIDERS: ADMIT Internal Medicine; ATTEND Internal Medicine
DX: A41.9 Sepsis, unspecified organism (principal); J18.9 Pneumonia, unspecified organism; J69.0 Pneumonitis due to inhalation of food and vomit; E78.00 Pure hypercholesterolemia, unspecified; E11.40 Type 2 diabetes mellitus with diabetic neuropathy, unspecified; F05 Delirium due to known physiological condition; I10 Essential (primary) hypertension; N40.0 Benign prostatic hyperplasia without lower urinary tract symptoms; H91.90 Unspecified hearing loss, unspecified ear; Z79.890 Hormone replacement therapy; G47.30 Sleep apnea, unspecified; K21.9 Gastro-esophageal reflux disease without esophagitis; M19.90 Unspecified osteoarthritis, unspecified site; M10.9 Gout, unspecified; Z75.8 Other problems related to medical facilities and other health care; G62.9 Polyneuropathy, unspecified; F03.90 Unspecified dementia, unspecified severity, without behavioral disturbance, psychotic disturbance, mood disturbance, and anxiety; E11.42 Type 2 diabetes mellitus with diabetic polyneuropathy; E03.9 Hypothyroidism, unspecified; E66.9 Obesity, unspecified; Z96.659 Presence of unspecified artificial knee joint; E78.2 Mixed hyperlipidemia; G31.84 Mild cognitive impairment of uncertain or unknown etiology; Z98.890 Other specified postprocedural states; Z88.0 Allergy status to penicillin; Z88.7 Allergy status to serum and vaccine; Z91.013 Allergy to seafood; Z79.899 Other long term (current) drug therapy; Z79.01 Long term (current) use of anticoagulants; Z79.2 Long term (current) use of antibiotics; Z79.84 Long term (current) use of oral hypoglycemic drugs; Z86.711 Personal history of pulmonary embolism; Z86.010 Personal history of colon polyps; Z87.81 Personal history of (healed) traumatic fracture; Z68.31 Body mass index [BMI] 31.0-31.9, adult
CPT/HCPCS: 0240U; 36415; 71045; 80048; 80053; 81003; 82947; 83036; 83605; 83735; 85025; 87040; 93005; 96365; 96366; 96367; 96375; 99285; 93010; 99222; 99232; 99238; A9270-GY; J0456; J0696; J1630; J1815-GY; J1836; J3372; J3490; J7030; J7050

== ENCOUNTER 2025-03-05 12:51 | Emergency (ER) | payer MEDICARE, OTHER ==
[2025-03-05] MEDS ORDERED: Sodium Chloride 0.9% 10 ML Syringe FLUSH PRN (13:47)
[2025-03-05] MEDS ORDERED: Sodium Chloride 0.9% 2.5 ML Syringe FLUSH PRN (13:47)
[2025-03-05] MEDS: Ondansetron 4 MG/2 ML SDV IVPUSH ONE (14:30)
[2025-03-05] MEDS: fentaNYL 50 MCG/ML SDV IVPUSH PRN (14:32)
[2025-03-05 14:52] LABS: BASOPHILS ABSOLUTE AUTO 0.03 K/uL (0.00-0.20); BASOPHILS PERCENT AUTO 0.3 % (0.0-1.0); EOSINOPHILS ABSOLUTE AUTO 0.06 K/uL (0.00-0.45); EOSINOPHILS PERCENT AUTO 0.5 % (0.0-6.0); IMMATURE GRAN ABSOLUTE AUTO 0.03 K/uL (0.00-0.05); IMMATURE GRAN PERCENT AUTO 0.3 % (0.0-0.4); LYMPHOCYTES ABSOLUTE AUTO 1.34 K/uL (1.00-4.80); LYMPHOCYTES PERCENT AUTO 12.3 % (24.0-44.0); MEAN PLATELET VOLUME 9.2 fL (9.4-12.4); MONOCYTES ABSOLUTE AUTO 0.57 K/uL (0.00-0.80); MONOCYTES PERCENT AUTO 5.2 % (0.0-8.0); NEUTROPHILS ABSOLUTE AUTO 8.88 K/uL (1.80-7.70); NEUTROPHILS PERCENT AUTO 81.4 % (41.0-71.0); NRBC ABSOLUTE 0.00 K/uL (0.00-0.02); NRBC PERCENT 0.0 /100WBC (0.0-0.2); PLATELET COUNT,PLT 273 K/uL (150-400); RED BLOOD CELL COUNT 3.91 M/uL (4.52-5.90); WHITE BLOOD CELL COUNT,WBC 10.91 K/uL (3.9-11.3)
[2025-03-05 15:15] LABS: A/G RATIO 1.0 (0.9-1.6); ALANINE AMINOTRANSFERASE,ALT 25.0 IU/L (14-63); ASPARTATE AMNIOTRANSFERASE,AST 20.0 IU/L (15-37); BILIRUBIN TOTAL 0.6 mg/dL (0.2-1.0); BLOOD UREA NITROGEN,BUN 16.0 mg/dL (7.0-18.0); CARBON DIOXIDE,CO2 25.4 mmol/L (21.0-32.0); CHLORIDE,CL 99.0 mmol/L (98-107); CREATININE 0.9 mg/dL (0.8-1.3); EST CRCL DRUG DOSING (CG) 65.44 mL/min; ESTIMATED GFR 87.0 mL/min (>60); GLUCOSE RANDOM 137.0 mg/dL (74-106); POTASSIUM,K 4.1 mmol/L (3.5-5.1); PROTEIN TOTAL,TP 7.3 g/dL (6.4-8.2); SODIUM,NA 134.0 mmol/L (136-148)
[2025-03-05] MEDS: fentaNYL 50 MCG/ML SDV IVPUSH ONE (16:17)
[2025-03-05 18:40] VITALS: BP 163/98; PULSE 92
== END 2025-03-05 18:40 | disposition home or self-care (01) ==
LOC: MW.ED 12:51
DX: K56.41 Fecal impaction (principal); I10 Essential (primary) hypertension; E11.9 Type 2 diabetes mellitus without complications; E03.9 Hypothyroidism, unspecified; E66.9 Obesity, unspecified; M19.90 Unspecified osteoarthritis, unspecified site; Z79.899 Other long term (current) drug therapy; Z79.890 Hormone replacement therapy; Z88.8 Allergy status to other drugs, medicaments and biological substances; Z91.013 Allergy to seafood; Z88.7 Allergy status to serum and vaccine; Z68.30 Body mass index [BMI] 30.0-30.9, adult
CPT/HCPCS: 36415; 74018; 80053; 83605; 83690; 85025; 96374; 96375; 96376; 99284; A9270; J2405; J3010; J7030

== ENCOUNTER 2025-03-08 13:56 | Observation (INO) | payer MEDICARE, OTHER ==
[2025-03-08] MEDS ORDERED: Sodium Chloride 0.9% 10 ML Syringe FLUSH PRN ×2 (14:00→17:43)
[2025-03-08] MEDS ORDERED: Sodium Chloride 0.9% 2.5 ML Syringe FLUSH PRN ×2 (14:00→17:43)
[2025-03-08] MEDS: Iopamidol 755 MG/ML 500 ML Multipack Bottle IVPUSH STA (14:41)
[2025-03-08 15:57] LABS: BASE EXCESS VENOUS 3.7 (-2.0-3.0); BICARBONATE,VENOUS 29.0 mEq/L (22-29); PCO2 VENOUS 43.0 mmHG (41-51); PH,VENOUS 7.43 (7.32-7.43); PO2 VENOUS 39.0 mmHG (35-45)
[2025-03-08 16:06] LABS: APPEARANCE,URINE CLEAR; GLUCOSE,URINE NEGATIVE (NEGATIVE); OCCULT BLOOD,URINE NEGATIVE (NEGATIVE)
[2025-03-08 16:38] LABS: PRO B-TYPE NATRIUR PEPT,BNPPRO 824 pg/mL (0-450)
[2025-03-08] MEDS: Levofloxacin/Dextrose 5%-Water 750 MG in Premix Bag 1 BAG IV ONE (17:02)
[2025-03-08] MEDS ORDERED: Ondansetron 4 MG/2 ML SDV IVPUSH PRN (17:43)
[2025-03-08] MEDS ORDERED: Ondansetron 4 MG Tab.DIS PO PRN (17:43)
[2025-03-08] MEDS ORDERED: 50% Dextrose in Water 50 ML Syringe IVPUSH PRN (19:43)
[2025-03-09 06:01] LABS: BASOPHILS ABSOLUTE AUTO 0.03 K/uL (0.00-0.20); BASOPHILS PERCENT AUTO 0.3 % (0.0-1.0); EOSINOPHILS ABSOLUTE AUTO 0.15 K/uL (0.00-0.45); EOSINOPHILS PERCENT AUTO 1.6 % (0.0-6.0); IMMATURE GRAN ABSOLUTE AUTO 0.02 K/uL (0.00-0.05); IMMATURE GRAN PERCENT AUTO 0.2 % (0.0-0.4); LYMPHOCYTES ABSOLUTE AUTO 1.49 K/uL (1.00-4.80); LYMPHOCYTES PERCENT AUTO 16.3 % (24.0-44.0); MEAN PLATELET VOLUME 9.2 fL (9.4-12.4); MONOCYTES ABSOLUTE AUTO 0.59 K/uL (0.00-0.80); MONOCYTES PERCENT AUTO 6.4 % (0.0-8.0); NEUTROPHILS ABSOLUTE AUTO 6.88 K/uL (1.80-7.70); NEUTROPHILS PERCENT AUTO 75.2 % (41.0-71.0); NRBC ABSOLUTE 0.00 K/uL (0.00-0.02); NRBC PERCENT 0.0 /100WBC (0.0-0.2); PLATELET COUNT,PLT 206 K/uL (150-400); RED BLOOD CELL COUNT 3.35 M/uL (4.52-5.90); WHITE BLOOD CELL COUNT,WBC 9.16 K/uL (3.9-11.3)
[2025-03-09 06:30] LABS: A/G RATIO 0.8 (0.9-1.6); ALANINE AMINOTRANSFERASE,ALT 20.0 IU/L (14-63); ASPARTATE AMNIOTRANSFERASE,AST 18.0 IU/L (15-37); BILIRUBIN TOTAL 0.5 mg/dL (0.2-1.0); BLOOD UREA NITROGEN,BUN 8.0 mg/dL (7.0-18.0); CARBON DIOXIDE,CO2 26.0 mmol/L (21.0-32.0); CHLORIDE,CL 102.0 mmol/L (98-107); CREATININE 0.9 mg/dL (0.8-1.3); EST CRCL DRUG DOSING (CG) 69.85 mL/min; ESTIMATED GFR 87.0 mL/min (>60); GLUCOSE RANDOM 89.0 mg/dL (74-106); PHOSPHORUS 3.1 mg/dL (2.6-4.7); POTASSIUM,K 3.9 mmol/L (3.5-5.1); PROTEIN TOTAL,TP 5.9 g/dL (6.4-8.2); SODIUM,NA 137.0 mmol/L (136-148)
[2025-03-09 12:16] VITALS: BP 148/74; PULSE 54
[2025-03-09] MEDS ORDERED: Levofloxacin/Dextrose 5%-Water 750 MG in Premix Bag 1 BAG IV SCH (16:00)
== END 2025-03-09 12:16 | disposition home or self-care (01) ==
LOC: MW.ED 13:56 → MW.MS 16:15
PROVIDERS: ADMIT Internal Medicine; ATTEND Internal Medicine
DX: J18.9 Pneumonia, unspecified organism (principal); F03.90 Unspecified dementia, unspecified severity, without behavioral disturbance, psychotic disturbance, mood disturbance, and anxiety; R53.1 Weakness; D72.829 Elevated white blood cell count, unspecified; N40.0 Benign prostatic hyperplasia without lower urinary tract symptoms; E11.9 Type 2 diabetes mellitus without complications; E78.00 Pure hypercholesterolemia, unspecified; E03.9 Hypothyroidism, unspecified; E66.9 Obesity, unspecified; I10 Essential (primary) hypertension; Z79.84 Long term (current) use of oral hypoglycemic drugs; Z86.711 Personal history of pulmonary embolism; Z88.0 Allergy status to penicillin; Z91.013 Allergy to seafood; Z88.7 Allergy status to serum and vaccine; Z79.890 Hormone replacement therapy; Z79.899 Other long term (current) drug therapy; Z20.822 Contact with and (suspected) exposure to COVID-19; Z87.891 Personal history of nicotine dependence
CPT/HCPCS: 36415; 71046; 71046-26; 74177; 74177-26; 80053; 81003; 82803; 82947; 83735; 83880; 84100; 84484; 85025; 87040; 87428-QW; 96361; 96365; 99284; 99285-25; A9270-GY; J1815-GY; J1956; J7030; Q9967